=== PATIENT | female | born 1960 | race Caucasian/White ===

== ENCOUNTER → 2016-08-12 | Outpatient (CLI) | payer MEDICARE, OTHER ==
[2015-01-20 20:49] VITALS: BP 229/91
[~2016-08-12] MED LIST: ALBU25PO2 MC; ALPR0.25 PO; AMIT75TA PO; BACLOFEN IT ONE; BUPIVACAINE MPF 0.75% 30 ML VIAL. ONE; BUPR150T6 PO; BUPR300T4 PO; CITA40TA5 PO; CLON0.5T3 PO; CLONIDINE PF 5,000 MCG/10 ML VIAL for PC Charging ONLY. EP ONE; CYCL10TA2 PO; ESTR0.9T PO; EXEN10PE SQ; FENO134C PO; HYDR-2672 PO; HYDR10TA2 PO; HYDR25TA9 PO; INSU100I13 SQ; LAMO200T PO; LIDO700A4 TP; LIDOCAINE/PRILOCAINE TOPICAL CREAM 5GM TUBE. TP ONE; LIPITOR80 MG PO; LOSA100T6 PO; LOVA20TA2 PO; MEDR2.5T5 PO; METF10002 PO; NAPR500T3 PO; OMEP40CA5 PO; POTA10TA10 PO; PREG75CA PO; PROAIR HFA8.5 GM IH; [UNRECOGNIZED DRUG - OTHER]; [UNRECOGNIZED DRUG - OTHER] IT ONE; humalog
--- NOTE | 2016-08-12 22:11 | PN ---
DATE: 08/12/2016 DIAGNOSES: 1. Chronic pain syndrome. 2. Post-lumbar laminectomy syndrome with intrathecal pump therapy. HISTORY OF PRESENT ILLNESS: The patient is a 56-year-old female who returns for followup status post medication management with intrathecal pump, baclofen, clonidine and bupivacaine. The patient reports she is doing fairly well with this. She still has a dull aching pain mostly in her hips bilaterally, has been noticing this most when she is sleeping on her right or left side, essentially equal right and left but reports as 6 on a scale of 10, dull aching pain across the low back as well, more or less very well controlled based pain with her intrathecal pump and oral medications to about 70%-75% improvement, but the hip pain has been more recently over the past 3-4 weeks and again more noticeable when sleeping. The patient reports no new motor or sensory deficits, no new bowel or bladder incontinence or other complaints. PHYSICAL EXAMINATION: VITAL SIGNS: The patient's blood pressure 149/64, pulse 69, respirations are 18, temperature 97.9 degrees Fahrenheit, and weight is 155 pounds. GENERAL: The patient is awake, alert, oriented, appropriate and very pleasant demeanor. HEENT: Head shows normocephalic and atraumatic. Extraocular movements are intact and symmetrical. Oral cavity, mucous membranes are moist and pink. Dentition is intact. NECK: Shows anterior throat supple without palpable lymphadenopathy noted. Swallow reflex is symmetrical. CHEST: Shows normal on inspection. Breath sounds clear to auscultation bilaterally. HEART: Shows S1 and S2 clear. No murmurs auscultated. ABDOMEN: Soft, nontender, and nondistended. No palpable organomegaly is noted. Easily palpable intrathecal pump is noted in the right lower quadrant with surgical scars noted bilaterally. Pump is mobile, but nontender with palpation. EXTREMITIES: The patient's lower extremities showed deep tendon reflexes 1+ in the patellar and tendo calcaneus tendons. Motor exam is strong with 5/5 dorsiflexion, extension, quadriceps and hamstring flexion. The patient has some moderate tenderness with palpation over the lateral aspect of the superior iliac crest as well as the anterior superior iliac spines but only more moderate pain with palpation bilaterally, no abnormalities are noted. The patient shows good rotational motion of the hip joints, both laterally as well as forward flexion and reverse extension without significant pain. With standing, the patient reports no significant pain in the hip joints with weightbearing on right or left leg with standing on one side or the other as well. Options were discussed with the patient. The patient's old chart was reviewed as her current medication regimen updated. Current review of systems updated today as well. We will proceed with intrathecal pump refill and reprogramming as well as PTM reprogramming. Risks were discussed including but not limited to bleeding, infection, possibility of extravasation of medication. No resuscitative measures are necessary as well as poor results regarding pain control. The patient understands and wishes to proceed. Under sterile prep and drape, the patient's pump was draped in usual fashion on the right side. After topical anesthetic was applied approximately 10 minutes prior to the procedure with Emla cream, then sterile prep and drape was performed. The pump was accessed without difficulty using a 22-gauge noncutting [employer] kit needle. Aspiration of 6 mL of the old medication was withdrawn and discarded. The medication of 40 mL containing bupivacaine, clonidine, and baclofen as noted was replaced into the pump. Needle was withdrawn. Sterile bandage was applied. The patient tolerated the procedure well, had no complications. The patient's pump was reprogrammed and will be ready for refill on 10/20/2016 and she will keep an eye on this with her PTM, was reprogrammed today as well. DIAGNOSIS: Chronic pain syndrome with post-lumbar laminectomy syndrome. PROCEDURES: Intrathecal pump refill and reprogramming with PT and reprogramming under sterile prep and drape using local anesthetic, topical. MEDICATIONS WITHDRAWN: A 6 mL of old medication replaced with 40 mL of bupivacaine, clonidine, and baclofen solution for intrathecal use. CONDITION AT DISCHARGE: Stable. The patient tolerated the procedure well, had no complications. ALLISON LYNNE MD DR: MARSHAL/eusebio JOB#: [id number] / [id number]
== END | disposition home or self-care (01) ==
LOC: PNCL 08:24
PROVIDERS: ATTEND Anesthesiology
DX: G89.4 Chronic pain syndrome (principal); M96.1 Postlaminectomy syndrome, not elsewhere classified; E78.00 Pure hypercholesterolemia, unspecified; I10 Essential (primary) hypertension; J44.9 Chronic obstructive pulmonary disease, unspecified; K21.9 Gastro-esophageal reflux disease without esophagitis; E66.9 Obesity, unspecified; E11.9 Type 2 diabetes mellitus without complications; F41.9 Anxiety disorder, unspecified; F32.9 Major depressive disorder, single episode, unspecified; M19.90 Unspecified osteoarthritis, unspecified site; Z87.39 Personal history of other diseases of the musculoskeletal system and connective tissue
CPT/HCPCS: 95991; J0475; J0735; J3490

== ENCOUNTER → 2016-09-07 | Outpatient (CLI) | payer MEDICARE, OTHER ==
[2015-01-20 20:49] VITALS: BP 229/91
[~2016-09-07] MED LIST changes: -BACLOFEN IT ONE; -BUPIVACAINE MPF 0.75% 30 ML VIAL. ONE; -CLONIDINE PF 5,000 MCG/10 ML VIAL for PC Charging ONLY. EP ONE; -LIDOCAINE/PRILOCAINE TOPICAL CREAM 5GM TUBE. TP ONE; -[UNRECOGNIZED DRUG - OTHER] IT ONE
--- NOTE | 2016-09-08 06:53 | PAIN ---
DATE OF SERVICE: 09/07/2016 PROGRESS NOTE FOR PAIN CLINIC DIAGNOSES: 1. Chronic pain syndrome. 2. Post-lumbar laminectomy syndrome with intrathecal pump and intrathecal therapy. HISTORY OF PRESENT ILLNESS: The patient is a 56-year-old female who returns for followup status post intrathecal pump therapy. The patient last seen 08/12/2016. The patient reports she was doing very well except for the last week or so, she fell out of bed and has been having increased pain across her low back and hips, which is generally well controlled with her intrathecal pump medication and she had given it about a week or so to see if the pain would decrease on its own, but has not. She has been doing some stretching exercises, trying to walk and some heat and massage therapy, says it has not decreased the pain, rather constant, is about a 4 on a scale of 10 currently, but can be as high as a 7 on a scale of 10 with increased activity. The patient reports no other injury or accidents, reports that she feels that her mattress may be exacerbating the pain as well and is looking at replacing this soon. The patient reports otherwise no changes. No other side effects or other complaints. PHYSICAL EXAMINATION: VITAL SIGNS: The patient's blood pressure is 149/83, pulse 59, respirations 20, temperature 98.3 degrees Fahrenheit, weight is 156 pounds. GENERAL: The patient is awake, alert, oriented, appropriate, has a very pleasant demeanor. HEENT: Shows normocephalic, atraumatic. Extraocular movements are intact and symmetrical. The patient wears eye glasses. Oral cavity, mucous membranes are moist and pink. Dentition is intact. NECK: Shows anterior throat supple. CHEST: Shows breath sounds clear to auscultation bilaterally, normal on inspection. HEART: Shows S1 and S2 clear. No murmurs are auscultated. ABDOMEN: Soft, nontender, nondistended. Easily palpable intrathecal pump is noted in the right lower quadrant, which is mobile, but nontender. PLAN: Options were discussed with the patient. The patient's old chart was reviewed as was her current medication regimen and updated. Current review of systems updated today as well and we will reprogram the patient's pump for approximate 10% increase with the medications of bupivacaine, baclofen and clonidine. The patient's PTM was reprogrammed as well with still 0.3 mg driving medicine of bupivacaine to be administered on a lockout of 3 hours and a maximum of 5 in a 24-hour period. The patient was cautioned as to the increase in rate and PTM use with the intrathecal pump and will follow up prior to 10/20/2016 for refill if necessary or if the medication is too high or if she is having too much numbness or flaccidity in the lower extremities, we will turn it back down if necessary. The patient was encouraged to look into a different mattress as well as she seems to be having some significant pain in this region at night. ALLISON LYNNE MD DR: MARSHAL/eusebio JOB#: [id number] / [id number]
== END | disposition home or self-care (01) ==
LOC: PNCL 13:36
PROVIDERS: ATTEND Anesthesiology
DX: G89.4 Chronic pain syndrome (principal); M96.1 Postlaminectomy syndrome, not elsewhere classified; E78.00 Pure hypercholesterolemia, unspecified; I10 Essential (primary) hypertension; J44.9 Chronic obstructive pulmonary disease, unspecified; K21.9 Gastro-esophageal reflux disease without esophagitis; E11.9 Type 2 diabetes mellitus without complications; M19.90 Unspecified osteoarthritis, unspecified site; F41.9 Anxiety disorder, unspecified; F32.9 Major depressive disorder, single episode, unspecified; D64.9 Anemia, unspecified
CPT/HCPCS: 95991

== ENCOUNTER → 2016-10-20 | Outpatient (CLI) | payer MEDICARE, OTHER ==
[2015-01-20 20:49] VITALS: BP 229/91
[~2016-10-20] MED LIST changes: +BACLOFEN IT ONE; +BUPIVACAINE MPF 0.75% 30 ML VIAL. ONE; +MEDR2.5T28 PO; -MEDR2.5T5 PO; +METF-620 PO; -METF10002 PO; -POTA10TA10 PO; +POTA10TA12 PO; +[UNRECOGNIZED DRUG - OTHER] IT ONE; +cloNIDine PF 5,000 MCG/10 ML VIAL EP ONE
--- NOTE | 2016-10-21 02:31 | PAIN ---
DATE OF SERVICE: 10/20/2016 PROGRESS NOTE FOR PAIN CLINIC DIAGNOSES: 1. Chronic pain syndrome. 2. Post-lumbar laminectomy syndrome with intrathecal pump therapy. HISTORY OF PRESENT ILLNESS: The patient is a 56-year-old female who returns for followup status post intrathecal pump therapy with baclofen, clonidine and bupivacaine. The patient reports she is doing fairly well. We had seen her on 09/07/2016 with the increase in the pump by 10%. The patient reports she is doing much better since that time, still has some pain in the low back and bilateral lower extremities and some balance issues that she is noticing. She is having some difficulty stumbling. She is still using cane in her right hand to walk, but is noticing that her balance is becoming less and less consistent and she has been having some stumbling and falls lately. The patient reports otherwise the pain is fairly well controlled at 5 on a scale of 10 today, can be as high as 8, but generally not as much. The patient reports this has not awaken her from sleep. She is sleeping well at night. Better with lying down or sitting. The pain in the back and leg is aching, sharp, dull, off and on pain with some cramping also. The patient reports no new motor or sensory deficits, no new bowel or bladder incontinence. No side effects with the medication. PHYSICAL EXAMINATION: VITAL SIGNS: Today, the patient's blood pressure is ____, pulse 72, respirations are 18, temperature is 98.1 degrees Farenheit, weight is 156 pounds. GENERAL: The patient is awake, alert, oriented, appropriate, very pleasant demeanor. HEENT: Head shows normocephalic, atraumatic. Extraocular movements are intact and symmetrical. Oral cavity, mucous membranes moist and pink. Dentition is intact. NECK: Shows anterior throat supple without palpable lymphadenopathy noted. Swallow reflex is symmetrical. CHEST: Shows normal on inspection. Breath sounds are clear to auscultation bilaterally. HEART: Shows S1 and S2 clear. ABDOMEN: Soft, nontender, nondistended. No palpable organomegaly. No rebound or guarding demonstrated. Easily palpable intrathecal pump is noted on the right lower quadrant which is mobile, but nontender to palpation. EXTREMITIES: The patient's lower extremities showed deep tendon reflexes at 1+ in the patellar and tendo calcaneus tendons. Motor exam is strong with 5/5 dorsiflexion, extension, quadriceps and hamstring flexion and symmetrical. Options were discussed with the patient. The patient's old chart was reviewed as her current medication regimen updated. Current review of systems updated today as well. We will refill patient's intrathecal pump. Under sterile prep and drape with reprogramming of the pump as well as her PTM device for volume changes and PTM settings, the patient was consented and risks were discussed including, but not limited to, bleeding, infection, possibility of extravasation of medication and resuscitative measures with absorption of ____ medication as well as pump damage and poor results regarding pain control. The patient understands and wishes to proceed. The patient will return to the clinic prior to 12/24/2016 for next refill or sooner if necessary. The patient was counseled on activity level as well as side effects to be aware of and will follow up as scheduled. The patient is also having some difficulty controlling her blood sugars and will follow up with her primary care physician who is helping her regularize this as soon as next week and we encouraged her to keep that appointment as well. DIAGNOSES: Chronic pain syndrome with post-lumbar laminectomy syndrome. PROCEDURE: Intrathecal pump interrogation, refill and reprogramming. Under sterile prep and drape using no anesthetic, 22 gauge noncutting [employer] kit needle, pump was accessed without difficulty. Under sterile prep and drape and sterile technique, 6 mL of old medication was withdrawn and discarded and 40 mL of the medication containing bupivacaine, clonidine and baclofen was then replaced. The sterile needle was withdrawn and sterile bandage applied. The patient tolerated the procedure well and had no complications. CONDITION AT DISCHARGE: Stable. ALLISON LYNNE MD DR: MARSHAL/eusebio JOB#: [id number] / [id number]
== END | disposition home or self-care (01) ==
LOC: PNCL 09:52
PROVIDERS: ATTEND Anesthesiology
DX: G89.4 Chronic pain syndrome (principal); M96.1 Postlaminectomy syndrome, not elsewhere classified; E78.00 Pure hypercholesterolemia, unspecified; I10 Essential (primary) hypertension; J44.9 Chronic obstructive pulmonary disease, unspecified; E66.9 Obesity, unspecified; K21.9 Gastro-esophageal reflux disease without esophagitis; F41.9 Anxiety disorder, unspecified; F32.9 Major depressive disorder, single episode, unspecified; D64.9 Anemia, unspecified; M19.90 Unspecified osteoarthritis, unspecified site; Z86.69 Personal history of other diseases of the nervous system and sense organs; Z87.39 Personal history of other diseases of the musculoskeletal system and connective tissue
CPT/HCPCS: 62370; J0475; J0735; J3490; 95991

== ENCOUNTER → 2017-01-03 | Outpatient (CLI) | payer MEDICARE, OTHER ==
[2015-01-20 20:49] VITALS: BP 229/91
[~2017-01-03] MED LIST changes: -EXEN10PE SQ; +EXEN10PE3 SQ; -HYDR-2672 PO; +HYDR-2766 PO
--- NOTE | 2017-01-03 23:13 | PAIN ---
DATE OF SERVICE: 01/03/2017 PROGRESS NOTE FOR PAIN CLINIC DIAGNOSES: 1. Chronic pain syndrome. 2. Post-lumbar laminectomy syndrome with intrathecal pump therapy and PTM therapy. HISTORY OF PRESENT ILLNESS: The patient, a 56-year-old female, returns for followup status post medication management with intrathecal pump containing baclofen, clonidine and bupivacaine. The patient reports she is doing quite well with this, pain level is about 3 on a scale of 10 at its worst, worse with activity, pain across the low back into bilateral lower extremities, mostly in the hips and thighs, but the patient reports it is only aching, dull pain, worse with activity, but fairly well controlled by about 75% with the intrathecal pump. The patient reports no side effects with the medications and reports she is doing well. She has been increasing her activity recently and she has been watching her grandchild at home most days during summer break from school and this does increase her pain to some extent, but she is able to control it fairly well with her PTM. The patient reports no side effects with medications, no new motor or sensory deficits. The patient reports it awakens her from sleep occasionally, but not every night and she is able to reposition herself and get back to sleep fairly quickly. The patient reports no new motor or sensory deficits, no new bowel or bladder incontinence or other complaints. PHYSICAL EXAMINATION: VITAL SIGNS: The patient's blood pressure is 150/73, pulse 64, respirations 18, temperature 98.0 degrees Fahrenheit, weight is 159 pounds. GENERAL: The patient is awake, alert, oriented, appropriate, has a very pleasant demeanor. HEENT: Shows normocephalic, atraumatic. Extraocular movements are intact and symmetrical. Oral cavity shows mucous membranes moist and pink. Dentition is intact. NECK: Shows anterior throat supple without palpable lymphadenopathy noted. Swallow reflex is symmetrical. Neck shows full rotational motion of the cervical spine without difficulty or tenderness. CHEST: Shows normal on inspection. Breath sounds are clear to auscultation bilaterally. HEART: Shows S1 and S2 clear. No murmurs auscultated. ABDOMEN: Soft, nontender, nondistended. No palpable organomegaly is noted. No rebound or guarding demonstrated. Easily palpable intrathecal pump is noted in the right lower quadrant, which is mobile and nontender. BACK: Shows spine grossly in the midline, well-healed surgical scar in the lumbar distribution on inspection and paraspinous musculature is symmetrical as well, with palpation shows some mild to moderate tenderness in the lower lumbar distribution in the paraspinous muscles, but only diffusely without radiation. No tenderness over the sacrum or sacroiliac regions or the spinous processes. The patient does show good rotational motion of the lumbar spine, both laterally as well as extension and flexion with some minor pain with extension, but not with forward flexion. Again, no radiation noted. EXTREMITIES: The patient's lower extremities showed deep tendon reflexes at 1+ in the patellar and tendo calcaneus tendons. Motor exam is strong with dorsiflexion, extension, quadriceps and hamstring flexion rated at 5/5 and equal. The patient is walking with a cane in her right hand, has a significant antalgic gait and appears to limp favoring the right lower extremity slightly. Peripheral pulses are 1+ posterior tibial and dorsalis pedis pulses. No peripheral edema is noted bilaterally. PLAN: Options were discussed with the patient. The patient's old chart was reviewed as was her current medication regimen and updated. Current review of systems updated today as well. We will proceed with an intrathecal pump refill and reprogramming as well as PTM reprogramming. Risks were discussed including, but not limited to bleeding, infection, possibility of extravasation of the intrathecal medication and resuscitative measures if necessary as well as poor results regarding pain control. The patient understands and wishes to proceed. The patient will return to the clinic prior to 03/09/2017, which is her next refill date at full use and will keep track of this with her PTM as well. The patient was counseled as to her activity level as well as side effects to be aware of and new medication adjustment with the PTM use and cautioned. The patient was encouraged to increase her activity as tolerated. Will maintain the safety of her pump on her abdomen without significant restrictive clothing, etc. DIAGNOSES: Chronic pain syndrome, with post-lumbar laminectomy syndrome. PROCEDURE: Intrathecal pump refill and reprogramming, using a 22-gauge noncutting [employer] kit needle, under sterile prep and drape, with medications withdrawn, 2 mL of old medication and medication replaced is 40 mL of medication containing bupivacaine, baclofen and clonidine as documented for the intrathecal mixture. Sterile needle was withdrawn. Sterile bandage placed. Pump was then reprogrammed and recalibrated for PTM settings as well as volume and rate. The patient will follow up prior to 03/09/2017. CONDITION AT DISCHARGE: Stable. The patient tolerated the procedure well, had no complications. ALLISON LYNNE MD DR: MARSHAL/eusebio JOB#: [id number] / [id number]
== END | disposition home or self-care (01) ==
LOC: PNCL 10:58
PROVIDERS: ATTEND Anesthesiology
DX: M96.1 Postlaminectomy syndrome, not elsewhere classified (principal); I11.0 Hypertensive heart disease with heart failure; I50.9 Heart failure, unspecified; J44.9 Chronic obstructive pulmonary disease, unspecified; E78.00 Pure hypercholesterolemia, unspecified; E66.9 Obesity, unspecified; Z68.43 Body mass index [BMI] 50.0-59.9, adult; M19.90 Unspecified osteoarthritis, unspecified site; D64.9 Anemia, unspecified; F41.9 Anxiety disorder, unspecified; F32.9 Major depressive disorder, single episode, unspecified; F17.200 Nicotine dependence, unspecified, uncomplicated; Z86.69 Personal history of other diseases of the nervous system and sense organs; Z87.39 Personal history of other diseases of the musculoskeletal system and connective tissue; Z91.048 Other nonmedicinal substance allergy status; Z88.8 Allergy status to other drugs, medicaments and biological substances
CPT/HCPCS: 62370; J0475; J0735; J3490; 95991

== ENCOUNTER 2017-01-16 18:05 | Inpatient (IN) | payer MEDICARE, OTHER ==
[~2017-01-16] VITALS: Ht 172.7 cm; Wt 73.1 kg
[~2017-01-16 18:05] MED LIST changes: -BACLOFEN IT ONE; -BUPIVACAINE MPF 0.75% 30 ML VIAL. ONE; -[UNRECOGNIZED DRUG - OTHER] IT ONE; -cloNIDine PF 5,000 MCG/10 ML VIAL EP ONE
[2017-01-16 18:25] LABS: BASO # 0.1 x10^3/uL (0.0-0.2); BASO % 1 % (0-3); EOS % 2 % (0-3); HEMATOCRIT 38.5 % (36.0-47.0); HEMOGLOBIN 13.4 g/dL (12.0-15.5); LYMPH # 2.6 x10^3/uL (1.0-4.8); LYMPH % 32 % (24-48); MEAN CORPUSCULAR HEMOGLOBIN 30 pg (25-35); MEAN CORPUSCULAR HGB CONC 35 g/dL (31-37); MEAN CORPUSCULAR VOLUME 86 fL (79-100); MONO % 8 % (0-9); NEUT % 57 % (31-73); PLATELET COUNT 323 x10^3/uL (140-400); RED BLOOD COUNT 4.46 x10^6/uL (3.50-5.40); RED CELL DISTRIBUTION WIDTH 12.4 % (11.5-14.5); WHITE BLOOD COUNT 8.2 x10^3/uL (4.0-11.0)
[2017-01-16] MEDS: NITROGLYCERIN SUBLINGUAL 0.4 MG BOTTLE OF 25. SL PRN ×2 (18:26→19:20)
[2017-01-16] MEDS ORDERED: ASPIRIN 325 MG TABLET PO ONE (18:30)
[2017-01-16 18:37] LABS: INR 1.1 (0.8-1.1); PROTHROMBIN TIME PATIENT 13.6 SEC (11.7-14.0)
[2017-01-16 18:39] LABS: CALCIUM 9.5 mg/dL (8.5-10.1); CREATININE 1.1 mg/dL (0.6-1.0); POTASSIUM 3.6 mmol/L (3.5-5.1)
[2017-01-16 18:44] LABS: TOTAL BILIRUBIN 0.3 mg/dL (0.2-1.0); TOTAL PROTEIN 7.9 g/dL (6.4-8.2)
[2017-01-16 20:15] VITALS: BP 119/43
[2017-01-16] MEDS ORDERED: HEPARIN for IV BOLUS 10,000 UNIT/10 ML VIAL. IV PRN (20:15)
[2017-01-16] MEDS ORDERED: HEPARIN for IV BOLUS 10,000 UNIT/10 ML VIAL. IV ONE (20:15)
[2017-01-16] MEDS ORDERED: NITROGLYCERIN SUBLINGUAL 0.4 MG BOTTLE OF 25. SL PRN (20:15)
[2017-01-16] MEDS ORDERED: ONDANSETRON PF 4 MG/2 ML VIAL. IV PRN (20:15)
[2017-01-16] MEDS ORDERED: ACETAMINOPHEN 325 MG TABLET. PO PRN (20:15)
[2017-01-16] MEDS ORDERED: MORPHINE SULFATE 4 MG/ML DISP.SYRIN. IV PRN (20:15)
[2017-01-16] MEDS ORDERED: HEPARIN 25,000UTS/500ML PREMIX 500 ML IV PRN ×2 (20:15→22:00)
[2017-01-16] MEDS: IPRATRPIUM/ALBUTEROL 0.5/2.5MG 3 ML NEBU. NEB SCH (20:26)
--- NOTE | 2017-01-16 20:47 | PHYS DOC ---
Past Medical History Past Medical History: Anxiety, Depression, Diabetes-Type II, Hypertension, Other Additional Past Medical Histor: shingles Past Surgical History: Other Additional Past Surgical Histo: pain pump insertion Alcohol Use: None Drug Use: Marijuana Adult General Chief Complaint Chief Complaint: CHEST PAIN HPI HPI Patient is a 56 year old female who presents with chest pain. The patient reports intermittent symptoms since yesterday, primarily occurring with minimal exertion. She reports pressure-like substernal chest pain with radiation to her back. Reports shortness of breath, nausea, diaphoresis. Denies fevers or chills , cough, lower extremity pain or swelling. She has history of angina, states this is different from her usual chest pain. She has history of COPD, diabetes, hypertension. She is a former smoker. PCP is Dr. Campbell and her cutter operator asbestos shingle is Dr. Marinelli. Review of Systems Review of Systems Constitutional: Denies fever or chills Eyes: Denies change in visual acuity HENT: Denies nasal congestion or sore throat Respiratory: Denies cough, reports shortness of breath Cardiovascular: Reports chest pain, denies edema GI: Reports nausea, denies abdominal pain, vomiting, bloody stools or diarrhea : Denies dysuria or hematuria Musculoskeletal: Denies back pain or joint pain Integument: Denies rash or skin lesions Neurologic: Denies headache, focal weakness or sensory changes Current Medications Current Medications Current Medications Medications (Trade) Dose Ordered Sig/[facility] Start Time Stop Time Status Last Admin Dose Admin Aspirin (Martin Aspirin) 325 mg 1X ONCE 01/16/17 18:30 01/16/17 18:31 DC 01/16/17 18:24 325 MG Nitroglycerin (Nitrostat) 0.4 mg PRN Q5MIN PRN 01/16/17 18:30 01/16/17 19:20 0.4 MG Allergies Allergies Allergies Coded Allergies Type Severity Reaction Last Updated Verified fentanyl Allergy Severe Anaphylaxis 01/16/15 Yes iodine Allergy Intermediate 01/16/15 Yes lorazepam Allergy Intermediate CRAZY FEELINGS 01/16/15 Yes Physical Exam Physical Exam Constitutional: Well developed, well nourished, no acute distress, non-toxic appearance. HENT: Normocephalic, atraumatic, bilateral external ears normal, oropharynx moist, nose normal. Eyes: PERRLA, EOMI, conjunctiva normal, no discharge. Neck: supple, no stridor. Cardiovascular: RRR, no murmurs, no edema. Lungs & Thorax: LCTAB, no wheezing, no respiratory distress. No reproducible tenderness with palpation of her anterior chest wall. Abdomen: soft, nontender, nondistended. Skin: Warm, dry, no erythema, no rash. Back: No tenderness. Extremities: No tenderness, no edema. No calf Tenderness or swelling Neurologic: Alert and oriented X 3, no focal deficits noted. Psychologic: Affect normal, judgement normal, mood normal. Current Patient Data Vital Signs Vital Signs Date Time Temp Pulse Resp B/P (MAP) Pulse Ox O2 Delivery O2 Flow Rate FiO2 01/16/17 19:20 75 138/64 01/16/17 19:11 16 98 Room Air 01/16/17 18:08 99.0 99.0 Lab Values Laboratory Tests Test 01/16/17 18:15 White Blood Count 8.2 x10^3/uL (4.0-11.0) Red Blood Count 4.46 x10^6/uL (3.50-5.40) Hemoglobin 13.4 g/dL (12.0-15.5) Hematocrit 38.5 % (36.0-47.0) Mean Corpuscular Volume 86 fL (79-100) Mean Corpuscular Hemoglobin 30 pg (25-35) Mean Corpuscular Hemoglobin Concent 35 g/dL (31-37) Red Cell Distribution Width 12.4 % (11.5-14.5) Platelet Count 323 x10^3/uL (140-400) Neutrophils (%) (Auto) 57 % (31-73) Lymphocytes (%) (Auto) 32 % (24-48) Monocytes (%) (Auto) 8 % (0-9) Eosinophils (%) (Auto) 2 % (0-3) Basophils (%) (Auto) 1 % (0-3) Neutrophils # (Auto) 4.7 x10^3uL (1.8-7.7) Lymphocytes # (Auto) 2.6 x10^3/uL (1.0-4.8) Monocytes # (Auto) 0.6 x10^3/uL (0.0-1.1) Eosinophils # (Auto) 0.2 x10^3/uL (0.0-0.7) Basophils # (Auto) 0.1 x10^3/uL (0.0-0.2) Prothrombin Time 13.6 SEC (11.7-14.0) Prothrombin Time INR 1.1 (0.8-1.1) PTT 27 SEC (24-38) Sodium Level 136 mmol/L (136-145) Potassium Level 3.6 mmol/L (3.5-5.1) Chloride Level 97 mmol/L (98-107) L Carbon Dioxide Level 26 mmol/L (21-32) Anion Gap 13 (6-14) Blood Urea Nitrogen 21 mg/dL (7-20) H Creatinine 1.1 mg/dL (0.6-1.0) H Estimated GFR (Cockcroft-Gault) 51.0 BUN/Creatinine Ratio 19 (6-20) Glucose Level 364 mg/dL (70-99) H Calcium Level 9.5 mg/dL (8.5-10.1) Total Bilirubin 0.3 mg/dL (0.2-1.0) Aspartate Amino Transferase (AST) 8 U/L (15-37) L Alanine Aminotransferase (ALT) 19 U/L (14-59) Alkaline Phosphatase 90 U/L (46-116) Troponin I Quantitative < 0.017 ng/mL (0.000-0.055) RJ-Wex-I-Type Natriuretic Peptide 120 pg/mL (0-124) Total Protein 7.9 g/dL (6.4-8.2) Albumin 4.0 g/dL (3.4-5.0) Albumin/Globulin Ratio 1.0 (1.0-1.7) Laboratory Tests 01/16/17 18:15 Laboratory Tests 01/16/17 18:15 EKG EKG Interpreted by me: Normal sinus rhythm rate 87, no ST elevation, T waves are inverted without ST depression in leads 2, 3, aVF, V3 through V6, which appears new/more pronounced from previous study dated 01/10/2015[] Radiology/Procedures Radiology/Procedures Chest x-ray: Interpreted by me: No cardiomegaly, no infiltrate, no pneumothorax , no acute process. [] Course & Med Decision Making Course & Med Decision Making Pertinent Labs and Imaging studies reviewed. (See chart for details) The patient presents with chest pain. Administered aspirin on arrival. Pain had improved, declined need for pain medication. Obtained labs, EKG, chest x-ray. EKG concerning for new ischemic changes without STEMI. Troponin was negative. Discussed with Dr. Marinelli who agrees with admission and heparin administration. He came to the emergency Department to evaluate the patient himself. Consulted with Dr. Campbell who agrees to admit the patient to inpatient status. Patient is being admitted in stable condition. Critical care time: 35 minutes [] Dragon Disclaimer Dragon Disclaimer This electronic medical record was generated, in whole or in part, using a voice recognition dictation system. Departure Departure Impression: Primary Impression: Unstable angina Additional Impression: Hyperglycemia Disposition: ADMITTED INPATIENT Admitting Physician: Kenyetta Campbell Condition: STABLE Problem Qualifiers ANTONIO BEGUM MD Jan 16, 2017 20:47
[2017-01-16] MEDS ORDERED: AMLO5TAB2 PO (21:00)
[2017-01-16] MEDS ORDERED: ONDA4TAB10 SL (21:00)
[2017-01-16] MEDS ORDERED: MEDR2.5T PO (21:00)
[2017-01-16] MEDS: INSULIN ASPART 300 UNITS/3 ML INSULN.PEN SQ SCH (21:00)
[2017-01-16] MEDS ORDERED: DEXTROSE 50% 25 GM / 50ML DISP.SYRIN. IV PRN (21:00)
[2017-01-16] MEDS ORDERED: TOPI50TA8 PO (21:01)
[2017-01-16] MEDS ORDERED: CYCLOBENZAPRINE 10 MG TABLET. PO PRN (21:30)
[2017-01-16] MEDS ORDERED: ALPRAZolam 0.5 MG TABLET PO PRN (21:30)
[2017-01-16] MEDS ORDERED: ALBUTEROL SULFATE 2.5 MG/3 ML NEBU. NEB PRN (21:30)
[2017-01-16] MEDS: EXENATIDE 5 MCG/0.02 ML SQ SCH (21:57)
[2017-01-16] MEDS: ONDANSETRON ODT 4 MG TAB.RAPDIS. PO SCH (21:59)
[2017-01-16] MEDS: ATORVASTATIN CALCIUM 40 MG TABLET. PO SCH (21:59)
[2017-01-16] MEDS: TOPIRAMATE 25 MG TABLET. PO SCH (21:59)
[2017-01-16] MEDS: PREGABALIN 75 MG CAPSULE PO SCH (21:59)
[2017-01-16] MEDS ORDERED: INSULIN DETEMIR 300 UNITS/3 ML INSULN.PEN. SQ SCH (22:00)
[2017-01-16] MEDS ORDERED: EXENATIDE 10 MCG/0.04 ML 2.4ML PEN.INJCTR. SQ SCH (22:00)
[2017-01-16 23:05] VITALS: BP 128/40
--- NOTE | 2017-01-17 00:07 | ACF ---
Admission Forms Criteria CARDIOLOGY GRG Clinical Indications for Admission to Inpatient Care ( [place]/check or initial the applicable condition/criteria) Hospital admission is needed for appropriate care of the patient because of ANY ONE of the following: [ ] I. Hemodynamic instability as indicated by ALL of the following (1)(2)(3) (4)(5)(6)(7)(8)(9)(10) [ ]a) Vital sign abnormality not readily corrected by appropriate treatment with 12-24 hours for ANY ONE: [ ]i) Hypotension that persists despite appropriate treatment (eg, volume repletion) [ ]ii) Tachycardiathat persists despite appropriate tx ( e.g., analgesia, fluids, sedation as indicated [ ]iii) Orthostatic vital sign changes that persists despite appropriate treatment (eg, volume repletion) [ ]b) Vital sign abnormailty that is severe indicated by ANY ONE of the following: [ ]i) Inadequate perfusion indicated by ANY ONE of the following: [ ] 1) Lactic acidosis (> 2 mmol/L) [ ] 2) New abnormal capillary refill (> 3 seconds) [ ] 3) Reduced urine output [ ] 4) New altered mental status [ ] 5) Myocardial Ischemia [ ] 6) Other metabolic acidosis (arterial pH <7.35 ) not otherwise explained. [ ]ii) Mean arterial pressure[A] less than 60 mm Hg [ ]iii) Mean arterial pressure[A] less than 70 mm Hg after 30 minutes of appropriate treatment (eg, fluid resuscitation) [ ]iv) Sustained heart rate greater than 120 beats per minute in adult or child 6 years or older[B] [ ]v) IV inotropic or vasopressor medication required to maintain adequate blood pressure or perfusion [ ] II. Severe heart failure as indicated by ANY ONE of the following(17)(18) [ ]a) Respiratory distress [ ]b) Hypotension [ ]c) Debilitating anasarca refractory to therapy (eg, tissue breakdown with infection)[C](19) [ ]d) Cardiac arrhythmias of immediate concern [ ]e) Myocardial ischemia [ ] III. Cardiac arrhythmias or findings of immediate concern indicated by ANY ONE of the following (21)(22): [ ] a) Heart rhythms that are inherently dangerous or unstable indicated by ANY ONE of the following (23)(24)(25): [ ] i) Resuscitated ventricular fibrillation or cardiac arrest [ ] ii) Ventricular escape rhythm [ ] iii) Sustained ventricular tachycardia (30 seconds or more of ventricular rhythm at greater than 100 beats per minute) [ ] iv) Nonsustained ventricular tachycardia and ANY ONE of the following: [ ] 1) Suspected cardiac ischemia as cause or consequence of ventricular tachycardia [ ] 2) Acute myocarditis [ ] b) Unstable cardiac conduction defects indicated by ANY ONE of the following(25)(26)(27) [ ] i) Type II second-degree atrioventricular block [ ]ii) Third-degree atrioventricular block [ ]iii) New-onset left bundle branch block with suspected myocardial ischemia [ ]c) Any heart rhythm and ANY ONE of the following (23)(24)(28)(29) (30) [ ] i) Continuous long-term ECG monitoring needed (e.g., initiation of drug requiring monitoring for more than 24 hours) [ ] ii) Patient has automatic implanted cardioverter defibrillator that is repeatedly firing, malfunctioning, or in need of immediate adjustment of settings beyond the scope of ambulatory or observation care [ ]d) Heart rhythms of concern due to ANY ONE of the following: [ ] i) Hypotension [ ] ii) Respiratory distress [ ] iii) Association with other significant symptoms (e.g., bradycardia with syncope or ongoing dizziness, supraventricular tachycardia with chest pain (28)(29)(31) [ ] IV. Monitoring for cardiac contusion beyond the scope of observation care needed [A](32)(33)(34) [ ] V. Surgical or device complication (e.g., valve replacement complication , ICD disfunction or pacemaker dysfunction) (49)(50)(51)(52)(53)(54) [ ] . Inpatient palliative care needed. [F](51)(52) Also use Inpatient Palliative Care Criteria [ ] VII. Nonbacterial thrombotic (marantic) endocarditis(43)(44)(55)(56)(57) [X ] VIII. Cardiology condition, symptom, or finding for which emergency and observation care has failed or are not considered appropriate. [ ] IX. Acute valvular disease requiring inpatient as indicated by ANY ONE of the following (40)(41) [ ]a) Acute valvular regurgitation (42) [ ]b) Noninfectious valvulitis (43)(44) [ ]c) Obstructive valve thrombosis (45)(46) [ ]d) Paravalvular leak(47)(48) [ ]e) Other significant valvular disorder remaining after emergency or observation level of care (as appropriate) [ ]X. Pericardial disease requiring inpatient treatment as indicated by ANY ONE of the following (35)(36)(37)(38) [ ]a) Suspected tamponade [ ]b) Hemopericardium [ ]c) Other significant pericardial disorder remaining after emergency or observation level of care (as appropriate)(39) [ ] XI. Cardiac ischemia beyond scope of emergency and observation care. [ ] XII. Cyanotic heart disease requiring inpatient care as indicated by 1 or more of the following(58)(59)(60): [ ]a) Acute onset of hypoxemia [ ]b) Exacerbation [ ] XIII. Hypertension requiring inpatient treatment as indicated by ANYONE of the following(11)(12)(13)(14): [ ]a) Severe hypertension (SBP greater than 180 mm Hg or DBP greater than 110 mm Hg, or greater than the 95th percentile for age, gender, and height in pediatric patients) that cannot be controlled (eg, to SBP less than 160 mm Hg and DBP less than 100 mm Hg) by emergency department or observation care treatment(15) [ ]b) Acute end organ damage secondary to hypertension (SBP greater than 140 mm Hg or DBP greater than 90 mm Hg) as indicated by ANYONE of the following: [ ] i) Hypertensive encephalopathy (eg, Altered mental status)(16) [ ] ii) Cerebral infarction [ ] iii) Intracranial hemorrhage [ ] iv) Myocardial ischemia or infarction [ ] v) Heart failure (eg, pulmonary edema) [ ] vi) Aortic dissection [ ] vii) Increased creatinine (new) with reduction of more than 50% in estimated glomerular filtration rate from baseline [ ] viii) Papilledema [ ] ix) Retinal hemorrhage [ ] x) Microangiopathic hemolytic anemia [ ] xi) Seizure [ ] xii) Other significant finding secondary to hypertension [ ] XIV. Complications of transplanted heart indicated by ANY ONE of the following(61): [ ]a) Acute graft rejection requiring inpatient management (eg, intravenous imunosuppression)(62)(63) [ ]b) Acute graft heart failure indicated by ANY ONE of the following(64): [ ] i) Hemodynamic instability [ ] ii) Cardiac arrhythmias of immediate concern [ ] iii) Pulmonary edema that is very severe (eg, mechanical ventilation needed, imminent or likely, need for 100% oxygen to keep oxygen saturation above 90%) [ ] iv) Pulmonary edema that is persistent as indicated by ALL of the following: [ ] 1) New need for oxygen therapy to keep oxygen saturation above 90 % (or increased FiO2 need from baseline) [ ] 2) Has not improved sufficiently with emergency department or observation care IV diuretics or other heart failure treatments[E]. [ ] iv) Altered mental status that is severe or persistent [ ] iv) Increased creatinine (new on laboratory test) with reduction of more than 50% in estimated glomerular filtration rate from baseline [ ] iv) Progressively (ongoing) rising creatinine (known from past laboratory test) with reduction of more than 25% in estimated glomerular filtration rate from baseline [ ] iv) Acute renal failure [ ] iv) Acute peripheral ischemia (eg, examination shows pulseless, cool, mottled, or cyanotic extremity) [ ] iv) Pulmonary artery catheter monitoring needed [ ] iv) Other sign or symptom of heart failure requiring inpatient treatment (ie, too severe or not responsive to outpatient and observation care treatment) [ ]c) Infection requiring inpatient management (eg, Hemodynamic instability, need for intravenous antimicrobial treatment)(66)(67)(68)(69)(70) [ ]d) Cardiac allograft vasculopathy requiring inpatient management (eg evidence of cardiacischemia)(71) [ ]e) Other complication of transplanted heart (eg, stroke, severe pulmonary hypertension, severe valvular dysfunction) requiring inpatient management(72) The original [employer] [facility] content created by [employer] [facility] [employer] has been revised. The portions of the content which have been revised are identified through the use of italic text, and [facility] has neither reviewed nor approved the modified material. All other unmodified content is copyright [facility] [employer]. Please see references footnoted in the original [facility] [employer] edition 2014 Admission Criteria Met?: Yes ELLEN KENT Jan 17, 2017 00:07
[2017-01-17] MEDS: HYDROcodone/APAP 10/325 1 TAB TABLET PO PRN ×3 (01:23→15:08)
[2017-01-17 03:15] VITALS: BP 106/48
[2017-01-17] MEDS: ONDANSETRON ODT 4 MG TAB.RAPDIS. PO SCH ×3 (06:00→21:06)
--- NOTE | 2017-01-17 06:21 | EKG ---
[facility] [address] [place] [address] Test Date: 2017-01-17 Test Time: 06:09:54 Pat Name: MAT FALK Department: Room: 210 Gender: F Body Bumper: CECILIO : 1960 Requested By: ANTONIO BEGUM Order Number: [id number] Reading MD: Amanda Young Measurements Intervals [place] Rate: 54 P: 40 CO: 192 QRS: 43 QRSD: 102 T: 40 QT: 548 QTc: 527 Interpretive Statements SINUS RHYTHM PROLONGED QT Electronically Signed On 01-18-2017 20:31:16 CDT by Amanda Young
--- NOTE | 2017-01-17 07:06 | EKG ---
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
[2017-01-17 07:10] VITALS: BP 123/53
[2017-01-17] MEDS: IPRATRPIUM/ALBUTEROL 0.5/2.5MG 3 ML NEBU. NEB SCH ×4 (07:30→19:06)
[2017-01-17] MEDS: ANTI-COAG MONITOR BY PHARMACY. MC PRN (08:08)
--- NOTE | 2017-01-17 08:10 | RAD ---
Portable chest, 01/16/2017: History: Chest pain Comparison is made to a study from 08/09/2013. The heart size and pulmonary vascularity are normal. No pulmonary infiltrates are seen. There is no evidence of pleural fluid. Mild spurring is present in the spine. IMPRESSION: No acute cardiopulmonary abnormality is detected.
[2017-01-17 08:16] LABS: HEMATOCRIT 37.3 % (36.0-47.0); HEMOGLOBIN 12.7 g/dL (12.0-15.5); RED BLOOD COUNT 4.28 x10^6/uL (3.50-5.40); RED CELL DISTRIBUTION WIDTH 12.3 % (11.5-14.5)
[2017-01-17] MEDS: POTASSIUM CHLORIDE 10 MEQ TABLET.ER. PO SCH ×2 (08:21→17:53)
[2017-01-17] MEDS: TOPIRAMATE 25 MG TABLET. PO SCH ×2 (08:21→21:03)
[2017-01-17] MEDS: EXENATIDE 5 MCG/0.02 ML SQ SCH ×2 (08:21→21:06)
[2017-01-17] MEDS: PREGABALIN 75 MG CAPSULE PO SCH ×3 (08:21→21:03)
[2017-01-17] MEDS: INSULIN ASPART 300 UNITS/3 ML INSULN.PEN SQ SCH ×4 (08:27→17:56)
--- NOTE | 2017-01-17 09:04 | PDOC ---
PROGRESS NOTES Subjective Subjective Patient reports some mild intermittent CP persists. Denies SOA. Objective Objective Vital Signs Date Time Temp Pulse Resp B/P (MAP) Pulse Ox O2 Delivery O2 Flow Rate FiO2 01/17/17 07:32 99 Room Air 01/17/17 07:10 97.8 60 18 123/53 (76) 97.8 Intake and Output 01/17/17 07:00 Intake Total 564 ml Output Total 1050 ml Balance -486 ml Intake Oral 400 ml IV Total 164 ml Output Urine Total 1050 ml Physical Exam Abdomen: Normal bowel sounds, Soft, No tenderness Heart: Regular rate Extremities: No edema General: Alert, Oriented X3, No acute distress Lungs: Clear to auscultation Psych/Mental Status: Mood NL Assessment Assessment Problems Medical Problems: (1) Hyperglycemia Status: Acute (2) Unstable angina Status: Acute Plan Plan of Care 1. Chest pain with hx of CAD - symptoms improved after NTG in ER. Troponin negative x2. On Heparin gtt now, await further evaluation per Dr Marinelli. 2. DM2 - patient sees Endocrine for this, reports her blood sugars have been elevated recently. Continue home meds and use SS as needed. 3. HTN - stable, continue home meds. 4. mood disorder with chronic anxiety and depression - patient reports increased family stress recently which she feels could have contributed to her chest pain. On new med recently from Psychiatry, continue home meds. 5. COPD - stable. Patient quit smoking cigarettes years ago. 6. chronic back pain - fairly well controlled with her usual [place] and intrathecal pump from Pain Clinic. Comment Review of Relevant I have reviewed the following items johan (where applicable) has been applied. Labs Laboratory Tests Test 01/16/17 18:15 01/16/17 21:04 01/17/17 02:00 01/17/17 07:12 White Blood Count 8.2 x10^3/uL (4.0-11.0) Red Blood Count 4.46 x10^6/uL (3.50-5.40) Hemoglobin 13.4 g/dL (12.0-15.5) Hematocrit 38.5 % (36.0-47.0) Mean Corpuscular Volume 86 fL (79-100) Mean Corpuscular Hemoglobin 30 pg (25-35) Mean Corpuscular Hemoglobin Concent 35 g/dL (31-37) Red Cell Distribution Width 12.4 % (11.5-14.5) Platelet Count 323 x10^3/uL (140-400) Neutrophils (%) (Auto) 57 % (31-73) Lymphocytes (%) (Auto) 32 % (24-48) Monocytes (%) (Auto) 8 % (0-9) Eosinophils (%) (Auto) 2 % (0-3) Basophils (%) (Auto) 1 % (0-3) Neutrophils # (Auto) 4.7 x10^3uL (1.8-7.7) Lymphocytes # (Auto) 2.6 x10^3/uL (1.0-4.8) Monocytes # (Auto) 0.6 x10^3/uL (0.0-1.1) Eosinophils # (Auto) 0.2 x10^3/uL (0.0-0.7) Basophils # (Auto) 0.1 x10^3/uL (0.0-0.2) Prothrombin Time 13.6 SEC (11.7-14.0) Prothromb Time International Ratio 1.1 (0.8-1.1) Activated Partial Thromboplast Time 27 SEC (24-38) Sodium Level 136 mmol/L (136-145) Potassium Level 3.6 mmol/L (3.5-5.1) Chloride Level 97 mmol/L (98-107) Carbon Dioxide Level 26 mmol/L (21-32) Anion Gap 13 (6-14) Blood Urea Nitrogen 21 mg/dL (7-20) Creatinine 1.1 mg/dL (0.6-1.0) Estimated GFR (Cockcroft-Gault) 51.0 BUN/Creatinine Ratio 19 (6-20) Glucose Level 364 mg/dL (70-99) Calcium Level 9.5 mg/dL (8.5-10.1) Total Bilirubin 0.3 mg/dL (0.2-1.0) Aspartate Amino Transf (AST/SGOT) 8 U/L (15-37) Alanine Aminotransferase (ALT/SGPT) 19 U/L (14-59) Alkaline Phosphatase 90 U/L (46-116) Troponin I Quantitative < 0.017 ng/mL (0.000-0.055) < 0.017 ng/mL (0.000-0.055) GF-Rfh-A-Type Natriuretic Peptide 120 pg/mL (0-124) Total Protein 7.9 g/dL (6.4-8.2) Albumin 4.0 g/dL (3.4-5.0) Albumin/Globulin Ratio 1.0 (1.0-1.7) Glucose (Fingerstick) 284 mg/dL (70-99) 291 mg/dL (70-99) Test 01/17/17 08:09 White Blood Count 6.0 x10^3/uL (4.0-11.0) Red Blood Count 4.28 x10^6/uL (3.50-5.40) Hemoglobin 12.7 g/dL (12.0-15.5) Hematocrit 37.3 % (36.0-47.0) Mean Corpuscular Volume 87 fL (79-100) Mean Corpuscular Hemoglobin 30 pg (25-35) Mean Corpuscular Hemoglobin Concent 34 g/dL (31-37) Red Cell Distribution Width 12.3 % (11.5-14.5) Platelet Count 232 x10^3/uL (140-400) Heparin Anti-Xa Act, Unfractionated 0.32 IU/mL (0.30-0.70) Troponin I Quantitative < 0.017 ng/mL (0.000-0.055) Laboratory Tests Test 01/16/17 18:15 01/16/17 21:04 01/17/17 02:00 01/17/17 07:12 White Blood Count 8.2 x10^3/uL (4.0-11.0) Red Blood Count 4.46 x10^6/uL (3.50-5.40) Hemoglobin 13.4 g/dL (12.0-15.5) Hematocrit 38.5 % (36.0-47.0) Mean Corpuscular Volume 86 fL (79-100) Mean Corpuscular Hemoglobin 30 pg (25-35) Mean Corpuscular Hemoglobin Concent 35 g/dL (31-37) Red Cell Distribution Width 12.4 % (11.5-14.5) Platelet Count 323 x10^3/uL (140-400) Neutrophils (%) (Auto) 57 % (31-73) Lymphocytes (%) (Auto) 32 % (24-48) Monocytes (%) (Auto) 8 % (0-9) Eosinophils (%) (Auto) 2 % (0-3) Basophils (%) (Auto) 1 % (0-3) Neutrophils # (Auto) 4.7 x10^3uL (1.8-7.7) Lymphocytes # (Auto) 2.6 x10^3/uL (1.0-4.8) Monocytes # (Auto) 0.6 x10^3/uL (0.0-1.1) Eosinophils # (Auto) 0.2 x10^3/uL (0.0-0.7) Basophils # (Auto) 0.1 x10^3/uL (0.0-0.2) Prothrombin Time 13.6 SEC (11.7-14.0) Prothromb Time International Ratio 1.1 (0.8-1.1) Activated Partial Thromboplast Time 27 SEC (24-38) Sodium Level 136 mmol/L (136-145) Potassium Level 3.6 mmol/L (3.5-5.1) Chloride Level 97 mmol/L (98-107) Carbon Dioxide Level 26 mmol/L (21-32) Anion Gap 13 (6-14) Blood Urea Nitrogen 21 mg/dL (7-20) Creatinine 1.1 mg/dL (0.6-1.0) Estimated GFR (Cockcroft-Gault) 51.0 BUN/Creatinine Ratio 19 (6-20) Glucose Level 364 mg/dL (70-99) Calcium Level 9.5 mg/dL (8.5-10.1) Total Bilirubin 0.3 mg/dL (0.2-1.0) Aspartate Amino Transf (AST/SGOT) 8 U/L (15-37) Alanine Aminotransferase (ALT/SGPT) 19 U/L (14-59) Alkaline Phosphatase 90 U/L (46-116) Troponin I Quantitative < 0.017 ng/mL (0.000-0.055) < 0.017 ng/mL (0.000-0.055) OK-Nda-H-Type Natriuretic Peptide 120 pg/mL (0-124) Total Protein 7.9 g/dL (6.4-8.2) Albumin 4.0 g/dL (3.4-5.0) Albumin/Globulin Ratio 1.0 (1.0-1.7) Glucose (Fingerstick) 284 mg/dL (70-99) 291 mg/dL (70-99) Test 01/17/17 08:09 White Blood Count 6.0 x10^3/uL (4.0-11.0) Red Blood Count 4.28 x10^6/uL (3.50-5.40) Hemoglobin 12.7 g/dL (12.0-15.5) Hematocrit 37.3 % (36.0-47.0) Mean Corpuscular Volume 87 fL (79-100) Mean Corpuscular Hemoglobin 30 pg (25-35) Mean Corpuscular Hemoglobin Concent 34 g/dL (31-37) Red Cell Distribution Width 12.3 % (11.5-14.5) Platelet Count 232 x10^3/uL (140-400) Heparin Anti-Xa Act, Unfractionated 0.32 IU/mL (0.30-0.70) Troponin I Quantitative < 0.017 ng/mL (0.000-0.055) Medications Current Medications Aspirin ([employer] Aspirin) 325 mg 1X ONCE PO Last administered on 01/16/17 18:24 ; Start 01/16/17 at 18:30; Stop 01/16/17 at 18:31; Status DC Nitroglycerin (Nitrostat) 0.4 mg PRN Q5MIN PRN SL CHEST PAIN Last administered on 01/16/17 19:20; Start 01/16/17 at 18:30 Heparin Sodium (Porcine) (Heparin Sodium) 4,000 unit 1X ONCE IV Last administered on 01/16/17 21:56; Start 01/16/17 at 20:15; Stop 01/16/17 at 20:16 ; Status DC Heparin Sodium/ Dextrose 500 ml @ 0 mls/hr CONT PRN IV SEE I/O RECORD Last administered on 01/16/17 21:57; Start 01/16/17 at 20:15 Heparin Sodium (Porcine) (Heparin Sodium) 1,800 unit PRN Q6HRS PRN IV FOR UFH LEVEL LESS THAN 0.2; Start 01/16/17 at 20:15 Ondansetron HCl (Zofran) 4 mg PRN Q8HRS PRN IV NAUSEA/VOMITING; Start 01/16/17 at 20:15; Stop 01/17/17 at 20:14 Morphine Sulfate 2 mg PRN Q2HR PRN IV PAIN; Start 01/16/17 at 20:15; Stop 01/17 at 20:14 Acetaminophen (Tylenol) 650 mg PRN Q4HRS PRN PO FEVER; Start 01/16/17 at 20:15 ; Stop 01/17/17 at 20:14 Nitroglycerin (Nitrostat) 0.4 mg PRN Q5MIN PRN SL CHEST PAIN; Start 01/16/17 at 20:15; Stop 01/17/17 at 20:14 Albuterol/ Ipratropium (Duoneb) 3 ml RTQID NEB Last administered on 01/17/17 07:30; Start 01/16/17 at 20:30; Stop 01/18/17 at 20:29 Insulin Aspart (NovoLOG) 0-7 UNITS TIDWMEALS SQ Last administered on 01/17/17 08:27; Start 01/16/17 at 21:00 Dextrose (Dextrose 50%-Water Syringe) 12.5 gm PRN Q15MIN PRN IV SEE COMMENTS; Start 01/16/17 at 21:00 Alprazolam (Xanax) 0.5 mg PRN DAILY PRN PO ANXIETY / AGITATION; Start 01/16/17 at 21:30 Cyclobenzaprine HCl (Flexeril) 10 mg PRN TID PRN PO MUSCLE PAIN; Start at 21:30 Exenatide (Byetta) 5 mcg BID SQ ; Start 01/16/17 at 22:00; Status Cancel Acetaminophen/ Hydrocodone Bitart (Lortab 10/325) 1 tab PRN Q6HRS PRN PO PAIN Last administered on 01/17/17 01:23; Start 01/16/17 at 21:30 Ondansetron HCl (Zofran Odt) 4 mg Q8HRS PO Last administered on 01/16/17 21:59 ; Start 01/16/17 at 22:00 Potassium Chloride (Klor-Con) 10 meq BIDWMEALS PO Last administered on 08:21; Start 01/17/17 at 08:00 Pregabalin (Lyrica) 75 mg TID PO Last administered on 01/17/17 08:21; Start at 22:00 Albuterol Sulfate (Ventolin Neb Soln) 2.5 mg PRN Q4HRS PRN NEB SHORTNESS OF BREATH; Start 01/16/17 at 21:30 Atorvastatin Calcium (Lipitor) 80 mg QHS PO Last administered on 01/16/17 21: 59; Start 01/16/17 at 22:00 Insulin Detemir (Levemir) 36 units QHS SQ Last administered on 01/16/17 21:59 ; Start 01/16/17 at 22:00 Topiramate (Topamax) 50 mg BID PO Last administered on 01/17/17 08:21; Start 01/16/17 at 22:00 Exenatide (Byetta) 5 mcg BID SQ Last administered on 01/17/17 08:21; Start at 22:00 Heparin Sodium/ Dextrose 500 ml @ 0 mls/hr CONT PRN IV SEE I/O RECORD; Start at 22:00 Info (Anti-Coagulation Monitoring By Pharmacy) 1 each PRN DAILY PRN MC SEE COMMENTS Last administered on 01/17/17 08:08; Start 01/17/17 at 08:15 Active Scripts Active Reported Topiramate 50 Mg Tablet 1 Tab PO BID Zofran Odt (Ondansetron) 4 Mg Tab.rapdis 1 Tab SL Q8HRS Amlodipine Besylate 5 Mg Tablet 5 Mg PO DAILY Provera (Medroxyprogesterone Acetate) 2.5 Mg Tablet 1 Tab PO DAILY Proair Hfa Inhaler (Albuterol Sulfate) 8.5 Gm Hfa.aer.ad 2 Puff IH PRN Q4-6HRS Hydrocodone-Apap 10-325 (Hydrocodone Bit/Acetaminophen) 1 Each Tablet 1 Tab PO PRN Q6HRS PRN Byetta (Exenatide) 10 Mcg/0.04 Ml Pen.injctr 5 Mcg SQ BID Xanax (Alprazolam) 0.25 Mg Tablet 2 Tab PO DAILY PRN Cyclobenzaprine Hcl 10 Mg Tablet 10 Mg PO TID PRN Hydroxyzine Hcl 10 Mg Tablet 25 Mg PO DAILY Lantus Solostar (Insulin Glargine,Hum.rec.anlog) 100 Unit/1 Ml Insuln.pen 36 Unit SQ HS Fenofibrate (Fenofibrate,Micronized) 134 Mg Capsule 134 Mg PO DAILY Bupropion Xl (Bupropion Hcl) 300 Mg Tab.er.24h 300 Mg PO DAILY Lipitor (Atorvastatin Calcium) 80 Mg Tablet 80 Mg PO HS Citalopram Hbr (Citalopram Hydrobromide) 40 Mg Tablet 40 Mg PO DAILY Bupropion Xl (Bupropion Hcl) 150 Mg Tab.er.24h 150 Mg PO DAILY Lyrica (Pregabalin) 75 Mg Capsule 75 Mg PO TID Hydrochlorothiazide Tablet (Hydrochlorothiazide) 25 Mg Tablet 25 Mg PO DAILY Potassium Chloride 10 Meq Tablet.er 10 Meq PO BID Premarin (Estrogens, Conjugated) 0.9 Mg Tablet 0.9 Mg PO DAILY Lamotrigine 200 Mg Tablet 200 Mg PO DAILY Omeprazole 40 Mg Capsule.dr 40 Mg PO DAILY Losartan Potassium 100 Mg Tablet 100 Mg PO DAILY Vitals/I & O Vital Sign - Last 24 Hours 01/16/17 01/16/17 01/16/17 01/16/17 18:08 18:26 19:11 19:20 Temp 99.0 99.0 Pulse 104 83 74 75 Resp 13 16 B/P (MAP) 184/82 (116) 184/82 138/64 (88) 138/64 Pulse Ox 99 98 O2 Delivery Room Air Room Air 01/16/17 01/16/17 01/16/17 01/16/17 20:15 20:15 20:15 20:27 Temp 97.7 97.7 97.7 97.7 Pulse 64 64 Resp 20 20 B/P (MAP) 119/43 (68) 119/43 (68) Pulse Ox 97 97 99 O2 Delivery Room Air Room Air Room Air Room Air 01/16/17 01/17/17 01/17/17 01/17/17 23:05 01:23 02:23 03:15 Temp 98.0 97.7 98.0 97.7 Pulse 73 61 Resp 18 18 B/P (MAP) 128/40 (69) 106/48 (67) Pulse Ox 97 97 96 96 O2 Delivery Room Air Room Air Room Air Room Air 01/17/17 01/17/17 07:10 07:32 Temp 97.8 97.8 Pulse 60 Resp 18 B/P (MAP) 123/53 (76) Pulse Ox 97 99 O2 Delivery Room Air Room Air Intake and Output 01/16/17 01/16/17 01/17/17 15:00 23:00 07:00 Intake Total 564 ml Output Total 1050 ml Balance -486 ml BHAVANA TRAN MD Jan 17, 2017 09:04
[2017-01-17] MEDS: hydrOXYzine PAMOATE 25 MG CAPSULE PO SCH (09:22)
[2017-01-17] MEDS: FENOFIBRATE,MICRONIZED 134 MG CAPSULE PO SCH (09:22)
[2017-01-17] MEDS: LOSARTAN POTASSIUM 50 MG TABLET. PO SCH (09:23)
[2017-01-17] MEDS: lamoTRIgine 100 MG TABLET. PO SCH (09:23)
[2017-01-17] MEDS: PANTOPRAZOLE 40 MG TABLET.DR. PO SCH (09:24)
[2017-01-17] MEDS: CITALOPRAM 20 MG TABLET. PO SCH (09:24)
[2017-01-17] MEDS: hydroCHLOROthiazide 25 MG TABLET PO SCH (09:24)
[2017-01-17] MEDS ORDERED: buPROPion XL 150 MG TAB.ER.24H. PO SCH ×2 (09:30→10:00)
--- NOTE | 2017-01-17 09:49 | HP ---
ADMIT DATE: 01/16/2017 CHIEF COMPLAINT: Chest pain. HISTORY OF PRESENT ILLNESS: The patient is a 56-year-old female with a history of coronary artery disease who presented to the Emergency Room with the above complaint. She reports the onset of substernal pain several days previously. She had the onset of significant substernal pain at rest. The pain radiated to her back. There was some shortness of breath associated with it. The pain resolved after a few moments, but she continued to experience intermittent pain for several days. She grew concerned on Monday when the pain persisted and she came to the Emergency Room. Initial evaluation there included a troponin which was within normal limits. Her EKG was without acute ischemic change, but may have shown an increase in inverted T-wave in lateral leads. She was started on a heparin drip and admitted for further treatment. PAST MEDICAL HISTORY: Coronary artery disease, diabetes mellitus type 2, insulin-dependent; hypertension, hyperlipidemia, mood disorder with chronic anxiety and depression, COPD, chronic back pain. PAST SURGICAL HISTORY: Back surgeries, cardiac ablation for treatment of SVT, . ALLERGIES: THE PATIENT IS ALLERGIC TO FENTANYL, IODINE AND LORAZEPAM. HOME MEDICATIONS: Albuterol p.r.n., Xanax 0.25 mg p.r.n., amlodipine 5 mg daily, atorvastatin 80 mg daily, Wellbutrin-XL 450 mg daily, citalopram 40 mg daily, Flexeril 10 mg p.r.n., estrogen 0.9 mg daily, Byetta 5 mcg subq b.i.d., fenofibrate 134 mg daily, hydrochlorothiazide 25 mg daily, hydrocodone 10/325 p.r.n., hydroxyzine p.r.n., Lantus insulin 36 units at bedtime, lamotrigine 200 mg daily, losartan 100 mg daily, Provera 1 tablet daily, omeprazole 40 mg daily, potassium 10 mEq b.i.d., Lyrica 75 mg b.i.d., and topiramate 50 mg b.i.d. The patient also has an intrathecal pump with baclofen, clonidine and bupivacaine. FAMILY HISTORY: Noncontributory. SOCIAL HISTORY: The patient is single. She has a long smoking history, but quit smoking cigarettes years ago. 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 She presently uses marijuana occasionally, but no other drugs. She does not drink alcohol. REVIEW OF SYSTEMS: The patient denies fever or chills. She denies cough or increased shortness of breath. She denies abdominal pain, nausea or vomiting. She denies lower extremity edema. Her blood sugars have been elevated recently. She sees Dr. Chaudhari, an medical screener, for treatment of her diabetes and does not always follow a diabetic diet. Her chronic back pain has been stable with her intrathecal pump and her usual hydrocodone. She has had increased family stress recently with some problems with her nephew. She continues to take care of her grandson during the day and is involved with helping other family members also. The patient feels that these increased stressors could have contributed to the chest pain that she experienced prior to this admission. She sees [facility] and is compliant with her medication. They recently started her on topiramate for help with her mood. PHYSICAL EXAMINATION: GENERAL: The patient is alert and oriented x 3, resting comfortably in bed in no acute distress. HEENT: PERRL, EOMI, sclerae clear. Oropharynx: Mucous membranes moist. NECK: Supple, without lymphadenopathy. CHEST: Breath sounds mildly decreased throughout, but otherwise clear to auscultation. CARDIOVASCULAR: Regular rhythm without murmur. There is no chest wall tenderness to palpation. ABDOMEN: Soft, nontender, normoactive bowel sounds are present. EXTREMITIES: Without edema. ASSESSMENT AND PLAN: 1. Chest pain with history of coronary artery disease. The patient's symptoms improved significantly after 2 doses of sublingual nitroglycerin in the Emergency Room. Her troponin is now negative x 2. She is on heparin drip, awaiting further evaluation per Dr. Marinelli. 2. Diabetes mellitus type 2. The patient reports her blood sugars are elevated at this time. We will increase the Levemir and continue sliding scale and her home medications. 3. Hypertension. This has been stable, continue home medications. 4. Mood disorder with chronic anxiety and depression. Continue home medications. 5. Chronic obstructive pulmonary disease. This is stable. Continue albuterol as needed. 6. Chronic back pain. This is stable. Continue hydrocodone. BHAVANA TRAN MD DR: BRAULIO/eusebio JOB#: [id number] / [id number] HILTON
--- NOTE | 2017-01-17 10:40 | PDOC2 ---
CONSULT Date of Consult Date of Consult DATE: 01/17/17 TIME: 10:33 Reason for Consult Reason for Consult: Chest pain on exertion, SOB Identification/Chief Complaint Chief Complaint Chest pain on Exertion with SOB Problems: History of Present Illness Reason for Visit: Pt began having chest pain yesterday that was brought on by exertion and radiated to her back. The pain was accompanied by shortness of breath, nausea, and diaphoresis. Current Problem List Problem List Problems Medical Problems: (1) Hyperglycemia Status: Acute (2) Unstable angina Status: Acute Current Medications Current Medications Current Medications Aspirin (Martin Aspirin) 325 mg 1X ONCE PO Last administered on 01/16/17 18:24 ; Start 01/16/17 at 18:30; Stop 01/16/17 at 18:31; Status DC Nitroglycerin (Nitrostat) 0.4 mg PRN Q5MIN PRN SL CHEST PAIN Last administered on 01/16/17 19:20; Start 01/16/17 at 18:30 Heparin Sodium (Porcine) (Heparin Sodium) 4,000 unit 1X ONCE IV Last administered on 01/16/17 21:56; Start 01/16/17 at 20:15; Stop 01/16/17 at 20:16 ; Status DC Heparin Sodium/ Dextrose 500 ml @ 0 mls/hr CONT PRN IV SEE I/O RECORD Last administered on 01/16/17 21:57; Start 01/16/17 at 20:15; Stop 01/17/17 at 09:48 ; Status DC Heparin Sodium (Porcine) (Heparin Sodium) 1,800 unit PRN Q6HRS PRN IV FOR UFH LEVEL LESS THAN 0.2; Start 01/16/17 at 20:15 Ondansetron HCl (Zofran) 4 mg PRN Q8HRS PRN IV NAUSEA/VOMITING; Start 01/16/17 at 20:15; Stop 01/17/17 at 20:14 Morphine Sulfate 2 mg PRN Q2HR PRN IV PAIN; Start 01/16/17 at 20:15; Stop 01/17 at 20:14 Acetaminophen (Tylenol) 650 mg PRN Q4HRS PRN PO FEVER; Start 01/16/17 at 20:15 ; Stop 01/17/17 at 20:14 Nitroglycerin (Nitrostat) 0.4 mg PRN Q5MIN PRN SL CHEST PAIN; Start 01/16/17 at 20:15; Stop 01/17/17 at 20:14 Albuterol/ Ipratropium (Duoneb) 3 ml RTQID NEB Last administered on 01/17/17 07:30; Start 01/16/17 at 20:30; Stop 01/18/17 at 20:29 Insulin Aspart (NovoLOG) 0-7 UNITS TIDWMEALS SQ Last administered on 01/17/17 08:27; Start 01/16/17 at 21:00 Dextrose (Dextrose 50%-Water Syringe) 12.5 gm PRN Q15MIN PRN IV SEE COMMENTS; Start 01/16/17 at 21:00 Alprazolam (Xanax) 0.5 mg PRN DAILY PRN PO ANXIETY / AGITATION; Start 01/16/17 at 21:30 Cyclobenzaprine HCl (Flexeril) 10 mg PRN TID PRN PO MUSCLE PAIN; Start at 21:30 Exenatide (Byetta) 5 mcg BID SQ ; Start 01/16/17 at 22:00; Status Cancel Acetaminophen/ Hydrocodone Bitart (Lortab 10/325) 1 tab PRN Q6HRS PRN PO PAIN Last administered on 01/17/17 09:24; Start 01/16/17 at 21:30 Ondansetron HCl (Zofran Odt) 4 mg Q8HRS PO Last administered on 01/16/17 21:59 ; Start 01/16/17 at 22:00 Potassium Chloride (Klor-Con) 10 meq BIDWMEALS PO Last administered on 08:21; Start 01/17/17 at 08:00 Pregabalin (Lyrica) 75 mg TID PO Last administered on 01/17/17 08:21; Start at 22:00 Albuterol Sulfate (Ventolin Neb Soln) 2.5 mg PRN Q4HRS PRN NEB SHORTNESS OF BREATH; Start 01/16/17 at 21:30 Atorvastatin Calcium (Lipitor) 80 mg QHS PO Last administered on 01/16/17 21: 59; Start 01/16/17 at 22:00 Insulin Detemir (Levemir) 36 units QHS SQ Last administered on 01/16/17 21:59 ; Start 01/16/17 at 22:00; Stop 01/17/17 at 09:09; Status DC Topiramate (Topamax) 50 mg BID PO Last administered on 01/17/17 08:21; Start 01/16/17 at 22:00 Exenatide (Byetta) 5 mcg BID SQ Last administered on 01/17/17 08:21; Start at 22:00 Heparin Sodium/ Dextrose 500 ml @ 0 mls/hr CONT PRN IV SEE I/O RECORD; Start at 22:00 Info (Anti-Coagulation Monitoring By Pharmacy) 1 each PRN DAILY PRN MC SEE COMMENTS Last administered on 01/17/17 08:08; Start 01/17/17 at 08:15 Amlodipine Besylate (Norvasc) 5 mg DAILY PO ; Start 01/17/17 at 09:30 Bupropion HCl (Wellbutrin Xl) 150 mg DAILY PO Last administered on 01/17/17 09 :22; Start 01/17/17 at 09:30 Fenofibrate (Lofibra) 134 mg DAILY PO Last administered on 01/17/17 09:22; Start 01/17/17 at 09:30 Hydrochlorothiazide (Hydrodiuril) 25 mg DAILY PO Last administered on 09:24; Start 01/17/17 at 09:30 Hydroxyzine Pamoate (Vistaril) 25 mg DAILY PO Last administered on 01/17/17 09 :22; Start 01/17/17 at 09:15 Medroxyprogesterone Acetate (Provera) 2.5 mg DAILY PO ; Start 01/17/17 at 09:30 Bupropion HCl (Wellbutrin Xl) 300 mg DAILY PO ; Start 01/17/17 at 10:00 Citalopram Hydrobromide (CeleXA) 40 mg DAILY PO Last administered on 01/17/17 09:24; Start 01/17/17 at 10:00 Estrogens Conjugated (Premarin) 0.9 mg DAILY PO ; Start 01/18/17 at 09:30 Lamotrigine (LaMICtal) 200 mg DAILY PO Last administered on 01/17/17 09:23; Start 01/17/17 at 09:30 Losartan Potassium (Cozaar) 100 mg DAILY PO Last administered on 01/17/17 09: 23; Start 01/17/17 at 09:30 Pantoprazole Sodium (Protonix) 40 mg DAILYAC PO Last administered on 01/17/17 09:24; Start 01/17/17 at 09:30 Insulin Detemir (Levemir) 45 units QHS SQ ; Start 01/17/17 at 21:00 Active Scripts Active Reported Topiramate 50 Mg Tablet 1 Tab PO BID Zofran Odt (Ondansetron) 4 Mg Tab.rapdis 1 Tab SL Q8HRS Amlodipine Besylate 5 Mg Tablet 5 Mg PO DAILY Provera (Medroxyprogesterone Acetate) 2.5 Mg Tablet 1 Tab PO DAILY Proair Hfa Inhaler (Albuterol Sulfate) 8.5 Gm Hfa.aer.ad 2 Puff IH PRN Q4-6HRS Hydrocodone-Apap 10-325 (Hydrocodone Bit/Acetaminophen) 1 Each Tablet 1 Tab PO PRN Q6HRS PRN Byetta (Exenatide) 10 Mcg/0.04 Ml Pen.injctr 5 Mcg SQ BID Xanax (Alprazolam) 0.25 Mg Tablet 2 Tab PO DAILY PRN Cyclobenzaprine Hcl 10 Mg Tablet 10 Mg PO TID PRN Hydroxyzine Hcl 10 Mg Tablet 25 Mg PO DAILY Lantus Solostar (Insulin Glargine,Hum.rec.anlog) 100 Unit/1 Ml Insuln.pen 36 Unit SQ HS Fenofibrate (Fenofibrate,Micronized) 134 Mg Capsule 134 Mg PO DAILY Bupropion Xl (Bupropion Hcl) 300 Mg Tab.er.24h 300 Mg PO DAILY Lipitor (Atorvastatin Calcium) 80 Mg Tablet 80 Mg PO HS Citalopram Hbr (Citalopram Hydrobromide) 40 Mg Tablet 40 Mg PO DAILY Bupropion Xl (Bupropion Hcl) 150 Mg Tab.er.24h 150 Mg PO DAILY Lyrica (Pregabalin) 75 Mg Capsule 75 Mg PO TID Hydrochlorothiazide Tablet (Hydrochlorothiazide) 25 Mg Tablet 25 Mg PO DAILY Potassium Chloride 10 Meq Tablet.er 10 Meq PO BID Premarin (Estrogens, Conjugated) 0.9 Mg Tablet 0.9 Mg PO DAILY Lamotrigine 200 Mg Tablet 200 Mg PO DAILY Omeprazole 40 Mg Capsule.dr 40 Mg PO DAILY Losartan Potassium 100 Mg Tablet 100 Mg PO DAILY Allergies Allergies: Coded Allergies: fentanyl (Verified Allergy, Severe, Anaphylaxis, 01/16/15) iodine (Verified Allergy, Intermediate, 01/16/15) lorazepam (Verified Allergy, Intermediate, CRAZY FEELINGS, 01/16/15) ROS Review of System Pt states that she is still having a little chest pain this morning but her breathing is much easier. Physical Exam Physical Exam Gen: pt resting in bed. Pt pleasant, cooperative and conversational. No acute distress or pain Neck: no JVD Card: no new heart sounds Resp: clear to auscultation Neuro: pt awake, alert and oriented Extremities: warm to touch. No edema. Vitals VITALS Vital Signs Date Time Temp Pulse Resp B/P (MAP) Pulse Ox O2 Delivery O2 Flow Rate FiO2 01/17/17 09:24 99 Room Air 01/17/17 09:23 75 123/53 01/17/17 07:10 97.8 18 97.8 Labs Labs Laboratory Tests Test 01/16/17 18:15 01/16/17 21:04 01/17/17 02:00 01/17/17 07:12 White Blood Count 8.2 x10^3/uL (4.0-11.0) Red Blood Count 4.46 x10^6/uL (3.50-5.40) Hemoglobin 13.4 g/dL (12.0-15.5) Hematocrit 38.5 % (36.0-47.0) Mean Corpuscular Volume 86 fL (79-100) Mean Corpuscular Hemoglobin 30 pg (25-35) Mean Corpuscular Hemoglobin Concent 35 g/dL (31-37) Red Cell Distribution Width 12.4 % (11.5-14.5) Platelet Count 323 x10^3/uL (140-400) Neutrophils (%) (Auto) 57 % (31-73) Lymphocytes (%) (Auto) 32 % (24-48) Monocytes (%) (Auto) 8 % (0-9) Eosinophils (%) (Auto) 2 % (0-3) Basophils (%) (Auto) 1 % (0-3) Neutrophils # (Auto) 4.7 x10^3uL (1.8-7.7) Lymphocytes # (Auto) 2.6 x10^3/uL (1.0-4.8) Monocytes # (Auto) 0.6 x10^3/uL (0.0-1.1) Eosinophils # (Auto) 0.2 x10^3/uL (0.0-0.7) Basophils # (Auto) 0.1 x10^3/uL (0.0-0.2) Prothrombin Time 13.6 SEC (11.7-14.0) Prothromb Time International Ratio 1.1 (0.8-1.1) Activated Partial Thromboplast Time 27 SEC (24-38) Sodium Level 136 mmol/L (136-145) Potassium Level 3.6 mmol/L (3.5-5.1) Chloride Level 97 mmol/L (98-107) Carbon Dioxide Level 26 mmol/L (21-32) Anion Gap 13 (6-14) Blood Urea Nitrogen 21 mg/dL (7-20) Creatinine 1.1 mg/dL (0.6-1.0) Estimated GFR (Cockcroft-Gault) 51.0 BUN/Creatinine Ratio 19 (6-20) Glucose Level 364 mg/dL (70-99) Calcium Level 9.5 mg/dL (8.5-10.1) Total Bilirubin 0.3 mg/dL (0.2-1.0) Aspartate Amino Transf (AST/SGOT) 8 U/L (15-37) Alanine Aminotransferase (ALT/SGPT) 19 U/L (14-59) Alkaline Phosphatase 90 U/L (46-116) Troponin I Quantitative < 0.017 ng/mL (0.000-0.055) < 0.017 ng/mL (0.000-0.055) IW-Xjm-J-Type Natriuretic Peptide 120 pg/mL (0-124) Total Protein 7.9 g/dL (6.4-8.2) Albumin 4.0 g/dL (3.4-5.0) Albumin/Globulin Ratio 1.0 (1.0-1.7) Glucose (Fingerstick) 284 mg/dL (70-99) 291 mg/dL (70-99) Test 01/17/17 08:09 White Blood Count 6.0 x10^3/uL (4.0-11.0) Red Blood Count 4.28 x10^6/uL (3.50-5.40) Hemoglobin 12.7 g/dL (12.0-15.5) Hematocrit 37.3 % (36.0-47.0) Mean Corpuscular Volume 87 fL (79-100) Mean Corpuscular Hemoglobin 30 pg (25-35) Mean Corpuscular Hemoglobin Concent 34 g/dL (31-37) Red Cell Distribution Width 12.3 % (11.5-14.5) Platelet Count 232 x10^3/uL (140-400) Heparin Anti-Xa Act, Unfractionated 0.32 IU/mL (0.30-0.70) Troponin I Quantitative < 0.017 ng/mL (0.000-0.055) Laboratory Tests Test 01/16/17 18:15 01/16/17 21:04 01/17/17 02:00 01/17/17 07:12 White Blood Count 8.2 x10^3/uL (4.0-11.0) Red Blood Count 4.46 x10^6/uL (3.50-5.40) Hemoglobin 13.4 g/dL (12.0-15.5) Hematocrit 38.5 % (36.0-47.0) Mean Corpuscular Volume 86 fL (79-100) Mean Corpuscular Hemoglobin 30 pg (25-35) Mean Corpuscular Hemoglobin Concent 35 g/dL (31-37) Red Cell Distribution Width 12.4 % (11.5-14.5) Platelet Count 323 x10^3/uL (140-400) Neutrophils (%) (Auto) 57 % (31-73) Lymphocytes (%) (Auto) 32 % (24-48) Monocytes (%) (Auto) 8 % (0-9) Eosinophils (%) (Auto) 2 % (0-3) Basophils (%) (Auto) 1 % (0-3) Neutrophils # (Auto) 4.7 x10^3uL (1.8-7.7) Lymphocytes # (Auto) 2.6 x10^3/uL (1.0-4.8) Monocytes # (Auto) 0.6 x10^3/uL (0.0-1.1) Eosinophils # (Auto) 0.2 x10^3/uL (0.0-0.7) Basophils # (Auto) 0.1 x10^3/uL (0.0-0.2) Prothrombin Time 13.6 SEC (11.7-14.0) Prothromb Time International Ratio 1.1 (0.8-1.1) Activated Partial Thromboplast Time 27 SEC (24-38) Sodium Level 136 mmol/L (136-145) Potassium Level 3.6 mmol/L (3.5-5.1) Chloride Level 97 mmol/L (98-107) Carbon Dioxide Level 26 mmol/L (21-32) Anion Gap 13 (6-14) Blood Urea Nitrogen 21 mg/dL (7-20) Creatinine 1.1 mg/dL (0.6-1.0) Estimated GFR (Cockcroft-Gault) 51.0 BUN/Creatinine Ratio 19 (6-20) Glucose Level 364 mg/dL (70-99) Calcium Level 9.5 mg/dL (8.5-10.1) Total Bilirubin 0.3 mg/dL (0.2-1.0) Aspartate Amino Transf (AST/SGOT) 8 U/L (15-37) Alanine Aminotransferase (ALT/SGPT) 19 U/L (14-59) Alkaline Phosphatase 90 U/L (46-116) Troponin I Quantitative < 0.017 ng/mL (0.000-0.055) < 0.017 ng/mL (0.000-0.055) BN-Wis-R-Type Natriuretic Peptide 120 pg/mL (0-124) Total Protein 7.9 g/dL (6.4-8.2) Albumin 4.0 g/dL (3.4-5.0) Albumin/Globulin Ratio 1.0 (1.0-1.7) Glucose (Fingerstick) 284 mg/dL (70-99) 291 mg/dL (70-99) Test 01/17/17 08:09 White Blood Count 6.0 x10^3/uL (4.0-11.0) Red Blood Count 4.28 x10^6/uL (3.50-5.40) Hemoglobin 12.7 g/dL (12.0-15.5) Hematocrit 37.3 % (36.0-47.0) Mean Corpuscular Volume 87 fL (79-100) Mean Corpuscular Hemoglobin 30 pg (25-35) Mean Corpuscular Hemoglobin Concent 34 g/dL (31-37) Red Cell Distribution Width 12.3 % (11.5-14.5) Platelet Count 232 x10^3/uL (140-400) Heparin Anti-Xa Act, Unfractionated 0.32 IU/mL (0.30-0.70) Troponin I Quantitative < 0.017 ng/mL (0.000-0.055) Assessment/Plan Assessment/Plan Pt having chest pain similar to her roosevelt angina. No rise in troponin. EKG shows accentuation of the ST depression. I discussed the situation and options with the pt and she wants to proceed with a heart cath. Will set up the procedure for AM. Thank you for asking me to participate in the care of this pt. ESTELLA LAWTON MD Jan 17, 2017 10:40
[2017-01-17 11:00] VITALS: BP 110/42
--- NOTE | 2017-01-17 13:00 | EKG ---
[facility] [address] [place] [address] Test Date: 2017-01-16 Test Time: 18:11:40 Pat Name: MAT FALK Department: Room: 210 1 Gender: F Motion Picture Operator: : 1960 Requested By: ANTONIO BEGUM Order Number: [id number] Reading MD: Amanda Young Measurements Intervals [place] Rate: 87 P: 11 MS: 158 QRS: 43 QRSD: 98 T: -8 QT: 352 QTc: 424 Interpretive Statements SINUS RHYTHM LEFT ATRIAL ABNORMALITY QRS(T) CONTOUR ABNORMALITY CONSIDER INFERIOR MYOCARDIAL DAMAGE ST & T ABNORMALITY, CONSIDER ANTEROLATERAL ISCHEMIA ABNORMAL ECG Electronically Signed On 01-18-2017 20:25:22 CDT by Amanda Young
--- NOTE | 2017-01-17 14:46 | RAD ---
Carotid Doppler 01/17/2017 at 1259 hours Indication: Chest pain Comparison: None available Technique: Sonographic imaging of the neck vessels performed utilizing grayscale, color Doppler and spectral waveform analysis. Findings: Right carotid: No significant calcified or noncalcified atherosclerotic plaque. Peak systolic velocity: Middle common carotid artery 121 cm/s Proximal internal carotid artery: 71 cm/s Mid internal carotid artery: 83 cm/s Distal internal carotid artery: 107 cm/s External carotid artery: 209 cm/s End-diastolic velocity: Middle common carotid artery 13 cm/s Proximal internal carotid artery: 20 cm/s Mid internal carotid artery: 21 cm/s Distal internal carotid artery: 23 cm/s Mid ICA/ECA ratio: 0.88 Antegrade flow is identified within the vertebral artery. No subclavian stenosis. Left carotid: No significant calcified or noncalcified atherosclerotic plaque. Peak systolic velocity: Middle common carotid artery 119 cm/s Proximal internal carotid artery: 107 cm/s Mid internal carotid artery: 109 cm/s Distal internal carotid artery: 104 cm/s External carotid artery: 221 cm/s End- diastolic velocity: Middle common carotid artery 18 cm/s Proximal internal carotid artery: 19 cm/s Mid internal carotid artery: 29 cm/s Distal internal carotid artery: 29 cm/s Mid ICA/ECA ratio: 0.92 Antegrade flow is identified in the vertebral artery. No subclavian stenosis. Impression: 1. Normal appearance of the carotid bifurcations without evidence for carotid stenosis. 2. Antegrade flow is identified in the vertebral arteries.
[2017-01-17 15:00] VITALS: BP 102/36
[2017-01-17] MEDS: amLODIPine BESYLATE 5 MG TABLET PO SCH (15:01)
--- NOTE | 2017-01-17 17:20 | PDOC ---
MODERATE SEDATION ASSESSMENT RISKS/ALTERNATIVES Risks/Alternatives Risks and alternatives of this type of sedation and procedure discussed with: RISK/ALTERNATIVES: Patient H & P ON CHART H & P H & P on chart and reviewed for co-morbid conditions and appropriate labs. H&P ON CHART: Yes STATUS PREG STATUS ASSESSED: Yes MEDS/ALLERGIES REVIEWED Meds/Allergies Reviewed Medications and Allergies including time and route of recently administered narcotics and sedatives. MEDS/ALLERGIES REVIEWED: Yes ASA RATING ASA RATING: II AIRWAY ASSESSMENT Airway Assessment Airway patency, oral function limitations, presence of caps, crowns, dentures, partials, and ability to extend neck assessed. AIRWAY ASSESSMENT: Yes MALLAMPATI SCORE MALLAMPATI SCORE: II PRE-SEDATION ASSESSMENT PRE-SEDATION ASSESSMENT: Yes ESTELLA LAWTON MD Jan 17, 2017 17:20
[2017-01-17 19:35] VITALS: BP 115/40
[2017-01-17] MEDS ORDERED: HEPARIN 25,000UTS/500ML PREMIX 500 ML IV PRN (20:15)
[2017-01-17] MEDS ORDERED: INSULIN DETEMIR 300 UNITS/3 ML INSULN.PEN. SQ SCH (21:00)
[2017-01-17] MEDS: ATORVASTATIN CALCIUM 40 MG TABLET. PO SCH (21:03)
[2017-01-17 23:30] VITALS: BP 113/53
[2017-01-18] VITALS (13 sets, daily range): BP systolic 97–129; BP diastolic 36–70
[2017-01-18] MEDS: ONDANSETRON ODT 4 MG TAB.RAPDIS. PO SCH ×2 (06:00→15:09)
[2017-01-18] MEDS: IPRATRPIUM/ALBUTEROL 0.5/2.5MG 3 ML NEBU. NEB SCH (07:29)
[2017-01-18] MEDS: INSULIN ASPART 300 UNITS/3 ML INSULN.PEN SQ SCH ×6 (07:30→17:52)
[2017-01-18] MEDS: ANTI-COAG MONITOR BY PHARMACY. MC PRN (07:58)
[2017-01-18] MEDS: hydrOXYzine PAMOATE 25 MG CAPSULE PO SCH (09:00)
[2017-01-18] MEDS: LOSARTAN POTASSIUM 50 MG TABLET. PO SCH (09:00)
[2017-01-18] MEDS ORDERED: buPROPion XL 150 MG TAB.ER.24H. PO SCH (09:00)
[2017-01-18] MEDS: hydroCHLOROthiazide 25 MG TABLET PO SCH (09:00)
[2017-01-18] MEDS: amLODIPine BESYLATE 5 MG TABLET PO SCH (09:00)
[2017-01-18] MEDS ORDERED: IPRATRPIUM/ALBUTEROL 0.5/2.5MG 3 ML NEBU. NEB PRN (09:15)
--- NOTE | 2017-01-18 09:18 | PDOC ---
PROGRESS NOTES Subjective Subjective Patient reports one brief episode of chest pain at rest yesterday, relieved with NTG x1. Otherwise feels fine. Objective Objective Vital Signs Date Time Temp Pulse Resp B/P (MAP) Pulse Ox O2 Delivery O2 Flow Rate FiO2 01/18/17 07:52 97.9 70 18 117/36 (63) 98 Room Air 97.9 Intake and Output 01/18/17 07:00 Intake Total 1730 ml Output Total 1300 ml Balance 430 ml Intake Oral 1260 ml IV Total 470 ml Output Urine Total 1300 ml Physical Exam Abdomen: Normal bowel sounds, Soft, No tenderness Heart: Regular rate Extremities: No edema General: Alert, Oriented X3, No acute distress Lungs: Other (BS decreased throughout but otherwise CTA) Assessment Assessment Problems Medical Problems: (1) Hyperglycemia Status: Acute (2) Unstable angina Status: Acute Plan Plan of Care 1. Chest pain with hx CAD - stable, to have cardiac cath today per Dr Marinelli. Continue NTG as needed. 2. DM2 - control improved with increased insulins, continue. 3. HTN - controlled, continue home meds. 4. COPD - stable, change Albuterol nebs to prn as patient does not need very often. 5. mood disorder - stable with home meds, continue. 6. chronic back pain - controlled, continue Lester as needed. Comment Review of Relevant I have reviewed the following items johan (where applicable) has been applied. Labs Laboratory Tests Test 01/16/17 18:15 01/16/17 21:04 01/17/17 02:00 01/17/17 07:12 White Blood Count 8.2 x10^3/uL (4.0-11.0) Red Blood Count 4.46 x10^6/uL (3.50-5.40) Hemoglobin 13.4 g/dL (12.0-15.5) Hematocrit 38.5 % (36.0-47.0) Mean Corpuscular Volume 86 fL (79-100) Mean Corpuscular Hemoglobin 30 pg (25-35) Mean Corpuscular Hemoglobin Concent 35 g/dL (31-37) Red Cell Distribution Width 12.4 % (11.5-14.5) Platelet Count 323 x10^3/uL (140-400) Neutrophils (%) (Auto) 57 % (31-73) Lymphocytes (%) (Auto) 32 % (24-48) Monocytes (%) (Auto) 8 % (0-9) Eosinophils (%) (Auto) 2 % (0-3) Basophils (%) (Auto) 1 % (0-3) Neutrophils # (Auto) 4.7 x10^3uL (1.8-7.7) Lymphocytes # (Auto) 2.6 x10^3/uL (1.0-4.8) Monocytes # (Auto) 0.6 x10^3/uL (0.0-1.1) Eosinophils # (Auto) 0.2 x10^3/uL (0.0-0.7) Basophils # (Auto) 0.1 x10^3/uL (0.0-0.2) Prothrombin Time 13.6 SEC (11.7-14.0) Prothromb Time International Ratio 1.1 (0.8-1.1) Activated Partial Thromboplast Time 27 SEC (24-38) Sodium Level 136 mmol/L (136-145) Potassium Level 3.6 mmol/L (3.5-5.1) Chloride Level 97 mmol/L (98-107) Carbon Dioxide Level 26 mmol/L (21-32) Anion Gap 13 (6-14) Blood Urea Nitrogen 21 mg/dL (7-20) Creatinine 1.1 mg/dL (0.6-1.0) Estimated GFR (Cockcroft-Gault) 51.0 BUN/Creatinine Ratio 19 (6-20) Glucose Level 364 mg/dL (70-99) Calcium Level 9.5 mg/dL (8.5-10.1) Total Bilirubin 0.3 mg/dL (0.2-1.0) Aspartate Amino Transf (AST/SGOT) 8 U/L (15-37) Alanine Aminotransferase (ALT/SGPT) 19 U/L (14-59) Alkaline Phosphatase 90 U/L (46-116) Troponin I Quantitative < 0.017 ng/mL (0.000-0.055) < 0.017 ng/mL (0.000-0.055) BI-Ewj-J-Type Natriuretic Peptide 120 pg/mL (0-124) Total Protein 7.9 g/dL (6.4-8.2) Albumin 4.0 g/dL (3.4-5.0) Albumin/Globulin Ratio 1.0 (1.0-1.7) Glucose (Fingerstick) 284 mg/dL (70-99) 291 mg/dL (70-99) Test 01/17/17 08:09 01/17/17 11:35 01/17/17 16:42 01/17/17 20:48 White Blood Count 6.0 x10^3/uL (4.0-11.0) Red Blood Count 4.28 x10^6/uL (3.50-5.40) Hemoglobin 12.7 g/dL (12.0-15.5) Hematocrit 37.3 % (36.0-47.0) Mean Corpuscular Volume 87 fL (79-100) Mean Corpuscular Hemoglobin 30 pg (25-35) Mean Corpuscular Hemoglobin Concent 34 g/dL (31-37) Red Cell Distribution Width 12.3 % (11.5-14.5) Platelet Count 232 x10^3/uL (140-400) Heparin Anti-Xa Act, Unfractionated 0.32 IU/mL (0.30-0.70) Troponin I Quantitative < 0.017 ng/mL (0.000-0.055) Glucose (Fingerstick) 370 mg/dL (70-99) 214 mg/dL (70-99) 112 mg/dL (70-99) Test 01/18/17 05:00 01/18/17 07:14 Heparin Anti-Xa Act, Unfractionated 0.26 IU/mL (0.30-0.70) Glucose (Fingerstick) 231 mg/dL (70-99) Laboratory Tests Test 01/17/17 11:35 01/17/17 16:42 01/17/17 20:48 01/18/17 05:00 Glucose (Fingerstick) 370 mg/dL (70-99) 214 mg/dL (70-99) 112 mg/dL (70-99) Heparin Anti-Xa Act, Unfractionated 0.26 IU/mL (0.30-0.70) Test 01/18/17 07:14 Glucose (Fingerstick) 231 mg/dL (70-99) Medications Current Medications Aspirin (Martin Aspirin) 325 mg 1X ONCE PO Last administered on 01/16/17t 18:24 ; Start 01/16/17 at 18:30; Stop 01/16/17 at 18:31; Status DC Nitroglycerin (Nitrostat) 0.4 mg PRN Q5MIN PRN SL CHEST PAIN Last administered on 01/16/17 19:20; Start 01/16/17 at 18:30 Heparin Sodium (Porcine) (Heparin Sodium) 4,000 unit 1X ONCE IV Last administered on 01/16/17 21:56; Start 01/16/17 at 20:15; Stop 01/16/17 at 20:16 ; Status DC Heparin Sodium/ Dextrose 500 ml @ 0 mls/hr CONT PRN IV SEE I/O RECORD Last administered on 01/16/17 21:57; Start 01/16/17 at 20:15; Stop 01/17/17 at 09:48 ; Status DC Heparin Sodium (Porcine) (Heparin Sodium) 1,800 unit PRN Q6HRS PRN IV FOR UFH LEVEL LESS THAN 0.2; Start 01/16/17 at 20:15; Stop 01/17/17 at 10:38; Status DC Ondansetron HCl (Zofran) 4 mg PRN Q8HRS PRN IV NAUSEA/VOMITING; Start 01/16/17 at 20:15; Stop 01/17/17 at 20:14; Status DC Morphine Sulfate 2 mg PRN Q2HR PRN IV PAIN; Start 01/16/17 at 20:15; Stop 01/17 at 20:14; Status DC Acetaminophen (Tylenol) 650 mg PRN Q4HRS PRN PO FEVER; Start 01/16/17 at 20:15 ; Stop 01/17/17 at 20:14; Status DC Nitroglycerin (Nitrostat) 0.4 mg PRN Q5MIN PRN SL CHEST PAIN; Start 01/16/17 at 20:15; Stop 01/17/17 at 20:14; Status DC Albuterol/ Ipratropium (Duoneb) 3 ml RTQID NEB Last administered on 01/18/17 07:29; Start 01/16/17 at 20:30; Stop 01/18/17 at 20:29 Insulin Aspart (NovoLOG) 0-7 UNITS TIDWMEALS SQ Last administered on 01/18/17 08:54; Start 01/16/17 at 21:00 Dextrose (Dextrose 50%-Water Syringe) 12.5 gm PRN Q15MIN PRN IV SEE COMMENTS; Start 01/16/17 at 21:00 Alprazolam (Xanax) 0.5 mg PRN DAILY PRN PO ANXIETY / AGITATION; Start 01/16/17 at 21:30 Cyclobenzaprine HCl (Flexeril) 10 mg PRN TID PRN PO MUSCLE PAIN Last administered on 01/17/17 12:41; Start 01/16/17 at 21:30 Exenatide (Byetta) 5 mcg BID SQ ; Start 01/16/17 at 22:00; Status Cancel Acetaminophen/ Hydrocodone Bitart (Lortab 10/325) 1 tab PRN Q6HRS PRN PO PAIN Last administered on 01/17/17 15:08; Start 01/16/17 at 21:30 Ondansetron HCl (Zofran Odt) 4 mg Q8HRS PO Last administered on 01/17/17 15:01 ; Start 01/16/17 at 22:00 Potassium Chloride (Klor-Con) 10 meq BIDWMEALS PO Last administered on 17:53; Start 01/17/17 at 08:00 Pregabalin (Lyrica) 75 mg TID PO Last administered on 01/17/17 21:03; Start at 22:00 Albuterol Sulfate (Ventolin Neb Soln) 2.5 mg PRN Q4HRS PRN NEB SHORTNESS OF BREATH; Start 01/16/17 at 21:30 Atorvastatin Calcium (Lipitor) 80 mg QHS PO Last administered on 01/17/17 21: 03; Start 01/16/17 at 22:00 Insulin Detemir (Levemir) 36 units QHS SQ Last administered on 01/16/17 21:59 ; Start 01/16/17 at 22:00; Stop 01/17/17 at 09:09; Status DC Topiramate (Topamax) 50 mg BID PO Last administered on 01/17/17 21:03; Start 01/16/17 at 22:00 Exenatide (Byetta) 5 mcg BID SQ Last administered on 01/17/17 21:06; Start at 22:00 Heparin Sodium/ Dextrose 500 ml @ 0 mls/hr CONT PRN IV SEE I/O RECORD; Start at 22:00; Status Cancel Info (Anti-Coagulation Monitoring By Pharmacy) 1 each PRN DAILY PRN MC SEE COMMENTS Last administered on 01/18/17 07:58; Start 01/17/17 at 08:15 Amlodipine Besylate (Norvasc) 5 mg DAILY PO Last administered on 01/17/17 15: 01; Start 01/17/17 at 09:30 Bupropion HCl (Wellbutrin Xl) 150 mg DAILY PO Last administered on 01/17/17 09 :22; Start 01/17/17 at 09:30; Stop 01/17/17 at 12:54; Status DC Fenofibrate (Lofibra) 134 mg DAILY PO Last administered on 01/17/17 09:22; Start 01/17/17 at 09:30 Hydrochlorothiazide (Hydrodiuril) 25 mg DAILY PO Last administered on 09:24; Start 01/17/17 at 09:30 Hydroxyzine Pamoate (Vistaril) 25 mg DAILY PO Last administered on 01/17/17 09 :22; Start 01/17/17 at 09:15 Medroxyprogesterone Acetate (Provera) 2.5 mg DAILY PO Last administered on 01/17 15:01; Start 01/17/17 at 09:30 Bupropion HCl (Wellbutrin Xl) 300 mg DAILY PO Last administered on 01/17/17 11 :28; Start 01/17/17 at 10:00; Stop 01/17/17 at 12:54; Status DC Citalopram Hydrobromide (CeleXA) 40 mg DAILY PO Last administered on 01/17/17 09:24; Start 01/17/17 at 10:00 Estrogens Conjugated (Premarin) 0.9 mg DAILY PO ; Start 01/18/17 at 09:30 Lamotrigine (LaMICtal) 200 mg DAILY PO Last administered on 01/17/17 09:23; Start 01/17/17 at 09:30 Losartan Potassium (Cozaar) 100 mg DAILY PO Last administered on 01/17/17 09: 23; Start 01/17/17 at 09:30 Pantoprazole Sodium (Protonix) 40 mg DAILYAC PO Last administered on 01/17/17 09:24; Start 01/17/17 at 09:30 Insulin Detemir (Levemir) 45 units QHS SQ Last administered on 01/17/17 21:05 ; Start 01/17/17 at 21:00 Bupropion HCl (Wellbutrin Xl) 450 mg DAILY PO ; Start 01/18/17 at 09:00 Insulin Aspart (NovoLOG) 10 units TIDAC SQ Last administered on 01/17/17 17:55 ; Start 01/17/17 at 16:30 Heparin Sodium/ Dextrose 500 ml @ 0 mls/hr CONT PRN IV SEE I/O RECORD Last administered on 01/17/17 21:05; Start 01/17/17 at 20:15 Active Scripts Active Reported Topiramate 50 Mg Tablet 1 Tab PO BID Zofran Odt (Ondansetron) 4 Mg Tab.rapdis 1 Tab SL Q8HRS Amlodipine Besylate 5 Mg Tablet 5 Mg PO DAILY Provera (Medroxyprogesterone Acetate) 2.5 Mg Tablet 1 Tab PO DAILY Proair Hfa Inhaler (Albuterol Sulfate) 8.5 Gm Hfa.aer.ad 2 Puff IH PRN Q4-6HRS Hydrocodone-Apap 10-325 (Hydrocodone Bit/Acetaminophen) 1 Each Tablet 1 Tab PO PRN Q6HRS PRN Byetta (Exenatide) 10 Mcg/0.04 Ml Pen.injctr 5 Mcg SQ BID Xanax (Alprazolam) 0.25 Mg Tablet 2 Tab PO DAILY PRN Cyclobenzaprine Hcl 10 Mg Tablet 10 Mg PO TID PRN Hydroxyzine Hcl 10 Mg Tablet 25 Mg PO DAILY Lantus Solostar (Insulin Glargine,Hum.rec.anlog) 100 Unit/1 Ml Insuln.pen 36 Unit SQ HS Fenofibrate (Fenofibrate,Micronized) 134 Mg Capsule 134 Mg PO DAILY Bupropion Xl (Bupropion Hcl) 300 Mg Tab.er.24h 300 Mg PO DAILY Lipitor (Atorvastatin Calcium) 80 Mg Tablet 80 Mg PO HS Citalopram Hbr (Citalopram Hydrobromide) 40 Mg Tablet 40 Mg PO DAILY Bupropion Xl (Bupropion Hcl) 150 Mg Tab.er.24h 150 Mg PO DAILY Lyrica (Pregabalin) 75 Mg Capsule 75 Mg PO TID Hydrochlorothiazide Tablet (Hydrochlorothiazide) 25 Mg Tablet 25 Mg PO DAILY Potassium Chloride 10 Meq Tablet.er 10 Meq PO BID Premarin (Estrogens, Conjugated) 0.9 Mg Tablet 0.9 Mg PO DAILY Lamotrigine 200 Mg Tablet 200 Mg PO DAILY Omeprazole 40 Mg Capsule.dr 40 Mg PO DAILY Losartan Potassium 100 Mg Tablet 100 Mg PO DAILY Vitals/I & O Vital Sign - Last 24 Hours 01/17/17 01/17/17 01/17/17 01/17/17 09:23 09:24 11:00 11:47 Temp 98.0 98.0 Pulse 75 67 Resp 20 B/P (MAP) 123/53 110/42 (64) Pulse Ox 99 97 O2 Delivery Room Air Room Air Room Air 01/17/17 01/17/17 01/17/17 01/17/17 15:00 15:01 15:08 15:31 Temp 98.2 98.2 Pulse 74 71 Resp 18 18 B/P (MAP) 102/36 (58) 110/42 Pulse Ox 96 97 O2 Delivery Room Air Room Air Room Air 01/17/17 01/17/17 01/17/17 01/17/17 16:08 19:07 19:35 20:00 Temp 97.7 97.7 Pulse 76 Resp 18 16 B/P (MAP) 115/40 (65) Pulse Ox 97 98 96 O2 Delivery Room Air Room Air Room Air Room Air 01/17/17 01/18/17 01/18/17 01/18/17 23:30 03:05 07:30 07:52 Temp 97.9 97.6 97.9 97.9 97.6 97.9 Pulse 69 65 70 Resp 18 17 18 B/P (MAP) 113/53 (73) 117/48 (71) 117/36 (63) Pulse Ox 98 97 98 O2 Delivery Room Air Room Air Room Air Room Air Intake and Output 01/17/17 01/17/17 01/18/17 15:00 23:00 07:00 Intake Total 360 ml 700 ml 670 ml Output Total 300 ml 400 ml 600 ml Balance 60 ml 300 ml 70 ml BHAVANA TRAN MD Jan 18, 2017 09:18
[2017-01-18] MEDS ORDERED: ESTROGENS, CONJUGATED 0.3 MG TABLET PO SCH (09:30)
[2017-01-18] MEDS ORDERED: IOHEXOL 300 MG/ML 100ML VIAL. ONE (10:24)
[2017-01-18] MEDS ORDERED: LIDOCAINE 2% 20 ML VIAL. ONE (10:24)
[2017-01-18] MEDS ORDERED: FAMOTIDINE 20 MG/2 ML VIAL ONE (10:34)
[2017-01-18] MEDS ORDERED: diphenhydrAMINE 50 MG/ML VIAL ONE (10:34)
[2017-01-18] MEDS ORDERED: MIDAZOLAM HCL/PF 2 MG/2 ML VIAL. ONE (10:34)
[2017-01-18] MEDS ORDERED: HYDROCORTISONE SOD SUCC/PF 100 MG/2 ML VIAL. ONE (10:34)
[2017-01-18] MEDS ORDERED: fentaNYL PF VIAL 100 MCG/2 ML VIAL ONE (10:35)
[2017-01-18] MEDS ORDERED: IOHEXOL 300 MG/ML 100ML VIAL. IART ONE (11:00)
[2017-01-18] MEDS ORDERED: CONTRAST GIVEN MC PRN (11:00)
[2017-01-18] MEDS ORDERED: MIDAZOLAM HCL/PF 2 MG/2 ML VIAL. IV ONE (11:00)
[2017-01-18] MEDS ORDERED: LIDOCAINE 2% 20 ML VIAL. IJ ONE (11:00)
[2017-01-18] MEDS ORDERED: 0.9 % SODIUM CHLORIDE 10 ML DISP.SYRIN. IV PRN (11:15)
[2017-01-18] MEDS ORDERED: FAMOTIDINE 20 MG/2 ML VIAL IVP ONE (11:15)
[2017-01-18] MEDS ORDERED: HYDROCORTISONE SOD SUCC/PF 100 MG/2 ML VIAL. IV ONE (11:15)
[2017-01-18] MEDS ORDERED: diphenhydrAMINE 50 MG/ML VIAL IVP ONE (11:15)
[2017-01-18] MEDS: lamoTRIgine 100 MG TABLET. PO SCH (12:37)
[2017-01-18] MEDS: PANTOPRAZOLE 40 MG TABLET.DR. PO SCH (12:37)
[2017-01-18] MEDS: PREGABALIN 75 MG CAPSULE PO SCH ×2 (12:38→14:00)
[2017-01-18] MEDS: POTASSIUM CHLORIDE 10 MEQ TABLET.ER. PO SCH ×2 (12:38→17:47)
[2017-01-18] MEDS: FENOFIBRATE,MICRONIZED 134 MG CAPSULE PO SCH (12:38)
[2017-01-18] MEDS: CITALOPRAM 20 MG TABLET. PO SCH (12:38)
[2017-01-18] MEDS: EXENATIDE 5 MCG/0.02 ML SQ SCH (12:39)
[2017-01-18] MEDS: TOPIRAMATE 25 MG TABLET. PO SCH (12:39)
--- NOTE | 2017-01-18 14:56 | EKG ---
[facility] [address] [place] [address] Test Date: 2017-01-17 Test Time: 14:21:20 Pat Name: MAT FALK Department: Room: 210 1 Gender: F Business Services Intern: VALENCIA : 1960 Requested By: BHAVANA TRAN Order Number: [id number] Reading MD: Amanda Young Measurements Intervals [place] Rate: 69 P: 37 NE: 178 QRS: 36 QRSD: 96 T: 43 QT: 418 QTc: 449 Interpretive Statements SINUS RHYTHM NO SPECIFIC ECG ABNORMALITIES Electronically Signed On 01-18-2017 20:39:03 CDT by Amanda Young
[2017-01-18] MEDS ORDERED: NITR0.4T SL (15:09)
[2017-01-18] MEDS ORDERED: ASPI-630 PO (15:51)
[2017-01-18] MEDS: NITROGLYCERIN SUBLINGUAL 0.4 MG BOTTLE OF 25. SL PRN (16:58)
--- NOTE | 2017-01-18 21:01 | CARD ---
APPROVED REPORT Procedure(s) performed: Sedation Time: 28 min HISTORY The patient is a 56 year-old female with a history of : chronic lung disease, tobacco history() , hyp ertension. INDICATION The indication(s) include : unstable angina , chest pain, dyspnea. CASE TECHNIQUE The patient was brought electively into the cardiac catheterization lab. A timeout was performed conf irming the patient's name, date of , procedure, and site of procedure. All necessary parties wer e wearing the appropriate personal protective equipment and radiation monitoring devices. After expla ining the risks and benefits of the procedure, informed consent was obtained.(See nursing notes for m edications administered). The right groin was sterilely prepped and draped. The right femoral groin w as infiltrated with 2% Lidocaine subcutaneous anesthesia. During this case, Fluoroscopy and low osmol ar contrast were used for imaging. A sheath was inserted into the right femoral artery without diffic ulty. Coronary angiography was performed using coronary diagnostic catheters. The left coronary syste m was accessed and visualized with a Diagnostic catheter. The right coronary system was accessed and visualized with a Diagnostic catheter. The left ventricle was accessed and visualized with a Diagnost ic catheter. Left ventricular/Aortic Valve gradient assessed on pullback. Left ventriculogram was per formed in MAKI projection. Pre-demployment femoral angiogram was performed . Closure device was deploy ed with a Angioseal without any complications. The patient tolerated the procedure well and there wer e no complications associated with the procedure. Coronary Angiography The patient's coronary anatomy is left dominant. The left main coronary artery is a large size vessel free of disease. The left main bifurcates to the left anterior descending and circumflex. The left anterior descending artery is a large size vessel free of disease. The first diagonal branch is a small size vessel free of disease. The second diagonal branch is a small size vessel free of di sease. The third diagonal branch is a small size vessel free of disease. The circumflex artery is a large size vessel free of disease. The first obtuse marginal branch is a m edium size vessel free of disease. The second obtuse marginal branch is a small size vessel free of d isease. The third obtuse marginal branch is a small size vessel free of disease. The left posterior d escending artery is a medium size vessel free of disease. The right coronary artery is a small size vessel free of disease. Left Ventriculography The left ventricle is normal in size with normal contractility. The left ventricular ejection fractio n is estimated to be 65%. The left ventricular end diastolic pressure is 12 mmHg. There was no gradie nt across the aortic valve upon pullback. Conclusion This pt has no significant CAD. I doubt that her pain is angina. It may be coming from her back problems or GERD. Recommendations Medical Therapy
--- NOTE | 2017-01-19 10:04 | DS ---
DATE OF DISCHARGE: 01/18/2017 CHIEF COMPLAINT: Chest pain. HISTORY OF PRESENT ILLNESS: The patient is a 56-year-old female with a history of previous CT who presented to the Emergency Room with the above complaint. She reported the onset of substernal chest pain several days previously. She had the onset of pain while at rest. The pain radiated to her back and there was some shortness of breath associated with it. The pain resolved after a few moments, but she continued to experience intermittent pain for several days. She grew concerned on the day of admission and came to the Emergency Room. Initial evaluation there included troponin which was within normal limits. Her EKG was without acute ischemic change, but may have shown an increase in inverted T-waves in the lateral leads. She was started on a heparin drip and admitted for further treatment. HOSPITAL COURSE: The patient was admitted and placed on telemetry where she remained in sinus rhythm. A second troponin was also within normal limits. She was seen in consultation by Dr. Marinelli who is her usual dormitory maid. She was maintained on a heparin drip until undergoing cardiac catheterization on 01/18/2017. She continued to have mild intermittent chest pains during her hospital stay, but not as severe as what she had experienced prior to admission. The cardiac catheterization was basically within normal limits and showed no significant coronary artery disease. The patient's previous CT had been while she was abusing methamphetamine. Dr. Marinelli felt that her present chest pain is of noncardiac origin. The patient has multiple chronic medical conditions including insulin-dependent diabetes, hypertension, COPD, chronic mood disorder and chronic back pain. These conditions were all stable with her usual medications. The patient felt better and was discharged home after recovery from her cardiac catheterization. FINAL DIAGNOSES: 1. Musculoskeletal chest pain. 2. Diabetes mellitus type 2, insulin-dependent. 3. Hypertension. 4. Chronic obstructive pulmonary disease. 5. Mood disorder. 6. Hyperlipidemia. 7. Chronic back pain. DISCHARGE MEDICATIONS: Nitroglycerin 0.4 mg sublingual p.r.n., albuterol p.r.n., alprazolam 0.25 mg p.r.n., amlodipine 5 mg daily, aspirin 81 mg daily, atorvastatin 80 mg at bedtime, bupropion XL 150 mg with 300 mg daily, citalopram 40 mg daily, Flexeril p.r.n., Premarin 0.9 mg daily, Byetta 5 mcg subq b.i.d., fenofibrate 134 mg daily, hydrochlorothiazide 25 mg daily, hydrocodone 10/325 p.r.n., hydroxyzine p.r.n., Lantus insulin 36 units at bedtime, lamotrigine 200 mg daily, losartan 100 mg daily, Provera 2.5 mg daily, omeprazole 40 mg daily, potassium 10 mEq b.i.d., Lyrica 75 mg b.i.d., topiramate 50 mg b.i.d. Follow up with Dr. Marinelli as advised. Follow up with Dr. Campbell as needed. Follow up with her usual psychiatrist. BHAVANA CAMPBELL MD DR: BRAULIO/nts JOB#: [id number] / [id number]
== END 2017-01-18 20:40 | disposition home or self-care (01) | DRG 287 ==
LOC: ER 18:05 → 2 NORTH 19:30
PROVIDERS: ADMIT Family Medicine; ATTEND Family Medicine
PROC: 4A023N7 Measurement of Cardiac Sampling and Pressure, Left Heart, Percutaneous Approach (ICD-10-PCS; principal; 2017-01-18)
PROC: B2111ZZ Fluoroscopy of Multiple Coronary Arteries using Low Osmolar Contrast (ICD-10-PCS; 2017-01-18)
PROC: B2151ZZ Fluoroscopy of Left Heart using Low Osmolar Contrast (ICD-10-PCS; 2017-01-18)
DX: I25.110 Atherosclerotic heart disease of native coronary artery with unstable angina pectoris (principal); E11.65 Type 2 diabetes mellitus with hyperglycemia; I10 Essential (primary) hypertension; E78.5 Hyperlipidemia, unspecified; F12.90 Cannabis use, unspecified, uncomplicated; F32.9 Major depressive disorder, single episode, unspecified; F41.9 Anxiety disorder, unspecified; G89.29 Other chronic pain; J44.9 Chronic obstructive pulmonary disease, unspecified; Z79.4 Long term (current) use of insulin; Z87.891 Personal history of nicotine dependence; Z88.8 Allergy status to other drugs, medicaments and biological substances
CPT/HCPCS: 36415; 71010; 80053; 82962; 83880; 84484; 85025; 85027; 85520; 85610; 85730; 93005; 93458; 93880; 94640; C1769; C1771; C1892; G0269; J1200; J1644; J1720; J1815; J2250; J7620; Q0162; Q0177; Q9967; S0028; 99291-25; J2001

== ENCOUNTER → 2017-02-16 | Outpatient (CLI) | payer OTHER ==
[2017-01-18 19:40] VITALS: BP 129/58
[~2017-02-16] MED LIST changes: +AMLO5TAB2 PO; +ASPI-630 PO; +MEDR2.5T PO; +NITR0.4T SL; +NITR0.4T22 SL; +ONDA4TAB10 SL; +RANO500T2 PO; +TOPI50TA8 PO
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
== END | disposition home or self-care (01) ==
LOC: PNCL 09:35
PROVIDERS: ATTEND Anesthesiology
DX: G89.4 Chronic pain syndrome (principal); G54.5 Neuralgic amyotrophy
CPT/HCPCS: 99212

== ENCOUNTER → 2017-03-01 | Outpatient (CLI) | payer OTHER ==
[2017-01-18 19:40] VITALS: BP 129/58
[~2017-03-01] MED LIST changes: -NAPR500T3 PO; +NAPR500T4 PO; +OXYMETAZOLINE 0.05% NASAL SPRAY 30ML BOTTLE. NS ONE; +SUMA100T3 PO
--- NOTE | 2017-03-04 17:42 | SLEEP ---
DATE OF STUDY: 03/01/2017 SLEEP STUDY ATTENDING PHYSICIAN: Dr. Campbell. The patient is 56 years old who weighs 158 pounds with a BMI of 24. The patient had sleep study 5 years ago at another facility and was positive for TEETEE. She was not wearing CPAP. The patient lost 60 pounds and was here to be reevaluated. This was a split night study. During the night study, the patient spent 458 minutes in bed and slept for 400 minutes with a sleep efficiency of 87%. Sleep latency was 10 minutes with an absent REM sleep. Overall, sleep architecture showed increased stage I and stage II sleep, reduced slow wave and absent REM sleep. During the initial diagnostic portion of the study, the patient slept for 137 minutes. During that time, there were 14 obstructive apneas, 15 mixed apneas and no central apneas. There were 40 hypopneas. The patient's apnea-hypopnea index was 30 per hour, supine index 37 per hour. No REM sleep was seen. EKG monitoring revealed normal sinus rhythm, average heart rate was 60 beats per minute. No sustained arrhythmias were observed. Review of nocturnal oximetry study revealed a mean oxygen saturation of 98% with the lowest of 82%. Only 1.6% of time oxygen saturation remained less than 90%. PLMS were seen at the index of 4 per hour and 1 per hour caused EEG arousals. The patient met the criteria for CPAP initiation. It was started at 5 cm water and titrated up to 20 cm of water. At the final pressure, the patient did achieve therapeutic pressure. The patient slept for 20 minutes. The patient had supine sleep, but no REM sleep observed. AHI was reduced to 2 per hour and oxygen saturation remained above 97%. The patient used small sized nasal pillows. IMPRESSION: 1. Severe sleep apnea-hypopnea syndrome with an apnea-hypopnea index of 30 per hour. 2. No clinically significant nocturnal hypoxia. 3. No clinically significant periodic limb movements during sleep. RECOMMENDATIONS: 1. CPAP at 20 cm of water completely eliminated the patient's sleep apnea and should be used on a nightly basis. 2. Follow up in 4-6 weeks to assess compliance with CPAP and to document clinical improvement. 3. Avoid ST[employer] CONSULT[employer] depressants. 4. Caution regarding driving until symptoms of sleep apnea have resolved with the use of CPAP. 5. The patient to use small sized nasal pillows. FESTUS DWYER MD DR: PEPE/eusebio JOB#: [id number] / [id number] BHAVANA Jha MD
== END | disposition home or self-care (01) ==
LOC: SLPLAB 18:29
PROVIDERS: ATTEND Family Medicine
DX: G47.33 Obstructive sleep apnea (adult) (pediatric) (principal)
CPT/HCPCS: 95810

== ENCOUNTER → 2017-03-13 | Outpatient (CLI) | payer OTHER ==
[2017-01-18 19:40] VITALS: BP 129/58
[~2017-03-13] MED LIST changes: +BACLOFEN IT ONE; +BUPIVACAINE MPF 0.75% 30 ML VIAL. ONE; -OXYMETAZOLINE 0.05% NASAL SPRAY 30ML BOTTLE. NS ONE; +[UNRECOGNIZED DRUG - OTHER] IT ONE; +cloNIDine PF 5,000 MCG/10 ML VIAL EP ONE
--- NOTE | 2017-03-13 13:12 | PAIN ---
DATE OF SERVICE: 03/13/2017 DIAGNOSES: 1. Chronic pain syndrome. 2. Post-lumbar laminectomy syndrome with intrathecal pump therapy. HISTORY OF PRESENT ILLNESS: The patient is a 56-year-old female who returns for followup status post intrathecal pump therapy and for refill of her intrathecal pump today. The patient reports she is doing better. We had increased her dose slightly on her last visit, 01/03/2017, and she is reporting better pain control now, still some aching, dull pain is constant across the low back and the bilateral hips as previously, but much improved. The patient reports it is a 9 on a scale of 10 at its worse, 7 on average, is a 4 on a scale of 10 today. The patient reports she is still having some difficulty sleeping because of the pain, it awakens her from sleep about every 4 hours. She can reposition or take some pain medication to get back to sleep. The patient reports no new motor or sensory deficits, no new changes, worse with walking and standing, changing positions, again aching, dull and becoming somewhat constant, but again well controlled by about 75% to 80% with the intrathecal pump. The patient reports no new motor or sensory deficits, no new bowel or bladder incontinence or other complaints. PHYSICAL EXAMINATION: VITAL SIGNS: The patient's blood pressure is 188/58, pulse 65, respirations 18, temperature 97.9 degrees Fahrenheit. Height is 5 feet 8 inches, weight 156 pounds. GENERAL: The patient is awake, alert, oriented, appropriate, very pleasant demeanor. HEENT: Head shows normocephalic, atraumatic. Extraocular movements are intact, symmetrical. Oral cavity, mucous membranes are moist and pink. Dentition is intact. NECK: Shows anterior throat supple without palpable lymphadenopathy noted. Swallow reflex is symmetrical. CHEST: Shows normal on inspection. Breath sounds are clear to auscultation bilaterally. HEART: Shows S1 and S2 clear. No murmurs auscultated. ABDOMEN: Soft, nontender, nondistended. No palpable organomegaly. No rebound or guarding demonstrated. Easily palpable intrathecal pump is noted in the right lower quadrant, which is mobile, but nontender. Well-healed surgical scar over this area. BACK: The patient's back shows spine grossly in midline. Some mild tenderness to palpation in the lumbar paraspinous musculature diffusely bilaterally without tenderness over the spinous processes, sacrum or sacroiliac regions. The patient shows good rotation and motion of the lumbar spine both laterally as well as extension and flexion. EXTREMITIES: Lower extremities show deep tendon reflexes 1+ in the patellar and tendo calcaneus tendons are equal. Motor exam is strong with dorsiflexion, extension, quadriceps and hamstring flexion rated at 5/5. Peripheral pulses are 1+ posterior tibia. No peripheral edema is noted. Options were discussed with the patient. The patient's old chart was reviewed as well as her current medication regimen and updated. Current review of systems updated today as well. We will proceed with refill of the patient's intrathecal pump with fluoroscopic guidance under sterile prep and drape. A 4 mL of old medication was removed and 40 mL of new medication replaced, bupivacaine, clonidine and baclofen as documented on the patient's intrathecal pump printout. The patient will be returning for pump refill on 05/10/2017 or prior. The patient was encouraged to increase activity as tolerated, was given instruction as well as side effects to be aware with the medications and will follow up as scheduled. DIAGNOSIS: Chronic pain syndrome with post-lumbar laminectomy syndrome. PROCEDURE: Intrathecal pump refill and reprogramming and PTM reprogramming under fluoroscopic guidance. Under sterile prep and drape, using a 22-gauge non-cutting Plix kit needle accessed without difficulty and under direct visualization with fluoroscopy, 4 mL of old medication was withdrawn and discarded and 40 mL of the new medication containing bupivacaine, clonidine and baclofen was then replaced as documented on the patient's flowsheet. Needle was withdrawn. Sterile bandage applied. The patient's condition at discharge is stable. The patient tolerated the procedure well, had no complications. ALLISON LYNNE MD DR: MARSHAL/eusebio JOB#: [id number] / [id number]
== END | disposition home or self-care (01) ==
LOC: PNCL 02-20 18:35
PROVIDERS: ATTEND Anesthesiology
DX: G89.4 Chronic pain syndrome (principal); M96.1 Postlaminectomy syndrome, not elsewhere classified; I11.0 Hypertensive heart disease with heart failure; I50.9 Heart failure, unspecified; E78.00 Pure hypercholesterolemia, unspecified; J44.9 Chronic obstructive pulmonary disease, unspecified; M19.91 Primary osteoarthritis, unspecified site; E11.9 Type 2 diabetes mellitus without complications; F41.9 Anxiety disorder, unspecified; F32.9 Major depressive disorder, single episode, unspecified; F17.200 Nicotine dependence, unspecified, uncomplicated; D64.9 Anemia, unspecified; Z86.69 Personal history of other diseases of the nervous system and sense organs; Z87.39 Personal history of other diseases of the musculoskeletal system and connective tissue; Z88.8 Allergy status to other drugs, medicaments and biological substances; Z88.4 Allergy status to anesthetic agent; Z91.041 Radiographic dye allergy status
CPT/HCPCS: 62370; J0475; J0735; J3490; 95991

== ENCOUNTER → 2017-05-16 | Outpatient (CLI) | payer OTHER ==
[2017-01-18 19:40] VITALS: BP 129/58
[~2017-05-16] MED LIST changes: -LAMO200T PO; +LAMO200T2 PO
--- NOTE | 2017-05-16 11:25 | PAIN ---
DATE OF SERVICE: 05/16/2017 DIAGNOSES: 1. Chronic pain syndrome. 2. Post-lumbar laminectomy syndrome with intrathecal pump therapy. HISTORY OF PRESENT ILLNESS: The patient is a 56-year-old female who returns for followup status post medication management with intrathecal pump of clonidine, baclofen and bupivacaine. The patient reports she has been doing fairly well, still having some increased pain in her left hip greater than the right and across her low back, she had previously. The patient reports her pain is 7 on a scale of 10 at its worst, 5 on average, 4 at its least, is a 5 today. The patient reports aching, dull, cramping, becoming more constant, more noticeable, worse with walking, standing, changing positions, better with sitting or lying down, does not awaken her from sleep at night. The patient reports no motor or sensory deficits, no new bowel or bladder incontinence, but some increased pain on the left side, again more noticeable with walking and standing. The patient reports no new motor or sensory deficits, no new bowel or bladder incontinence or other complaints and good tolerance with intrathecal pump and no difficulties or pain in the abdomen with it. PHYSICAL EXAMINATION: VITAL SIGNS: Today, the patient's blood pressure 168/88, pulse 77, respirations 18, temperature 97.9 degrees Fahrenheit. Height is 5 feet 8 inches, weighs 146 pounds. GENERAL: The patient is awake, alert, oriented, appropriate, very pleasant demeanor. HEENT: Head shows normocephalic, atraumatic. Extraocular movements intact, symmetrical. Oral cavity, mucous membranes are moist and pink. Dentition intact. NECK: Shows anterior throat supple without palpable lymphadenopathy noted. Swallow reflex symmetrical. CHEST: Shows normal on inspection. Breath sounds are clear to auscultation bilaterally. HEART: Shows S1, S2 clear. ABDOMEN: Soft, nontender, nondistended. No palpable organomegaly is noted. No rebound or guarding demonstrated. Easily palpable intrathecal pump is noted in the right lower quadrant with well-healed surgical scar over the pump without tenderness with palpation. BACK: The patient's back shows spine grossly midline. Lumbar paraspinous musculature is symmetrical. Well-healed surgical scars noted in the lumbar distribution, moderate tenderness with palpation in the low lumbar distribution only diffusely without trigger points, without radiation. The patient has good rotational motion both laterally as well as extension and flexion without difficulty. EXTREMITIES: Lower extremities show deep tendon reflexes 1+ in the patellar and tendo calcaneus tendons. NEUROLOGIC: Motor exam is strong with 5/5 dorsiflexion, extension, quadriceps and hamstring flexion. Peripheral pulses are 1+ posterior tibial. No peripheral edema is noted bilaterally. Options were discussed with the patient. The patient's old chart was reviewed as her current medication regimen updated. Current review of systems updated today as well, and we will proceed with refill and reprogramming of intrathecal pump as well as PTM parameters. Risks were discussed including but not limited to bleeding, infection, possibility of extravasation of medication and possible overdose with resuscitative measures necessary as well as poor results regarding pain control. The patient understands and wished to proceed. The patient will return to clinic in approximately 8 weeks, scheduled for refill at maximum use by 07/13. We will monitor this with her PTM and schedule for her to come in prior to this as necessary. The patient was counseled to increase activity level as tolerated. We will maintain stretching and strengthening exercises with her left hip and low back as well. DIAGNOSES: Chronic pain syndrome with post-lumbar laminectomy syndrome. PROCEDURE: Intrathecal pump refill and reprogramming with PTM reprogramming under sterile prep and drape using a 22-gauge noncutting [employer] kit needle. Pump was entered without difficulty, aspirated 4 mL of old medication which was discarded. 40 mL of new medication containing bupivacaine, clonidine and baclofen was then replaced into the pump without difficulty. Needle was withdrawn. Sterile bandage was applied. Pump was then reprogrammed. PTM was reprogrammed as well for rate, reservoir volume and alarm date and alarm reservoir. The patient tolerated procedure well, had no complications. The patient will return to clinic again prior to 07/13. ALLISON LYNNE MD DR: MARSHAL/eusebio JOB#: [id number] / [id number]
== END | disposition home or self-care (01) ==
LOC: PNCL 07:58
PROVIDERS: ATTEND Anesthesiology
DX: G89.4 Chronic pain syndrome (principal); M96.1 Postlaminectomy syndrome, not elsewhere classified; I11.0 Hypertensive heart disease with heart failure; I50.9 Heart failure, unspecified; K21.9 Gastro-esophageal reflux disease without esophagitis; J44.9 Chronic obstructive pulmonary disease, unspecified; E78.00 Pure hypercholesterolemia, unspecified; F41.9 Anxiety disorder, unspecified; F32.9 Major depressive disorder, single episode, unspecified; F17.200 Nicotine dependence, unspecified, uncomplicated; E66.9 Obesity, unspecified; Z88.4 Allergy status to anesthetic agent; Z86.69 Personal history of other diseases of the nervous system and sense organs; Z87.39 Personal history of other diseases of the musculoskeletal system and connective tissue; Z91.041 Radiographic dye allergy status; Z86.39 Personal history of other endocrine, nutritional and metabolic disease
CPT/HCPCS: 62370; 95991

== ENCOUNTER → 2017-07-17 | Outpatient (CLI) | payer OTHER ==
[~2017-07-17] MED LIST changes: -ALBU25PO2 MC; -ALPR0.25 PO; -AMIT75TA PO; -AMLO5TAB2 PO; -ASPI-630 PO; +BACLOFEN IT; -BACLOFEN IT ONE; +BUPIVACAINE MPF 0.75% 30 ML VIAL.; -BUPIVACAINE MPF 0.75% 30 ML VIAL. ONE; -BUPR150T6 PO; -BUPR300T4 PO; -CITA40TA5 PO; -CLON0.5T3 PO; -CYCL10TA2 PO; -ESTR0.9T PO; -EXEN10PE3 SQ; -FENO134C PO; -HYDR-2766 PO; -HYDR10TA2 PO; -HYDR25TA9 PO; -INSU100I13 SQ; -LAMO200T2 PO; -LIDO700A4 TP; -LIPITOR80 MG PO; -LOSA100T6 PO; -LOVA20TA2 PO; -MEDR2.5T PO; -MEDR2.5T28 PO; -METF-620 PO; -NAPR500T4 PO; -NITR0.4T SL; -NITR0.4T22 SL; -OMEP40CA5 PO; -ONDA4TAB10 SL; -POTA10TA12 PO; -PREG75CA PO; -PROAIR HFA8.5 GM IH; -RANO500T2 PO; -SUMA100T3 PO; -TOPI50TA8 PO; -[UNRECOGNIZED DRUG - OTHER]; +[UNRECOGNIZED DRUG - OTHER] IT; -[UNRECOGNIZED DRUG - OTHER] IT ONE; +cloNIDine PF 5,000 MCG/10 ML VIAL EP; -cloNIDine PF 5,000 MCG/10 ML VIAL EP ONE; -humalog
== END | disposition home or self-care (01) ==
LOC: PNCL 09:13
DX: G89.4 Chronic pain syndrome (principal); M96.1 Postlaminectomy syndrome, not elsewhere classified; E78.00 Pure hypercholesterolemia, unspecified; I10 Essential (primary) hypertension; E66.9 Obesity, unspecified; J44.9 Chronic obstructive pulmonary disease, unspecified; K21.9 Gastro-esophageal reflux disease without esophagitis; E11.9 Type 2 diabetes mellitus without complications; F41.9 Anxiety disorder, unspecified; F32.9 Major depressive disorder, single episode, unspecified; F17.200 Nicotine dependence, unspecified, uncomplicated; D64.9 Anemia, unspecified; M19.90 Unspecified osteoarthritis, unspecified site; Z86.69 Personal history of other diseases of the nervous system and sense organs; Z86.39 Personal history of other endocrine, nutritional and metabolic disease; Z88.8 Allergy status to other drugs, medicaments and biological substances; Z91.041 Radiographic dye allergy status
CPT/HCPCS: 62370; 95991; J0475; J0735; J3490

== ENCOUNTER → 2017-09-19 | Outpatient (CLI) | payer OTHER | LOC: PNCL 12:41 | DX: G89.4 Chronic pain syndrome (principal); M96.1 Postlaminectomy syndrome, not elsewhere classified | CPT/HCPCS: 95991 ==

== ENCOUNTER → 2017-11-20 | Outpatient (CLI) | payer OTHER | END | disposition home or self-care (01) | LOC: PNCL 08:12 | DX: G89.4 Chronic pain syndrome (principal); M96.1 Postlaminectomy syndrome, not elsewhere classified; Z88.5 Allergy status to narcotic agent; Z88.8 Allergy status to other drugs, medicaments and biological substances; I11.0 Hypertensive heart disease with heart failure; I50.9 Heart failure, unspecified; E78.00 Pure hypercholesterolemia, unspecified; J43.9 Emphysema, unspecified; E66.9 Obesity, unspecified; K21.9 Gastro-esophageal reflux disease without esophagitis; M17.0 Bilateral primary osteoarthritis of knee; M16.0 Bilateral primary osteoarthritis of hip; E11.9 Type 2 diabetes mellitus without complications; F31.9 Bipolar disorder, unspecified; F41.0 Panic disorder [episodic paroxysmal anxiety]; F17.200 Nicotine dependence, unspecified, uncomplicated; D64.9 Anemia, unspecified; Z82.49 Family history of ischemic heart disease and other diseases of the circulatory system; Z83.3 Family history of diabetes mellitus; Z83.49 Family history of other endocrine, nutritional and metabolic diseases; Z82.3 Family history of stroke; Z79.84 Long term (current) use of oral hypoglycemic drugs | CPT/HCPCS: 95991; J0475; J0735; J3490 ==

== ENCOUNTER → 2018-01-19 | Outpatient (CLI) | payer OTHER ==
[2017-01-18 19:40] VITALS: BP 129/58
[~2018-01-19] MED LIST changes: +ALBU25PO2 MC; +ALPR0.25 PO; +AMIT75TA PO; +AMLO5TAB2 PO; +ASPI-630 PO; -BACLOFEN IT; +BACLOFEN IT ONE; -BUPIVACAINE MPF 0.75% 30 ML VIAL.; +BUPIVACAINE MPF 0.75% 30 ML VIAL. ONE; +BUPR150T6 PO; +BUPR300T4 PO; +CITA40TA5 PO; +CLON0.5T11 PO; +CYCL10TA2 PO; +DULA1.5P SQ; +ESTR0.9T PO; +EXEN10PE3 SQ; +FENO134C PO; +HYDR-2766 PO; +HYDR10TA2 PO; +HYDR25TA9 PO; +INSU100I13 SQ; +LAMO200T2 PO; +LIDO700A4 TP; +LIPITOR80 MG PO; +LOSA100T6 PO; +LOVA20TA2 PO; +MEDR2.5T PO; +MEDR2.5T28 PO; +METF10003 PO; +NAPR-514 PO; +NITR0.4T SL; +NITR0.4T22 SL; +OMEP40CA5 PO; +ONDA4TAB10 SL; +POTA10TA12 PO; +PREG75CA PO; +PROAIR HFA8.5 GM IH; +RANO500T2 PO; +SUMA100T3 PO; +TOPI50TA8 PO; +[UNRECOGNIZED DRUG - OTHER]; -[UNRECOGNIZED DRUG - OTHER] IT; +[UNRECOGNIZED DRUG - OTHER] IT ONE; -cloNIDine PF 5,000 MCG/10 ML VIAL EP; +cloNIDine PF 5,000 MCG/10 ML VIAL EP ONE; +humalog
--- NOTE | 2018-01-19 20:28 | PAIN ---
DATE OF SERVICE: 01/19/2018 PROGRESS NOTE FOR PAIN CLINIC DIAGNOSES: 1. Chronic pain syndrome. 2. Post-lumbar laminectomy syndrome with intrathecal pump therapy. HISTORY OF PRESENT ILLNESS: The patient is a 57-year-old female who returns for followup status post intrathecal pump therapy, has been doing fairly well with this. The patient reports she is feeling a bit under the weather today, but otherwise is doing fairly well with overall about a 75% improvement or so with the intrathecal pump without side effects from medication. The patient has bupivacaine plus baclofen and clonidine in the pump running currently. The patient reports no side effects with this, has been using her PTM, has been using it more recently. She is having increased pain in her legs, more on the right than the left, but present bilaterally. The patient reports the pain is a 10 on a scale of 10 at its worst, 8 on average and 6 at its least and is an 8 today. The patient reports no new motor or sensory deficits, no new changes. Again, no side effects with the medication. The patient reports it does awaken her from sleep at night. The pain in her legs and some in the low back as well as a cramping pain is aching, tight, becoming more constant with activity and radiating but when she rests, the pain is better most times. The patient reports no new changes. PHYSICAL EXAMINATION: VITAL SIGNS: The patient's blood pressure 166/87, pulse 81, respirations are 20, temperature 98.0 degrees Fahrenheit, weight 154 pounds. GENERAL: The patient is awake, alert, oriented, appropriate, very pleasant demeanor. HEENT: Head shows normocephalic, atraumatic. Extraocular movements are intact and symmetrical. Oral cavity: Mucous membranes are moist and pink. Dentition is intact. NECK: Shows anterior throat supple without palpable lymphadenopathy noted. Swallow reflex is symmetrical. CHEST: Shows normal on inspection. Breath sounds are clear to auscultation bilaterally. HEART: Shows S1, S2 clear. No murmurs auscultated. ABDOMEN: Obese, but soft, nontender, nondistended. Easily palpable intrathecal pump is noted in the right lower quadrant, which is mobile, but nontender. BACK: Shows spine grossly in the midline. Well healed surgical scars noted in the lumbar distribution with some mild tenderness to palpation just diffusely and without radiation in the lumbar paraspinous musculature inferiorly. Options were discussed with the patient. The patient's old chart was reviewed as her current medication regimen updated. Current review of systems updated today as well. We will refill the patient's intrathecal pump with reprogramming as well as PTM reprogramming. Risks were discussed including but not limited to bleeding, infection, possibility of extravasation of the medication and resuscitative measures if necessary as well as poor results regarding pain control. The patient understands and wished to proceed. The patient will return to the clinic prior to 03/18, which will be her next refill date or sooner if necessary. The patient was counseled as to activity level as well as medication regimen, PTM use and side effects to be aware of. DIAGNOSES: 1. Chronic pain syndrome. 2. Post-lumbar laminectomy syndrome. PROCEDURE: Intrathecal pump refill and reprogramming under sterile prep and drape using local anesthetic. A 22-gauge noncutting [employer] kit needle was used to access the pump under sterile prep and drape without difficulty. Pump was accessed. 6 mL of old medication was withdrawn and discarded. 40 mL of new medication containing bupivacaine, clonidine and baclofen was then replaced in the pump. Needle was removed. Sterile bandage was applied. The patient tolerated the procedure well, had no complications. ALLISON LYNNE MD DR: MARSHAL/nts JOB#: [id number] / [id number]
== END | disposition home or self-care (01) ==
LOC: PNCL 12:08
PROVIDERS: ATTEND Anesthesiology
DX: G89.4 Chronic pain syndrome (principal); M96.1 Postlaminectomy syndrome, not elsewhere classified; Z88.5 Allergy status to narcotic agent; Z88.6 Allergy status to analgesic agent; E78.00 Pure hypercholesterolemia, unspecified; J43.9 Emphysema, unspecified; I11.0 Hypertensive heart disease with heart failure; I50.9 Heart failure, unspecified; G47.30 Sleep apnea, unspecified; E66.9 Obesity, unspecified; K21.9 Gastro-esophageal reflux disease without esophagitis; Z98.890 Other specified postprocedural states; M17.0 Bilateral primary osteoarthritis of knee; M16.0 Bilateral primary osteoarthritis of hip; E11.9 Type 2 diabetes mellitus without complications; F31.9 Bipolar disorder, unspecified; F41.0 Panic disorder [episodic paroxysmal anxiety]; F17.200 Nicotine dependence, unspecified, uncomplicated; F12.90 Cannabis use, unspecified, uncomplicated; Z82.49 Family history of ischemic heart disease and other diseases of the circulatory system; Z83.3 Family history of diabetes mellitus; Z83.49 Family history of other endocrine, nutritional and metabolic diseases; Z82.3 Family history of stroke; Z79.84 Long term (current) use of oral hypoglycemic drugs
CPT/HCPCS: 95991

== ENCOUNTER → 2018-02-22 | Outpatient (CLI) | payer OTHER ==
[2017-01-18 19:40] VITALS: BP 129/58
[~2018-02-22] MED LIST changes: -AMLO5TAB2 PO; +AMLO5TAB7 PO; -BACLOFEN IT ONE; -BUPIVACAINE MPF 0.75% 30 ML VIAL. ONE; -LOSA100T6 PO; +LOSA100T7 PO; -METF10003 PO; +METF10007 PO; -[UNRECOGNIZED DRUG - OTHER] IT ONE; -cloNIDine PF 5,000 MCG/10 ML VIAL EP ONE
--- NOTE | 2018-02-22 13:07 | KCIC ---
MRI Lumbar Spine without contrast History: Right lumbar radiculopathy, low back pain, bilateral hip pain, previous back surgeries Technique: Multiplanar, multi sequential noncontrast MR imaging was performed of the lumbar spine. Contrast: None Comparison: None Findings: There is some motion degradation. There has been posterolateral fusion L3, L4, L5, S1 at which there are bilateral pedicle screws attached to vertical rods. There are also interbody grafts at L3-4 and L4-5. Exam does not accurately evaluate integrity of hardware. Lumbar vertebral body stature is maintained. There is negligible anterior spondylolisthesis L5-S1 and minimal posterior subluxation L2 relative to L3. There is mild disc desiccation L2-3 and L1-L2. Conus terminates at L1. There is minimal edema of the anterior superior corner of L2 probably reactive/degenerative in etiology. There is mild lumbar levoscoliosis. There is some heterogeneous signal of the posterior aspect of the left sacroiliac joint and left iliac bone, possibly related to postsurgical change if corresponding history. There is a small T2 hyperintense lesion of the visualized left kidney about 1.1 cm, statistically likely a cyst. L1-L2: There is negligible posterior bulge. Neural foramina and spinal canal are adequate. L2-L3: There is mild buckling of the ligamentum flavum and right greater than left facet hypertrophic change. There is mild indentation upon the ventral thecal sac by posteriorly subluxed L2 vertebral body margin. Spinal canal is overall adequate. There is mild narrowing of the right neural foramen, left neural foramen adequate. L3-L4: Spinal canal and neural foramina are adequate. L4-L5: Spinal canal and neural foramina are adequate. L5-S1: There has been posterior decompression. Neural foramina and spinal canal are adequate. Impression: 1. There is no significant lumbar spinal stenosis. There is mild narrowing of the right L2-3 neural foramen. There is negligible anterior spondylolisthesis L5-S1 and minimal posterior subluxation L2 relative to L3. There has been posterolateral fusion L3-S1. Electronically signed by: Zaid Rothman MD (02/22/2018 1:03 PM) [facility]
== END | disposition home or self-care (01) ==
LOC: KCIC MRI 12:04
PROVIDERS: ATTEND Family Medicine
DX: M54.16 Radiculopathy, lumbar region (principal); M43.17 Spondylolisthesis, lumbosacral region; M48.061 Spinal stenosis, lumbar region without neurogenic claudication
CPT/HCPCS: 72148

== ENCOUNTER → 2018-03-19 | Outpatient (CLI) | payer OTHER ==
[2017-01-18 19:40] VITALS: BP 129/58
[~2018-03-19] MED LIST changes: +LOSA25TA5 PO
--- NOTE | 2018-03-20 00:39 | PAIN ---
DATE OF SERVICE: 03/19/2018 DIAGNOSES: 1. Chronic pain syndrome. 2. Post-lumbar laminectomy syndrome with intrathecal pump therapy. HISTORY OF PRESENT ILLNESS: The patient is a 57-year-old female, returns for followup status post intrathecal pump therapy for refill and reprogramming today. The patient reports still doing fairly well with about 75% improvement overall in her pain. She has some increased pain in the low back on the right side over the past several weeks and an MRI scan was ordered from her primary care physician. We went over the results with that today showing only some increased indentation of the ventral thecal sac at L2-L3. Otherwise, L3 through L5-S1 fusion intact without disruption. The patient reports still some pain in the low back as she has had for many years, more on the right side, recently worse with walking, standing, change in positions. The patient reports it is burning, aching, dull, radiating, becoming more severe in the right side in the low back, but again fairly well controlled. She is off her feet, resting, lying down, does not awaken her from sleep often, but can sometimes every 4 hours as it did last night. The patient reports the pain is a 9 on a scale of 10 at its worst, 6 on average, and 5 at its least. Reports no new motor or sensory deficits. No bowel or bladder incontinence. No side effects with her medication and the intrathecal pump. PHYSICAL EXAMINATION: VITAL SIGNS: The patient's blood pressure is 161/81, pulse 87, respirations 18, temperature 98.2 degrees Fahrenheit, height is 5 feet 8 inches, weight 154 pounds. GENERAL: The patient is awake, alert, oriented, appropriate, very pleasant demeanor. HEENT: Shows normocephalic, atraumatic. Extraocular movements are intact and symmetrical. Oral cavity: Mucous membranes moist and pink. Dentition is intact. NECK: Shows anterior throat supple without palpable lymphadenopathy noted. Swallow reflex is symmetrical. CHEST: Shows normal on inspection. Breath sounds clear to auscultation bilaterally. HEART: Shows S1, S2 clear. No murmurs auscultated. ABDOMEN: Soft, nontender, nondistended. Well-healed surgical scar in the right side with easily palpable intrathecal pump on the right lower quadrant, which is mobile and nontender. BACK: The patient's back shows spine grossly in the midline. Well healed surgical scarring noticed in the midline of the lumbar distribution. Paraspinous musculature is symmetrical with moderate tenderness to palpation of right, somewhat greater than left in the low lumbar distribution, but symmetrical without trigger points without atrophy, hypertrophy or radiation. EXTREMITIES: Lower extremities show deep tendon reflexes at 1+ in the patellar and tendo calcaneus tendons are equal. Motor exam is strong with dorsiflexion, extension, quadriceps and hamstring flexion about 4 on a scale of 5, but equal and symmetrical. Peripheral pulses are 1+ posterior tibia. No peripheral edema is noted bilaterally. Options were discussed with the patient. The patient's old chart was reviewed as her current medication regimen updated. Current review of systems is updated today as well. We will proceed with the intrathecal pump refill and reprogramming. Risks were discussed including but not limited to bleeding, infection, possibility of extravasation of medication and resuscitative measures if necessary as well as poor results regarding pain control. PTM will be reprogrammed as well. The patient understands and agrees and will follow up prior to 05/16/2018, which is her next refill date. She will also keep track with the PTM as it was calibrated today as well if the date changes with use. DIAGNOSIS: Chronic pain syndrome with post-lumbar laminectomy syndrome. PROCEDURE: Intrathecal pump refill and reprogramming and PTM reprogramming under sterile prep and drape using local anesthetic. Using 22-gauge noncutting [employer] kit needle, pump was accessed without difficulty. 7 mL of the old medication was withdrawn and discarded. 40 mL of the new medication containing bupivacaine, baclofen and clonidine as noted were replaced. Needle was withdrawn. Sterile bandage was applied. Pump was then reprogrammed for volume settings as well as PTM settings. Again, the patient will return prior to 05/16/2018 for pump refill or sooner if necessary. ALLISON LYNNE MD DR: MARSHAL/eusebio JOB#: [id number] / [id number]
== END | disposition home or self-care (01) ==
LOC: PNCL 08:43
PROVIDERS: ATTEND Anesthesiology
DX: M96.1 Postlaminectomy syndrome, not elsewhere classified (principal); G89.4 Chronic pain syndrome; Z88.6 Allergy status to analgesic agent; Z88.8 Allergy status to other drugs, medicaments and biological substances
CPT/HCPCS: 95991

== ENCOUNTER → 2018-05-21 | Outpatient (CLI) | payer OTHER ==
[2017-01-18 19:40] VITALS: BP 129/58
[~2018-05-21] MED LIST changes: +ALBU2.5V8 IH; +BACLOFEN IT ONE; +BUPIVACAINE MPF 0.75% 30 ML VIAL. ONE; +HYDR-2145 PO; -HYDR-2766 PO; +HYDR-2769 PO; -HYDR25TA9 PO; +LIDOCAINE/PRILOCAINE TOPICAL CREAM 5GM TUBE. TP ONE; +LOSA100T14 PO; -LOSA100T7 PO; -LOSA25TA5 PO; +LOSA25TA54 PO; -PROAIR HFA8.5 GM IH; +[UNRECOGNIZED DRUG - OTHER] IT ONE; +cloNIDine PF 5,000 MCG/10 ML VIAL EP ONE
--- NOTE | 2018-05-21 11:09 | PAIN ---
DATE OF SERVICE: 05/21/2018 PROGRESS NOTE FOR PAIN CLINIC DIAGNOSES: 1. Chronic pain syndrome. 2. Post-lumbar laminectomy syndrome with intrathecal pump therapy. HISTORY OF PRESENT ILLNESS: The patient is a 57-year-old female who returns for followup status post intrathecal pump therapy for refill and reprogramming of intrathecal pump today. The patient reports she is doing fairly well, has some increased pain lately with some weather changes as we have some colder weather and otherwise doing fairly well. Still some pain across the low back and the bilateral lower extremities, especially her left knee, which is becoming much more painful with walking and standing. The patient does have some history of osteoarthritis in the left knee. The patient reports the pain in the back and legs is aching, dull, tight, cramping, constant, becoming more unbearable at times, worse with walking, standing, changing positions, better with sitting or lying down but awakens her from sleep about every 4 hours or has recently as has her left knee. The patient reports the pain is a 10 on a scale of 10 at its worst, 7 on average, is 5 at its least and is a 7 today. The patient reports no new motor or sensory deficits and no new bowel or bladder incontinence or other complaints. PHYSICAL EXAMINATION: VITAL SIGNS: The patient's blood pressure 149/76, pulse 78, respirations 18 and temperature 98.1 degrees Fahrenheit. Height 5 feet 8 inches and weighs 152 pounds. GENERAL: The patient is awake, alert, oriented, appropriate and very pleasant demeanor. HEENT: Head shows normocephalic and atraumatic. Extraocular movements are intact and symmetrical. Oral cavity: Mucous membranes are moist and pink. Dentition is intact. NECK: Shows anterior throat supple without palpable lymphadenopathy noted. Swallow reflex is symmetrical. CHEST: Shows normal on inspection. Breath sounds clear to auscultation bilaterally. HEART: Shows S1 and S2 clear. No murmurs auscultated. ABDOMEN: Soft, nontender and nondistended. No palpable organomegaly is noted. No rebound or guarding demonstrated. The patient's abdomen once again shows intrathecal pump, which is easily palpable in the right lower quadrant and well-healed surgical scars above the pump and is nontender. BACK: Shows spine grossly in the midline. Normal appearing thoracic kyphosis and some flattening of the lumbar lordotic curvature with well-healed surgical scar there. Lumbar paraspinous musculature shows symmetrical but with palpation shows some moderate tenderness throughout the upper, middle, lower distribution of the paraspinous muscles but only diffusely. The patient shows no radiation of pain and good rotational motion as well as extension and flexion without significant impairment or pain. EXTREMITIES: The patient's lower extremities show deep tendon reflexes 1+ in the patellar and tendo-calcaneus tendons. Motor exam is strong with 5/5 dorsiflexion, extension, quadriceps and hamstring flexion and equal. The patient's left knee does show some tenderness with medial palpation on the medial compartment and medial collateral ligament, only very mildly, worse with weightbearing but good range of motion passively, hinge without ratcheting or crepitus. Peripheral pulses are 1+ posterior tibia. No peripheral edema is noted bilaterally. Options were discussed with the patient. The patient's old chart was reviewed as well as her current medication regimen updated. Current review of systems updated today as well. We will proceed with intrathecal pump refill and reprogramming today as well as PTM reprogramming. Risks were discussed including but not limited to bleeding, infection, possibility of extravasation of medication and resuscitative measures if necessary as well as poor results regarding pain control. The patient understands and wished to proceed. The patient will return to the clinic prior to 07/18/2018 for pump refill scheduled at that time or sooner as necessary. We did discuss potentially treating her left knee and she will think about this. If the pain gets worse, we may do intra-articular injection of the left knee in the meantime. DIAGNOSES: 1. Post-lumbar laminectomy syndrome with intrathecal pump therapy. 2. Chronic pain syndrome. PROCEDURE: Intrathecal pump refill and reprogramming under sterile prep and drape using local anesthetic. Using a 22-gauge noncutting [employer] needle, the pump was entered without difficulty. After topical anesthesia, a 5 mL of old medication was withdrawn without difficulty and 40 mL of new medication containing bupivacaine, clonidine and baclofen was then injected into the pump without difficulty or resistance. The needle was removed. Sterile bandage was applied. The patient tolerated procedure well and had no complications. Pump was then reprogrammed for volume as well as PTM settings. The patient will return to the clinic for pump refill prior to 07/18/2018. ALLISON LYNNE MD DR: Alysha JOB#: [id number] / [id number]
== END | disposition home or self-care (01) ==
LOC: PNCL 08:39
PROVIDERS: ATTEND Anesthesiology
DX: G89.4 Chronic pain syndrome (principal); M96.1 Postlaminectomy syndrome, not elsewhere classified; Z88.6 Allergy status to analgesic agent; Z88.8 Allergy status to other drugs, medicaments and biological substances
CPT/HCPCS: 62370; 95991; J0475; J0735; J3490

== ENCOUNTER → 2018-06-15 | Outpatient (CLI) | payer OTHER ==
[2017-01-18 19:40] VITALS: BP 129/58
[~2018-06-15] MED LIST changes: +AMLO5TAB10 PO; -AMLO5TAB7 PO; -BACLOFEN IT ONE; -BUPIVACAINE MPF 0.75% 30 ML VIAL. ONE; -LIDOCAINE/PRILOCAINE TOPICAL CREAM 5GM TUBE. TP ONE; -[UNRECOGNIZED DRUG - OTHER] IT ONE; -cloNIDine PF 5,000 MCG/10 ML VIAL EP ONE
--- NOTE | 2018-06-15 17:52 | PAIN ---
DATE OF SERVICE: 06/15/2018 DIAGNOSES: 1. Chronic pain syndrome. 2. Post-lumbar laminectomy syndrome with intrathecal pump. HISTORY OF PRESENT ILLNESS: The patient is a 57-year-old female who returns for followup, last seen on 05/21/2018. The patient had a pump refill and reprogramming. The patient reports her pain has been significant over the past 1-2 weeks in the low back, bilateral hips and lower extremities as well as the midback. The patient reports it is radiating, cramping, stabbing, severe, sharp, aching, shooting and rates a 10 on a scale of 10 at its worst, 9 on average, 7 at its least and is a 9 today. The patient reports no new activities or injuries, no falls or anything that would explain the pain. It has been getting worse on its own, some weather changes perhaps but much more noticeable and painful. The patient reports generally, her PTM will take care of the pain by a spike like this, but it has not been as effective. The patient reports no new motor or sensory deficits, no side effects with the medications. She is on a stable intrathecal dose regimen currently of baclofen, clonidine and bupivacaine at 17 mg per 24 hours with the pump currently. The patient reports no side effect is noted, but still significant pain, increasing, again not controlled with her PTM or the daily weight. PHYSICAL EXAMINATION: VITAL SIGNS: The patient's blood pressure 146/82, pulse 84, respirations 18, temperature 98.1 degrees Fahrenheit, height is 5 feet 8 inches and weight is 153 pounds. GENERAL: The patient is awake, alert, oriented, appropriate, very pleasant demeanor. HEENT: Head shows normocephalic, atraumatic. Extraocular movements intact and symmetrical. Oral cavity: Mucous membranes moist and pink. Dentition is intact. NECK: Shows anterior throat supple without palpable lymphadenopathy noted. Swallow reflex is symmetrical. CHEST: Shows normal with inspection. Breath sounds clear to auscultation bilaterally. HEART: Shows S1, S2 clear. No murmurs auscultated. ABDOMEN: Shows soft, nontender, nondistended. Easily palpable intrathecal pump in the right lower quadrant, which is nontender with well-healed surgical scar noted over it. BACK: Shows spine grossly in the midline. Slight exaggeration of thoracic kyphosis and minor flattening of lumbar lordotic curvature. Lumbar paraspinous musculature shows symmetrical on inspection, on palpation some moderate tenderness throughout the upper, middle and lower distribution of paraspinous muscles but without radiation, without trigger points, without atrophy or hypertrophy. The patient has good rotational motion of lumbar spine, both laterally as well as extension and flexion without significant increase in pain. EXTREMITIES: Lower extremities show deep tendon reflexes 1+ in the patellar and tendo-calcaneus tendons. Motor exam is strong with approximately 4 on a scale of 5, but equal dorsiflexion, extension, quadriceps and hamstring flexion. Peripheral pulses are 1+ posterior tibial. No peripheral edema is noted. Options were discussed with the patient. The patient's old chart was reviewed as her current medication regimen and updated. Current review of systems is updated today as well. We will readjust the patient's pump. Pump was interrogated and we will increase by approximately 10% on a daily rate leaving the PTM controls as they are. The patient was given instruction as well as side effects to be aware of with the medication rate change and will return to the clinic prior to 07/16/2018 for potential refill at that time. She will keep an eye on the refill date with her PTM as if that she uses well. The patient will follow up as scheduled. ALLISON LYNNE MD DR: MARSHAL/nts JOB#: [id number] / [id number]
== END | disposition home or self-care (01) ==
LOC: PNCL 09:52
PROVIDERS: ATTEND Anesthesiology
DX: M96.1 Postlaminectomy syndrome, not elsewhere classified (principal); G89.4 Chronic pain syndrome; Z97.8 Presence of other specified devices
CPT/HCPCS: G0463

== ENCOUNTER → 2018-07-23 | Outpatient (CLI) | payer OTHER ==
[2017-01-18 19:40] VITALS: BP 129/58
[~2018-07-23] MED LIST changes: +BACLOFEN IT ONE; +BUPIVACAINE MPF 0.75% 30 ML VIAL. ONE; +[UNRECOGNIZED DRUG - OTHER] IT ONE; +cloNIDine PF 5,000 MCG/10 ML VIAL EP ONE
--- NOTE | 2018-07-23 13:37 | PAIN ---
DATE OF SERVICE: 07/23/2018 PROGRESS NOTE FOR PAIN CLINIC DIAGNOSES: 1. Chronic pain syndrome. 2. Post-lumbar laminectomy syndrome with intrathecal pump therapy. HISTORY OF PRESENT ILLNESS: The patient is a 58-year-old female who returns for followup status post intrathecal pump therapy with refill of new today. The patient reports she has been doing well, very stable on her regimen with about 75-80% improvement with the medications without significant side effects. The patient reports her pain is a 10 on a scale of 10 at its worst, 7 on average, 6 at its least and is a 6 today in the low back, bilateral hips and into the lower extremities, but again well controlled with the intrathecal pump medication for the most part. The patient reports it is aching, dull, cramping, sometimes constant, sometimes severe in the low back into the legs, posterior gluteus, posterolateral thigh and lateral anterior thighs into the left knee, again worse with walking, standing and changing positions, but she has been increasing her distance walking, doing activities at home and she is taking care of her grandson today who is 4 years old and is very active and she is able to keep up with him she says with the activity. The patient reports she is sleeping well at night about 8 hours, does not awaken her from sleep. The patient reports no new motor or sensory deficits, no new bowel or bladder incontinence or other complaints. PHYSICAL EXAMINATION: VITAL SIGNS: The patient's blood pressure is 149/66, pulse 107, respirations are 18, temperature 97.8 degrees Fahrenheit. Height is 5 feet 8 inches, weighs 149 pounds. GENERAL: The patient is awake, alert, oriented, appropriate, very pleasant demeanor. HEENT: Head shows normocephalic, atraumatic. Extraocular movements are intact and symmetrical. Oral cavity: Mucous membranes are moist and pink. Dentition is intact. NECK: Shows anterior throat supple without palpable lymphadenopathy noted. Swallow reflex is symmetrical. Neck shows full rotational motion of cervical spine, both laterally greater than 45 degrees as well as full extension and full forward flexion without significant difficulty. CHEST: Shows normal on inspection. Breath sounds are clear to auscultation bilaterally. HEART: Shows S1, S2 clear. No murmurs auscultated. ABDOMEN: Soft, nontender, nondistended. Easily palpable intrathecal pump is noted in the right lower quadrant with well-healed surgical scar which is mobile, but nontender. BACK: The patient's back shows spine grossly in the midline with scarring noted in the lumbar distribution and some flattening of the lumbar lordotic curvature. Paraspinous muscle shows symmetrical on inspection, on palpation has some moderate tenderness bilaterally, but only diffusely without radiation. EXTREMITIES: The patient's lower extremities show deep tendon reflexes 1+ in the patellar and tendo-calcaneus tendons are equal. Motor exam is approximately 4 on a scale of 5, but symmetrical bilaterally. Peripheral pulses are 1+ posterior tibia. No peripheral edema is noted. Options were discussed with the patient. The patient's old chart was reviewed as her current medication regimen updated, current review of systems updated today as well. We will proceed with refill intrathecal pump today and reprogramming. Risks were discussed including but not limited to bleeding, infection, possibility of extravasation of medication and possible associated measures necessary as well as poor results regarding pain control. The patient understands and wished to proceed. The patient will return to the clinic prior to or at 09/14, which is her next refill date. The patient was given instructions as well as side effects to be aware of with the medication as well as activity level and return prior to 09/14 for refill at that date or sooner if necessary. DIAGNOSIS: Chronic pain syndrome with post-lumbar laminectomy syndrome. PROCEDURE: Intrathecal pump refill and reprogramming under sterile prep and drape using local anesthetic topical. Using a 22-gauge noncutting [employer] kit needle to enter the pump, which was done without difficulty, 4 mL of old medication was aspirated and discarded and 40 mL of the new medication containing bupivacaine, clonidine and baclofen was replaced. Needle was removed. Sterile bandage was applied. Pump was then reprogrammed for volume and rate settings again with patient returning prior to 09/14, which would be her next refill date. The patient tolerated the procedure well, had no complications. ALLISON LYNNE MD DR: MARSHAL/eusebio JOB#: [id number] / [id number]
== END | disposition home or self-care (01) ==
LOC: PNCL 09:01
PROVIDERS: ATTEND Anesthesiology
DX: G89.4 Chronic pain syndrome (principal); M96.1 Postlaminectomy syndrome, not elsewhere classified; Z88.6 Allergy status to analgesic agent; Z88.8 Allergy status to other drugs, medicaments and biological substances
CPT/HCPCS: 62370; J0475; J0735; J3490; 95991

== ENCOUNTER → 2018-09-24 | Outpatient (CLI) | payer OTHER ==
[2017-01-18 19:40] VITALS: BP 129/58
--- NOTE | 2018-09-24 21:44 | PAIN ---
DATE OF SERVICE: 09/24/2018 PROGRESS NOTE FOR PAIN CLINIC DIAGNOSES: Lumbar post-laminectomy syndrome and chronic pain syndrome with intrathecal pump therapy. HISTORY OF PRESENT ILLNESS: The patient is a 58-year-old female who returns for followup status post intrathecal pump therapy for refill and reprogramming of the pump and PTM. The patient reports doing well with the same level with about 75-80% improvement as she has had previously. The patient has lost some weight over the last few weeks and reports that she is feeling fairly good, but still has some pain in the knees. The patient reports otherwise doing fairly well, low back pain is fairly well controlled once again with about 75-80% level without significant side effects with the medication. The patient reports no new motor or sensory deficits, no new bowel or bladder incontinence or other complaints. The patient rates her pain as a 9 on a scale of 10 at its worst, 6 on average, 5 at its least and is a 5 today. The patient reports it is burning, aching and dull in the low back itself. It is becoming more constant with walking and standing and better with sitting or lying down. It generally does not awaken her from sleep most nights, but does occasionally in the low back. PHYSICAL EXAMINATION: VITAL SIGNS: Today, the patient's blood pressure is 161/100, pulse 99, respirations 18, temperature is 98.2 degrees Fahrenheit. Height is 5 feet 8 inches and weight is 152 pounds. GENERAL: The patient is awake, alert, oriented, appropriate, very pleasant demeanor. HEENT: Head shows normocephalic, atraumatic. Extraocular movements are intact and symmetrical. Oral cavity: Mucous membranes are moist and pink. Dentition is intact. NECK: Shows anterior throat supple without palpable lymphadenopathy noted. Swallow reflex symmetrical. CHEST: Shows normal on inspection. Breath sounds clear to auscultation bilaterally. HEART: Shows S1, S2 clear. No murmurs auscultated. ABDOMEN: Soft, nontender, nondistended. No palpable organomegaly is noted. No rebound or guarding demonstrated. BACK: Shows spine grossly in the midline. Well-healed surgical scarring is noted in the midline with fairly firm musculature throughout the upper, middle and lower distributions of paraspinous muscles, which is moderately tender, more in the right than the left, but without specific trigger points. The patient has good rotational motion of lumbar spine as well as extension and flexion without significant difficulty. EXTREMITIES: Lower extremities show deep tendon reflexes 1+ in the patellar and tendo calcaneus tendons. Motor exam is strong with approximately 4 on a scale of 5, but equal and symmetrical dorsiflexion, extension, quadriceps and hamstring flexion bilaterally. Peripheral pulses are 1+ posterior tibial. No peripheral edema is noted. Options were discussed with the patient. The patient's old chart was reviewed as her current medication regimen updated. Current review of systems updated today as well. We will refill the patient's intrathecal pump with reprogramming as well as reprogramming the PTM device. Risks were discussed including, but not limited to, bleeding, infection, possibility of extravasation of medication and resuscitative measures if necessary as well as poor results regarding pain control. The patient understands and wished to proceed. The patient will return to the clinic in approximately prior to 11/16/2018, which will be her next refill date. She will keep an eye on this with her PTM device as well, which is also reprogrammed today and will follow up at that time for refill or sooner as necessary. DIAGNOSIS: Chronic pain syndrome with post-lumbar and lumbosacral laminectomy syndrome. PROCEDURE: Intrathecal pump refill and reprogramming. DESCRIPTION OF PROCEDURE: Under sterile prep and drape using topical anesthetic and using a 22-gauge noncutting [employer] needle, pump was entered under sterile prep and drape without difficulty. 2 mL of the old medication was withdrawn and discarded and 40 mL of the new medication containing bupivacaine, clonidine and baclofen was then replaced. Needle was withdrawn. Sterile bandage was applied. Pump was then programmed for volume settings as well as PTM programmed. The patient tolerated the procedure well, had no complications. ALLISON LYNNE MD DR: MARSHAL/eusebio JOB#: [id number] / [id number]
== END | disposition home or self-care (01) ==
LOC: PNCL 13:35
PROVIDERS: ATTEND Anesthesiology
DX: M96.1 Postlaminectomy syndrome, not elsewhere classified (principal); G89.4 Chronic pain syndrome
CPT/HCPCS: G0463; J0475; J0735; J3490

== ENCOUNTER → 2018-11-20 | Outpatient (CLI) | payer OTHER, MEDICAID ==
[2017-01-18 19:40] VITALS: BP 129/58
[~2018-11-20] MED LIST changes: +LIDOCAINE/PRILOCAINE TOPICAL CREAM 5GM TUBE. TP ONE
--- NOTE | 2018-11-20 10:06 | PAIN ---
DATE OF SERVICE: 11/20/2018 DIAGNOSES: 1. Chronic pain syndrome. 2. Post-lumbar laminectomy syndrome with intrathecal pump therapy. HISTORY OF PRESENT ILLNESS: The patient is a 58-year-old female who returns for followup status post intrathecal pump therapy with PTM. The patient reports she is doing very well with this, pretty stable with about 70%-80% improvement in her symptoms without significant side effects. The patient reports still pain across the low back, into the bilateral lower extremities to some extent. Worse with walking, standing, change in positions and better with sitting or resting. The patient reports it awakens her from sleep occasionally, but not every night. The patient reports the pain is aching and dull, stabbing at times, sometimes unbearable with walking, standing for a prolonged period, but for the most part controlled well with her intrathecal pump containing baclofen, clonidine and bupivacaine. The patient reports no new motor or sensory deficits, no new changes. The patient rates her pain an 8 on a scale of 10 at its worst over the past week, 7 on average, 5 at its least and is a 5 today. The patient reports no new deficits or other complaints and no side effects with the medication. The patient reports she gets around most fairly well day to day. She has increased her activity in the last few weeks, which has increased the pain as well, but otherwise doing fairly steady. PHYSICAL EXAMINATION: VITAL SIGNS: Today, the patient's blood pressure 156/75, pulse 91, respirations 18, temperature 98.2 degrees Fahrenheit, height is 5 feet 8 inches, weight is 151 pounds. GENERAL: The patient is awake, alert, oriented, appropriate, very pleasant demeanor. HEENT: Head is normocephalic, atraumatic. Extraocular muscles are intact and symmetrical. Oral cavity: Mucous membranes moist and pink. Dentition is intact. NECK: Shows anterior throat supple without palpable lymphadenopathy noted. Swallow reflex symmetrical. CHEST: Shows normal with inspection. Breath sounds clear to auscultation bilaterally. HEART: Shows S1, S2 clear. No murmurs auscultated. ABDOMEN: Soft, nontender, nondistended. No palpable organomegaly is noted. No rebound or guarding demonstrated. Easily palpable intrathecal pump is noted in the right lower quadrant with well-healed surgical scarring noted, but without tenderness. BACK: Shows spine grossly in the midline. Slight increase in thoracic kyphosis and minor flattening of lumbar lordotic curvature with well-healed surgical scarring of the lumbar distribution. Lumbar paraspinous muscle shows symmetrical on inspection. With palpation shows some moderate tenderness diffusely in the low lumbar distribution, but only diffusely bilaterally without radiation. The patient has good rotational motion both laterally as well as extension and flexion without significant pain reported. EXTREMITIES: Lower extremities show deep tendon reflexes 1+ in the patellar and tendo-calcaneus tendons. Motor exam is strong with 5/5 dorsiflexion, extension and equal bilaterally. Peripheral pulses are 1+. No peripheral edema is noted bilaterally. Options were discussed with the patient. The patient's old chart was reviewed as her current medication regimen updated. Current review of systems updated today as well. We will refill the patient's intrathecal pump with reprogramming, also PTM reprogramming today as well. The patient was given instruction as well as side effects to be aware of with the pump and medications and will follow up prior to 01/12/2019 to be her next refill date at maximum PTM usage. The patient will monitor this as well with the PTM on her own for any date change that may occur with refill scheduling. DIAGNOSES: 1. Chronic pain syndrome. 2. Post-lumbar laminectomy syndrome. PROCEDURE: Intrathecal pump refill and reprogramming under sterile prep and drape using local anesthetic topical. Using a 22-gauge noncutting [employer] needle under sterile prep and drape, the pump was entered without difficulty. 5 mL of the old medication was withdrawn and discarded and 40 mL of the new medication containing bupivacaine, clonidine and baclofen was replaced without difficulty and without resistance. The needle was withdrawn. Sterile bandage was applied. Pump was then reprogrammed to volume settings as well as PTM settings and alarm volume settings and PTM reprogrammed as well, handheld. The patient tolerated the procedure well, had no complications. ALLISON LYNNE MD DR: MARSHAL/eusebio JOB#: [id number] / [id number]
== END ==
LOC: PNCL 09:00
PROVIDERS: ATTEND Anesthesiology
DX: G89.4 Chronic pain syndrome (principal); M96.1 Postlaminectomy syndrome, not elsewhere classified
CPT/HCPCS: 95991; J0475; J0735; J3490

== ENCOUNTER → 2019-01-01 | Outpatient (CLI) | payer OTHER, MEDICAID ==
[2017-01-18 19:40] VITALS: BP 129/58
[~2019-01-01] MED LIST changes: -BACLOFEN IT ONE; -BUPIVACAINE MPF 0.75% 30 ML VIAL. ONE; -LIDOCAINE/PRILOCAINE TOPICAL CREAM 5GM TUBE. TP ONE; -[UNRECOGNIZED DRUG - OTHER] IT ONE; -cloNIDine PF 5,000 MCG/10 ML VIAL EP ONE
--- NOTE | 2019-01-01 13:06 | PAIN ---
DATE OF SERVICE: 01/01/2019 PROGRESS NOTE FOR PAIN CLINIC DIAGNOSES: 1. Chronic pain syndrome. 2. Post-lumbar laminectomy syndrome with intrathecal pump therapy. HISTORY OF PRESENT ILLNESS: The patient is a 58-year-old female who returns for followup status post intrathecal pump refill on 11/20. The patient did well with this, reports the pain has been increasing; however, in the low back, primarily with increased activity recently, although has been getting worse over the past 2-3 weeks gradually. The patient reports no loss of motor function. No bowel or bladder incontinence or any side effects with the medication, but still having some increased pain in the low back, stabbing, described as aching, dull, tight and severe at times, mostly with walking and standing. The patient is taking care of her grandson, has been increasing her activity because of this and feels this may have some consequence as well. The patient reports the pain is a 9 on a scale of 10 at its worst in the past week, 7 on average, 5 at its least and is a 7 today. The patient reports no new motor or sensory deficits, no side effects with the medication. PHYSICAL EXAMINATION: VITAL SIGNS: The patient's blood pressure 149/79, pulse 73, respirations 18, temperature 98.2 degrees Fahrenheit, height is 5 feet 8 inches, weight 157 pounds. GENERAL: The patient is awake, alert, oriented, appropriate, very pleasant demeanor. HEENT: Head normocephalic, atraumatic. Extraocular movements are intact and symmetrical. Oral cavity: Mucous membranes are moist and pink. Dentition is intact. NECK: Shows anterior throat supple without palpable adenopathy noted. Swallow reflex symmetrical. CHEST: Shows normal on inspection. Breath sounds clear to auscultation bilaterally. HEART: Shows S1, S2 clear. No murmurs auscultated. ABDOMEN: Soft, nontender, nondistended. No palpable organomegaly is noted. No rebound or guarding demonstrated. BACK: Shows spine grossly in the midline. Normal-appearing thoracic kyphosis and minor flattening of lumbar lordotic curvature. Lumbar paraspinous muscle shows symmetrical on inspection, with palpation shows some moderate tenderness diffusely in the middle and lower distribution of paraspinous muscles, but firm and somewhat tender with rotation of motion as well, both laterally greater than 10 degrees right and left as well as extension and forward flexion all with very minor tenderness increased with these rotations. EXTREMITIES: Lower extremities show deep tendon reflexes at 2+ in the patellar, 1+ tendo-calcaneus tendons. Motor exam is strong with 5/5 dorsiflexion, extension, quadriceps and hamstring flexion and symmetrical. PLAN: Options were discussed with the patient. The patient's old chart was reviewed as well as her current medication regimen updated. Current review of systems updated today as well and we will adjust the patient's pump from a total daily dose of 19 mg driving dose of bupivacaine to 21 mg per day, representing a 7% change, PTM will remain at 0.3 mg q. 3 hours with 5 maximum activations a day as previous. The patient will follow up in approximately 2 weeks as her refill date if 01/13 and we will plan on refill at that time. ALLISON LYNNE MD DR: MARSHAL/eusebio JOB#: [id number] / [id number]
== END | disposition home or self-care (01) ==
LOC: PNCL 09:01
PROVIDERS: ATTEND Anesthesiology
DX: G89.4 Chronic pain syndrome (principal); M96.1 Postlaminectomy syndrome, not elsewhere classified; M54.5 Low back pain
CPT/HCPCS: G0463

== ENCOUNTER → 2019-01-16 | Outpatient (CLI) | payer OTHER, MEDICAID ==
[2017-01-18 19:40] VITALS: BP 129/58
[~2019-01-16] MED LIST changes: +BACLOFEN IT ONE; +BUPIVACAINE MPF 0.75% 30 ML VIAL. ONE; +CRESTOR40 MG PO; +LOSA-73 PO; +[UNRECOGNIZED DRUG - OTHER] IT ONE; +cloNIDine PF 5,000 MCG/10 ML VIAL EP ONE
--- NOTE | 2019-01-16 15:09 | PAIN ---
DATE OF SERVICE: 01/16/2019 DIAGNOSES: 1. Chronic pain syndrome. 2. Post-lumbar laminectomy syndrome with intrathecal pump therapy. HISTORY OF PRESENT ILLNESS: The patient is a 58-year-old female who returns for followup status post intrathecal pump therapy. She was seen end of December when we increased her pump to 21 mg a day from 19 mg a day driving drug of bupivacaine. The patient reports doing much better with this, reports her pain level has been lower. She also has a lot of stress. She notes at home while taking care of her grandson who is now in school and this has helped a bit too to give her some time to herself during the day. The patient reports the pain is a 9 on a scale of 10 at its worst, 8 on average, 6 at its least and is a 6 today. The patient reports it is aching, sharp, cramping, radiating to the low back into the right lower extremity as it was previously, better with sitting or lying down, when she lies down, it is not too bad, does not awaken her from sleep at night. The patient reports no new motor or sensory deficits, no new bowel or bladder incontinence, no side effects with medication. PHYSICAL EXAMINATION: VITAL SIGNS: The patient's blood pressure 140/81, pulse 74, respirations 16, temperature 98.4 degrees Fahrenheit, height is 5 feet 8 inches, weight is 158 pounds. GENERAL: The patient is awake, alert, oriented, appropriate, very pleasant demeanor. HEENT: Head is normocephalic and atraumatic. The patient is wearing eyeglasses. Extraocular movements are intact and symmetrical. Oral cavity: Mucous membranes moist and pink. Dentition is intact. NECK: Shows anterior throat supple without palpable lymphadenopathy noted. Swallow reflex symmetrical. CHEST: Shows normal on inspection. Breath sounds clear to auscultation bilaterally. HEART: Shows S1, S2 clear. No murmurs auscultated. ABDOMEN: Soft, nontender, nondistended. No palpable organomegaly is noted. No rebound or guarding demonstrated. The patient's abdomen shows easily palpable intrathecal pump in the right lower quadrant, which is nontender with palpation. BACK: Shows spine grossly in the midline. Normal-appearing thoracic kyphosis and lumbar lordotic curvature slightly flattened. EXTREMITIES: The patient's lower extremities show deep tendon reflexes 2+ in the patellar, 1+ tendo-calcaneus tendons. Motor exam is strong with 5/5 dorsiflexion and extension. Peripheral pulses are 1+ posterior tibia. No peripheral edema is noted. Options were discussed with the patient. The patient's old chart was reviewed as her current medication regimen updated. Current review of systems updated today as well. We will proceed with intrathecal pump refill and reprogramming as well as PTM reprogramming. Risks were again discussed including, but not limited to bleeding, infection, possibility of extravasation of medication and resuscitative measures if necessary as well as poor results regarding pain control. The patient understands and wished to proceed. The patient will return to clinic in approximately 7 weeks and is scheduled for refill on 03/05/2019 at full maximum use of her PTM. The patient will monitor this as well at home with PTM use. We will have her return at or near the refill date of 03/05. DIAGNOSES: Chronic pain syndrome with post-lumbar laminectomy syndrome. PROCEDURE: Intrathecal pump refill and reprogramming as well as PTM reprogramming. Under sterile prep and drape using local anesthetic topical, using a 22-gauge noncutting [employer] needle, pump was entered without difficulty guidance under sterile prep and technique, 5 mL of the old medication was withdrawn and discarded. A 40 mL of new medication was replaced containing bupivacaine, clonidine, and baclofen. Needle was withdrawn. Sterile bandage applied. The patient tolerated procedure well, had no complications. Pump was reprogrammed then for volume as well as PTM settings. ALLISON LYNNE MD DR: MARSHAL/eusebio JOB#: [id number] / [id number]
== END ==
LOC: PNCL 09:01
PROVIDERS: ATTEND Anesthesiology
DX: G89.4 Chronic pain syndrome (principal); M96.1 Postlaminectomy syndrome, not elsewhere classified
CPT/HCPCS: 95991; J0475; J0735; J3490

== ENCOUNTER → 2019-03-14 | Outpatient (CLI) | payer OTHER, MEDICAID ==
[2017-01-18 19:40] VITALS: BP 129/58
[~2019-03-14] MED LIST changes: +CLON-77 PO; -CLON0.5T11 PO; -NITR0.4T SL; +NITR0.4T24 SL; +OMEP40CA45 PO; -OMEP40CA5 PO
--- NOTE | 2019-03-14 10:54 | PAIN ---
DATE OF SERVICE: 03/14/2019 PROGRESS NOTE FOR PAIN CLINIC PREOPERATIVE DIAGNOSES: 1. Chronic pain syndrome. 2. Post-lumbar laminectomy syndrome with intrathecal pump therapy. HISTORY OF PRESENT ILLNESS: The patient is a 58-year-old female who returns for followup status post intrathecal pump therapy with PTM. The patient is here today for pump refill and reprogramming. The patient reports she is doing fairly well with this, with about a 75% improvement over the past few months with the pain still in the low back and left lower extremity, but very well controlled. The PTM is doing well without any specific side effects or other complaints. The patient reports the pain is 8 on a scale of 10 at its worst over the past week, 7 on average, 4 at its least and is a 4 today. The patient reports it is aching, sharp, dull, cramping, radiating into left leg, sometimes constant with activity, better with sitting or lying down, generally does not awaken her from sleep, but occasionally at night but not every night. The patient reports that Lidoderm patch has been helping with her back and hip pain as well. The patient reports no new motor or sensory deficits, no new bowel or bladder incontinence. PHYSICAL EXAMINATION: VITAL SIGNS: The patient's blood pressure 144/85, pulse 74, respirations 16, temperature is 98.5 degrees Fahrenheit, height is 5 feet 8 inches, weight is 162 pounds. GENERAL: The patient is awake, alert, oriented, appropriate, very pleasant demeanor. HEENT: Shows normocephalic, atraumatic. Extraocular movements are intact and symmetrical. Oral cavity; mucous membranes moist and pink. Dentition is intact. NECK: Shows anterior throat supple without palpable lymphadenopathy noted. Swallow reflex symmetrical. CHEST: Shows normal on inspection. Breath sounds clear to auscultation bilaterally. HEART: Shows S1, S2 clear. No murmurs auscultated. ABDOMEN: Soft, nontender, nondistended. No palpable organomegaly is noted. Well-healed surgical scars noted in the right upper quadrant with easily palpable intrathecal pump, which is nontender. EXTREMITIES: The patient's lower extremities show deep tendon reflexes 2+ in the patellar, 1+ tendo-calcaneus tendons. Motor exam is strong with 5/5 dorsiflexion and extension and equal bilaterally. Options were discussed with the patient. The patient's old chart was reviewed as her current medication regimen updated. Current review of systems updated today as well with intrathecal pump refill and reprogramming. Risks were again discussed including, but not limited to bleeding, infection, possibility of extravasation of medication and resuscitative measures if necessary as well as poor results regarding pain control. The patient understands and wished to proceed. The patient will return to the clinic in approximately 2 months, scheduled for prior to 05/01 for next refill date or sooner if necessary. The patient had PTM reprogramming today as well. We will follow up as scheduled. DIAGNOSES: Chronic pain syndrome with post-lumbar laminectomy syndrome with intrathecal pump therapy. PROCEDURE: Intrathecal pump refill and reprogramming with PTM reprogramming under sterile prep and drape using local anesthetic, topical. Using 22-gauge noncutting [employer] needle, pump was entered without difficulty. A 3 mL of the old medication was withdrawn and discarded and 40 mL of new medication containing bupivacaine, clonidine and hydromorphone was then replaced in the pump. Sterile needle was removed and sterile bandage applied. Pump was then reprogrammed for volume settings as well as PTM settings, and new alarm volume settings and PTM was reprogrammed as well. CONDITION AT DISCHARGE: Stable. The patient tolerated the procedure well, had no complications. ALLISON LYNNE MD DR: MARSHAL/eusebio JOB#: [id number] / [id number]
== END ==
LOC: PNCL 09:26
PROVIDERS: ATTEND Anesthesiology
DX: G89.4 Chronic pain syndrome (principal); M96.1 Postlaminectomy syndrome, not elsewhere classified
CPT/HCPCS: 95991; J0475; J0735; J3490

== ENCOUNTER → 2019-05-08 | Outpatient (CLI) | payer OTHER, MEDICAID ==
[2017-01-18 19:40] VITALS: BP 129/58
[~2019-05-08] MED LIST changes: +ERGO2000 PO; -LAMO200T2 PO; +LAMO200T6 PO; +LIDO1ADH4 TP; +LORA10TA55 PO; +NAPR-683 PO; -POTA10TA12 PO; +POTASSIUM CHLO10 ME1 PO
--- NOTE | 2019-05-08 11:12 | PAIN ---
DATE OF SERVICE: 05/08/2019 PROGRESS NOTE FOR PAIN CLINIC DIAGNOSES: 1. Chronic pain syndrome. 2. Post-lumbar laminectomy syndrome with intrathecal pump therapy. HISTORY OF PRESENT ILLNESS: The patient is a 58-year-old female who returns for followup status post intrathecal pump therapy with baclofen, clonidine and bupivacaine. The patient reports that she is doing fairly stable with her pain level improved by about 75-80% without significant side effects. The patient reports no new motor or sensory deficits, no new changes, still some pain in the low back and legs, posterior gluteus, posterior thighs and calves, worse with walking, standing, changing positions, better with sitting or lying down, generally does not awake her from sleep at night. The patient reports the pain is 9 on a scale of 10 at its worst over the past week, 7 on average, 5 at its least and is a 7 today. The patient reports no side effects with the medication and is here for pump refill reprogramming today. The patient's PTM is working well. The patient reports she can tell good difference in change with the PTM boluses. PHYSICAL EXAMINATION: VITAL SIGNS: The patient's blood pressure 141/88, pulse 96, respirations 18, temperature 98.0 degrees Fahrenheit, height is 5 feet 6 inches, weight is 153 pounds. GENERAL: The patient is awake, alert, oriented, appropriate, very pleasant demeanor. HEENT: Shows normocephalic, atraumatic. Extraocular movements are intact and symmetrical. Oral cavity: Mucous membranes moist and pink. Dentition is intact. NECK: Shows anterior throat supple without palpable lymphadenopathy noted. Swallow reflex symmetrical. CHEST: Shows normal on inspection. Breath sounds clear to auscultation bilaterally. HEART: Shows S1, S2 clear. ABDOMEN: Obese but soft, nontender, nondistended. Previously well-healed surgical scar is noted and easily palpable, intrathecal pump is noted in the right lower quadrant, which is mobile and nontender. EXTREMITIES: The patient's lower extremities show deep tendon reflexes at 2+ in the patellar and tendo calcaneus tendons. Motor exam is strong with 5/5 dorsiflexion and extension. BACK: The patient's back shows grossly in the midline. Lumbar paraspinous muscle shows symmetrical on inspection, with palpation shows some moderate tenderness diffusely with well-healed surgical scar noted as well. The patient has good rotational motion both laterally as well as extension and flexion without significant difficulty. Options were discussed with the patient. The patient's old chart was reviewed as her current medication regimen updated. Current review of systems updated today as well. We will proceed with intrathecal pump refill and reprogramming. Risks were again discussed including, but not limited to bleeding, infection, possibility of extravasation of medication as well as poor results regarding pain control. The patient understands and wished to proceed. The patient will return to the clinic prior to 06/25/2019 which is her next refill date and we will keep a monitor of this with her PTM also for refill date. The patient will continue with stretching and strengthening exercises as tolerated and exercise as tolerated and will follow up as scheduled. DIAGNOSIS: Chronic pain syndrome with post-lumbar laminectomy syndrome. PROCEDURE: Intrathecal pump refill and reprogramming under sterile prep and drape using local anesthetic topical. Using a 22-gauge noncutting [employer] kit needle, pump was entered without difficulty. 4 mL of the old medication was withdrawn and discarded and 40 mL of new medication containing bupivacaine, baclofen and clonidine was then replaced. Needle was withdrawn. Sterile bandage was applied. Pump was then reprogrammed for volume as well as alarm settings and PTM settings. The patient will return to clinic again prior to 06/25/2019 as PTM dictates. CONDITION AT DISCHARGE: Stable. The patient tolerated the procedure well, had no complications. ALLISON LYNNE MD DR: MARSHAL/eusebio JOB#: [id number] / [id number]
== END ==
LOC: PNCL 08:45
PROVIDERS: ATTEND Anesthesiology
DX: M96.1 Postlaminectomy syndrome, not elsewhere classified (principal); G89.4 Chronic pain syndrome
CPT/HCPCS: 95991; J0475; J0735; J3490

== ENCOUNTER → 2019-07-05 | Outpatient (CLI) | payer OTHER, MEDICAID ==
[2017-01-18 19:40] VITALS: BP 129/58
[~2019-07-05] MED LIST changes: -BACLOFEN IT ONE; -BUPIVACAINE MPF 0.75% 30 ML VIAL. ONE; -BUPR300T4 PO; +BUPR300T92 PO; -[UNRECOGNIZED DRUG - OTHER] IT ONE; -cloNIDine PF 5,000 MCG/10 ML VIAL EP ONE
--- NOTE | 2019-07-05 10:18 | PAIN ---
DATE OF SERVICE: 07/05/2019 PROGRESS NOTE FOR PAIN CLINIC DIAGNOSIS: Chronic pain syndrome with post-lumbar laminectomy syndrome and intrathecal pump therapy. HISTORY OF PRESENT ILLNESS: The patient is a 58-year-old female who returns for followup status post intrathecal pump therapy with clonidine, bupivacaine, and baclofen. The patient reports she is doing very well with this, has been on very stable regimen, reports still some pain in the low back and bilateral lower extremities. The patient reports the pain is cramping, aching, dull, sometimes radiating to the legs, mostly in the posterior gluteus, lateral thighs, and becoming constant with activity, but for the most part doing fairly well. The patient reports about 75% improvement overall with the pump. The patient reports the pump has been beeping as it reached its alarm level earlier this week. The patient reports no new motor or sensory deficits, no new changes, no signs of withdrawal. The patient reports the pain is 9 on a scale of 10 at its worst over the past week, 6 on average, 5 at its least and is a 6 today. The patient reports no new changes, no new bowel or bladder incontinence or other complaints. The patient reports it awakens her from sleep occasionally, but not every night, usually she has been doing increased distance walking. She has been taking care of her grandson and dropped him off from school before her visit today. PHYSICAL EXAMINATION: VITAL SIGNS: The patient's blood pressure 172/89, pulse 78, respirations 18, temperature is 98.0 degrees Fahrenheit, height is 5 feet 8 inches, weight is 150 pounds. GENERAL: The patient is awake, alert, oriented, appropriate, very pleasant demeanor. HEENT: Head shows normocephalic, atraumatic. Extraocular movements are intact and symmetrical. Oral cavity: Mucous membranes moist and pink. Dentition is intact. NECK: Shows anterior throat supple without palpable lymphadenopathy noted. Swallow reflex symmetrical. CHEST: Shows normal on inspection. Breath sounds are clear bilaterally. HEART: Shows S1, S2 clear. No murmurs auscultated. ABDOMEN: Soft, nontender, nondistended. Easily palpable intrathecal pump is noted in the right lower quadrant, which is nontender with well-healed surgical scars. EXTREMITIES: The patient's lower extremities show deep tendon reflexes 2+ in the patellar, 1+ tendo-calcaneus tendons. Motor exam is strong with 5/5 dorsiflexion, extension, quadriceps and hamstring flexion. Peripheral pulses are 1+ in the posterior tibia. No peripheral edema is noted bilaterally. Options were discussed with the patient. The patient's old chart was reviewed as her current medication regimen updated. Current review of systems updated today as well. We will proceed with intrathecal pump refill and reprogramming today. Risks were discussed including but not limited to bleeding, infection, possibility of extravasation of medication and possible resuscitative measures if necessary as well as poor results regarding pain control. The patient understands and wished to proceed. The patient will return to clinic prior to 08/22/2019 for a pump refill when it is scheduled for refill for next time. The patient was counseled as to activity level as well as side effects to be aware of. DIAGNOSIS: Chronic pain syndrome with post-lumbar laminectomy syndrome and intrathecal pump therapy. PROCEDURE: Intrathecal pump refill and reprogramming under sterile prep and drape using local anesthetic topical. A 22-gauge noncutting [employer] kit needle was used to access the pump without difficulty. A 2 mL of old medication was removed and discarded and 40 mL of new medication containing bupivacaine, clonidine and baclofen was replaced. Needle was withdrawn. Sterile bandage was applied. Pump was then reprogrammed for settings and volume as well as alarm control settings. CONDITION AT DISCHARGE: Stable. The patient tolerated the procedure well, had no complications. ALLISON LYNNE MD DR: MARSHAL/eusebio JOB#: [id number] / [id number]
== END | disposition home or self-care (01) ==
LOC: PNCL 08:27
PROVIDERS: ATTEND Anesthesiology
DX: G89.4 Chronic pain syndrome (principal); M96.1 Postlaminectomy syndrome, not elsewhere classified; Z98.890 Other specified postprocedural states; Z88.8 Allergy status to other drugs, medicaments and biological substances; Z91.041 Radiographic dye allergy status
CPT/HCPCS: 95991

== ENCOUNTER → 2019-08-26 | Outpatient (CLI) | payer OTHER, MEDICAID ==
[2017-01-18 19:40] VITALS: BP 129/58
[~2019-08-26] MED LIST changes: +BACLOFEN IT ONE; +BUPIVACAINE MPF 0.75% 30 ML VIAL. ONE; +[UNRECOGNIZED DRUG - OTHER] IT ONE; +cloNIDine PF 5,000 MCG/10 ML VIAL EP ONE
--- NOTE | 2019-08-26 10:27 | PAIN ---
DATE OF SERVICE: 08/26/2019 PROGRESS NOTE FOR PAIN CLINIC DIAGNOSES: 1. Chronic pain syndrome. 2. Post-lumbar laminectomy syndrome with intrathecal pump therapy. HISTORY OF PRESENT ILLNESS: The patient is a 59-year-old female who returns for followup status post intrathecal pump therapy, doing very well, about 75%-80% improvement with her medication in her pump. The patient reports no new motor or sensory deficits, no new bowel or bladder incontinence, no side effects with the medication. Reports her pain is fairly stable, still significant pain in the low back and bilateral lower extremities, but much improved from what it was without the pump. The patient reports it is an 8 on a scale of 10, its worst over the past week, 5 on average, 4 at its least and is a 4 today. The patient reports tingling, cramping, aching in the low back, some radiating pain into the hips as well with increased activity. The patient has been fairly inactive over the past few weeks and reports the pain is very well controlled, generally does not awaken her from sleep at night as well. The patient reports no side effects, no new motor or sensory deficits. PHYSICAL EXAMINATION: VITAL SIGNS: The patient's blood pressure is 150/77, pulse 88, respirations are 16, temperature is 98.1 degrees Fahrenheit, height is 5 feet 8 inches, weight is 150 pounds. GENERAL: The patient is awake, alert, oriented, appropriate, very pleasant demeanor. HEENT: Head is normocephalic, atraumatic. Extraocular movements are intact and symmetrical. Oral cavity: Mucous membranes are moist and pink. Dentition is intact. NECK: Shows anterior throat supple without palpable lymphadenopathy noted. Swallow reflex symmetrical. CHEST: Shows normal on inspection. Breath sounds are clear. HEART: Shows S1, S2 clear. ABDOMEN: Soft, nontender. The patient's abdomen once again shows well-healed surgical scar; easily palpable right lower quadrant intrathecal pump, which is nontender. BACK: Shows spine grossly in the midline. Normal-appearing thoracic kyphosis and minor flattening of lumbar lordotic curvature. Well-healed surgical scarring. Lumbar paraspinous muscle shows symmetrical on inspection, on palpation shows some moderate tenderness diffusely in the middle and lower distribution of paraspinous muscles, but only diffusely without significant radiation. The patient does show good rotational motion of lumbar spine, both laterally as well as extension and flexion without difficulty. No tenderness over the sacrum and sacroiliac region or the spinous processes with direct palpation. EXTREMITIES: The patient's lower extremities show deep tendon reflexes 2+ in the patellar, 1+ tendo-calcaneus tendons. Motor exam is strong with 5/5 dorsiflexion, extension, quadriceps and hamstring flexion symmetrical. Peripheral pulses are 1+ posterior tibia. No peripheral edema is noted. PLAN: Options were discussed with the patient. The patient's old chart was reviewed as her current medication regimen updated. Current review of systems updated today as well. We will proceed with intrathecal pump refill and reprogramming today. Risks were discussed including but not limited to bleeding, infection, possibility of extravasation of medication and possible absorption and resuscitative measures if necessary as well as poor results regarding pain control. The patient understands and wished to proceed. The patient will return to the clinic in approximately 2 months. Refill date calculated on the patient's pump programming is 10/13/2019. The patient will return to the clinic on 10/13/2019 or prior to that as necessary. The patient was counseled as to activity level as well as side effects to be aware of with the medication. DIAGNOSIS: Chronic pain syndrome with post-lumbar laminectomy syndrome and intrathecal pump therapy. PROCEDURE: Intrathecal pump refill and reprogramming under sterile prep and drape using local anesthetic topical. The patient's pump was entered with a 22-gauge noncutting [employer] kit needle without difficulty; 4 mL of old medication was withdrawn and discarded; 40 mL of new medication containing bupivacaine, clonidine and baclofen was then replaced. Needle was withdrawn. Sterile bandage applied. Pump was then reprogrammed for volume and rate settings as well as alarm settings. The patient tolerated the procedure well, had no complications. ALLISON LYNNE MD DR: MARSHAL/eusebio JOB#: [id number] / [id number]
== END ==
LOC: PNCL 08:57
PROVIDERS: ATTEND Anesthesiology
DX: G89.4 Chronic pain syndrome (principal); M96.1 Postlaminectomy syndrome, not elsewhere classified
CPT/HCPCS: 95991; J0475; J0735; J3490

== ENCOUNTER → 2019-10-18 | Outpatient (CLI) | payer OTHER, MEDICAID ==
[2017-01-18 19:40] VITALS: BP 129/58
[~2019-10-18] MED LIST changes: -BACLOFEN IT ONE; -BUPIVACAINE MPF 0.75% 30 ML VIAL. ONE; +PREG-9 PO; -PREG75CA PO; -[UNRECOGNIZED DRUG - OTHER] IT ONE; -cloNIDine PF 5,000 MCG/10 ML VIAL EP ONE
--- NOTE | 2019-10-18 10:54 | PAIN ---
DATE OF SERVICE: 10/18/2019 PROGRESS NOTE FOR PAIN CLINIC DIAGNOSES: 1. Chronic pain syndrome. 2. Post-lumbar laminectomy syndrome with intrathecal pump therapy. HISTORY OF PRESENT ILLNESS: The patient is a 59-year-old female who returns for followup status post intrathecal pump management. The patient reports doing fairly well with about a 75-80% improvement overall with her pump medication and no side effects. The patient reports that she has had some increased pain over the last few weeks. She thinks it is consistent with some increased activity. She had moved to her brother's house as she was staying with him for a while as someone in her apartment building had coronavirus positive result and she has been staying with him. She said that there is somewhat more stressful emotionally with her, but the pain is also more noticeable in the low back and hips and the lower extremity to some extent. The patient reports no difficulty with walking or changing positions or activity, but the pain is fairly steady. The patient reports pain is an 8 on a scale of 10 at its worst over the past week, 4 on average and 4 at its least and 4 today. The patient reports it is aching and dull and cramping sometimes, radiating into the legs, but only with increased activity. The patient reports it does not awaken her from sleep fairly often and she is doing otherwise fairly well without significant side effects with the pump. She returns today for pump refill and reassessment. PHYSICAL EXAMINATION: VITAL SIGNS: The patient's blood pressure 182/89, pulse 84, respirations 18, temperature 97.9 degrees Fahrenheit, weight is 152 pounds. GENERAL: The patient is awake, alert, oriented, appropriate. She has a very pleasant demeanor. HEENT: Shows normocephalic, atraumatic. Extraocular movements are intact and symmetrical. Oral cavity: Mucous membranes are moist and pink. Dentition intact. NECK: Shows anterior throat supple without palpable lymphadenopathy noted. Swallow reflex is symmetrical. CHEST: Shows normal on inspection. Breath sounds are clear bilaterally. HEART: Shows S1, S2 clear. No murmurs auscultated. ABDOMEN: Soft, nontender, nondistended. No palpable organomegaly is noted. No rebound or guarding demonstrated. Easily palpable intrathecal pump is noted with well-healed surgical scarring and without significant tenderness with palpation. BACK: The patient's back shows spine grossly in midline. Normal appearing thoracic kyphosis and minor flattening of lumbar lordotic curvature with well-healed surgical scar noted in the lumbar distribution. Lumbar paraspinous muscle shows symmetrical on inspection, with palpation shows some moderate tenderness diffusely bilaterally, but only diffusely without significant radiation. The patient has good rotational motion of lumbar spine, both laterally as well as extension and flexion without significant increase in pain. EXTREMITIES: The patient's lower extremities show deep tendon reflexes at 2+ in the patellar, 1+ tendo-calcaneus tendons. Motor exam is strong with 5/5 dorsiflexion, extension, quadriceps and hamstring flexion is symmetrical. Peripheral pulses are 1+ posterior tibia. No peripheral edema is noted. Options were discussed with the patient. The patient's old chart was reviewed as was her current medication regimen updated. Current review of systems updated today as well. We will refill the patient's intrathecal pump with programming and alarm settings as well. Risks were discussed including but not limited to bleeding, infection, possibility of extravasation of medication and resuscitative measures if necessary as well as poor results regarding pain control. The patient understands and wished to proceed. The patient will return to the clinic at or prior to 12/04 as her next refill date. The patient was given instruction as well as side effects to be aware of with the medication as well as activity level discussed. DIAGNOSIS: Chronic pain syndrome with post-lumbar laminectomy syndrome. PROCEDURE: Intrathecal pump refill and reprogramming under sterile prep and drape using local anesthetic topical. MEDICATIONS INJECTED: A 22-gauge noncutting Medtronic needle was used to access the pump and 4 mL of the old medication was withdrawn and 40 mL of new medication containing bupivacaine, clonidine and baclofen was then replaced in the pump. Needle was withdrawn. Sterile bandage was applied. The patient tolerated the procedure well, had no complications. ALLISON LYNNE MD DR: MARSHAL/eusebio JOB#: [id number] / [id number]
== END | disposition home or self-care (01) ==
LOC: PNCL 09:42
PROVIDERS: ATTEND Anesthesiology
DX: G89.4 Chronic pain syndrome (principal); M96.1 Postlaminectomy syndrome, not elsewhere classified; Z98.890 Other specified postprocedural states; Z88.8 Allergy status to other drugs, medicaments and biological substances; Z91.041 Radiographic dye allergy status
CPT/HCPCS: 95991

== ENCOUNTER → 2019-10-21 | Outpatient (CLI) | payer OTHER, MEDICAID ==
[2017-01-18 19:40] VITALS: BP 129/58
--- NOTE | 2019-10-21 15:21 | PAIN ---
DATE OF SERVICE: 10/21/2019 PROGRESS NOTE FOR PAIN CLINIC DIAGNOSES: 1. Chronic pain syndrome. 2. Post-lumbar laminectomy syndrome with intrathecal pump therapy. HISTORY OF PRESENT ILLNESS: The patient is a 59-year-old female who returns for followup status post intrathecal pump refill and reprogramming 3 days ago. The patient called earlier this morning and said that she was feeling nauseous and did not feel right, wanted to check her pump and make sure it was program correctly as we did refill on last Monday and she has not had any specific side effects that she is feeling nauseous and feeling out of sorts. The patient is not running a fever, did not develop a cough. No diarrhea, no vomiting, but just a nauseous feeling when she does not feel quite herself. We had the patient come in. The patient reports again feeling this way with some pain in the low back and hips, but well controlled with the pump thus far. The patient does not use her PTM device since Monday but describes the pain in the back is aching, dull, cramping, and radiating. The patient reports it is a 7 on a scale of 10 over the past few days at its worst, 5 on average and 4 at its least and is a 5 today. The patient reports no new motor deficits, no new bowel or bladder incontinence. Again, no vomiting, but with nausea, with no diarrhea or other gastrointestinal symptoms. The patient reports her appetite has not been good over the weekend, but she has been drinking plenty of fluids by her report. PHYSICAL EXAMINATION: VITAL SIGNS: The patient's blood pressure is 179/63, pulse 80, respirations 18, temperature 97.8 degrees Fahrenheit, height is 5 feet 8 inches, weight is 153 pounds. GENERAL: The patient is awake, alert, oriented, appropriate, very pleasant demeanor. HEENT: Shows normocephalic, atraumatic. The patient wears eyeglasses. Extraocular movements are intact and symmetrical. Oral cavity: Mucous membranes moist and pink. Dentition is intact. NECK: Shows anterior throat supple. No palpable organomegaly is noted. CHEST: Shows normal on inspection. Breath sounds are clear to auscultation bilaterally. No rales, rhonchi or wheezes auscultated. HEART: Shows S1, S2 clear. No murmurs auscultated. ABDOMEN: Soft, nontender, nondistended. Easily palpable intrathecal pump is again noted in the right lower quadrant, which is mobile without tenderness. PLAN: Options were discussed with the patient. The patient's old chart was reviewed as her current medication regimen updated. Current review of systems updated today as well. We will interrogate the patient's pump today, which showed settings as documented on Monday, 10/17 with still same alarm volumes. Total volume now at 37.6 mL that was 40 on Monday with refill and reprogramming. Still shows same duration of medication and concentrations and alarm volumes and settings. The patient felt somewhat comforted after the pump was checked and verified to settings and volume. We will have the patient prescribed some Zofran for nausea in the meantime. I asked her to call again tomorrow to further update how she is feeling as well and to maintain hydration and try to increase her appetite as tolerated. The patient still has date of 12/05/2019 for pump refill. We will proceed for with this and again await for followup on her tomorrow. ALLISON LYNNE MD DR: MARSHAL/eusebio JOB#: [id number] / [id number]
== END | disposition home or self-care (01) ==
LOC: PNCL 13:22
PROVIDERS: ATTEND Anesthesiology
DX: M96.1 Postlaminectomy syndrome, not elsewhere classified (principal); G89.4 Chronic pain syndrome
CPT/HCPCS: G0463

== ENCOUNTER → 2019-12-09 | Outpatient (CLI) | payer OTHER, MEDICAID ==
[2017-01-18 19:40] VITALS: BP 129/58
[~2019-12-09] MED LIST changes: +LUBI8CAP4 PO
--- NOTE | 2019-12-09 11:42 | PAIN ---
DATE OF SERVICE: 12/09/2019 PROGRESS NOTE FOR PAIN CLINIC DIAGNOSES: 1. Chronic pain syndrome. 2. Post-lumbar laminectomy syndrome with intrathecal therapy. HISTORY OF PRESENT ILLNESS: The patient is a 59-year-old female who returns for followup status post intrathecal pump therapy. Reports very stable regimen with her intrathecal pump. She does report she is having some increased constipation lately, but reports it is not necessarily new for her. She just believes she has been dehydrated recently as the weather has been getting warmer. The patient does take hydrocodone orally, but does not have any narcotics in her intrathecal pump. Otherwise, feeling fairly good. The patient reports that she is improved by about 75%-80% with the pump itself, but still with some pain in the hips bilaterally in the low back. The patient reports the pain is a 9 on a scale of 10 at its worst over the past week, 5 on average, 5 at its least and is a 5 today. The patient reports her hip has been hurting when she is riding in the car, but she gets out and walks and it seems to decrease the pain after a few minutes. The patient reports generally it does not bother her more with walking or standing, but can with climbing stairs or putting all of her weight on one leg or the other and especially with sitting. The patient reports the pain is aching in the low back and hip, stabbing, can be severe at times with riding in a car. Otherwise, no new motor or sensory deficits. The low back pain is fairly well controlled with intrathecal pump and oral medicines as well. PHYSICAL EXAMINATION: VITAL SIGNS: The patient's blood pressure 144/69, pulse 76, respirations 16, temperature 98.1 degrees Fahrenheit, weight is 150 pounds. GENERAL: The patient is awake, alert, oriented, appropriate, very pleasant demeanor. HEENT: Shows normocephalic, atraumatic. Extraocular movements are intact and symmetrical. Oral cavity shows mucous membranes moist and pink. Dentition is intact. NECK: Shows anterior throat supple. CHEST: Shows breath sounds clear to auscultation bilaterally. No rales, rhonchi or wheezes auscultated. HEART: Shows S1, S2 clear. No murmurs auscultated. ABDOMEN: Soft, nontender, nondistended. BACK: Shows spine grossly in the midline, normal-appearing cervical lordotic curvature, mild increase in thoracic kyphosis and flattening of lumbar lordotic curvature with well-healed surgical scarring noted as well. ABDOMEN: The patient's abdomen shows easily palpable intrathecal pump in the right lower quadrant, which is nontender. EXTREMITIES: The patient's lower extremities show deep tendon reflexes at 1+ at the patellar and tendo calcaneus tendons. Motor exam is 5/5 with dorsiflexion, extension and equal. Peripheral pulses are 1+. No peripheral edema is noted in bilateral lower extremities. The patient is able to stand without significant pain in the hips, walking and standing on one leg or the other. It was slightly more tender on the right than the left in the lateral and posterior hip, but not into the groin. Options were discussed with the patient. The patient's old chart was reviewed as her current medication regimen updated. Current review of systems updated today as well and we will proceed with intrathecal pump refill and reprogramming under sterile prep and drape. Risks were discussed including but not limited to bleeding, infection, possibility of extravasation of intrathecal medication and resuscitative measures if necessary as well as poor results regarding pain control. The patient understands and wished to proceed. The patient will return to clinic in approximately 7 weeks for PTM programming and intrathecal pump programming and we will check the date on the PTM as it was reprogrammed as well. DIAGNOSES: Chronic pain syndrome with post-lumbar laminectomy syndrome and intrathecal pump therapy. PROCEDURE: Intrathecal pump refill and reprogramming with PTM reprogramming. Under sterile prep and drape using a 22-gauge noncutting Medtronic kit needle, pump was entered without difficulty with 4 mL of old medication withdrawn and discarded and 40 mL of new medication containing bupivacaine, clonidine and baclofen replaced in the pump. Needle was withdrawn. Sterile bandage was applied. Pump was then reprogrammed for volume settings and alarm settings as well as PTM settings. The patient will return to the clinic prior to 01/26/2020 which is refill date at maximum PTM use and will again keep an eye on the date as this changes with time and less than full PTM use. CONDITION AT DISCHARGE: Stable. The patient tolerated procedure well, had no complications. ALLISON LYNNE MD DR: MARSHAL/eusebio JOB#: [id number] / [id number]
== END | disposition home or self-care (01) ==
LOC: PNCL 10:47
PROVIDERS: ATTEND Anesthesiology
DX: Z09 Encounter for follow-up examination after completed treatment for conditions other than malignant neoplasm (principal); G89.4 Chronic pain syndrome; M40.56 Lordosis, unspecified, lumbar region; M40.204 Unspecified kyphosis, thoracic region
CPT/HCPCS: 95991

== ENCOUNTER → 2019-12-25 | Outpatient (CLI) | payer OTHER, MEDICAID ==
[2017-01-18 19:40] VITALS: BP 129/58
--- NOTE | 2019-12-25 17:53 | CARD ---
MR#: [id number] Date of Study: 12/25/2019 Ordering Physician: SAMARA SULLIVAN, Referring Physician: SAMARA SULLIVAN, Tech: Janet Villavicencio [facility] APPROVED REPORT EXAM: Two-dimensional and M-mode echocardiogram with Doppler and color Doppler. Other Information Quality : Good INDICATION Atrial Fibrillation 2D DIMENSIONS RVDd2.0 (2.9-3.5cm)Left Atrium(2D)3.2 (1.6-4.0cm) IVSd0.8 (0.7-1.1cm)Aortic Root(2D)3.2 (2.0-3.7cm) LVDd4.5 (3.9-5.9cm)LVOT Diameter2.1 (1.8-2.4cm) PWd0.9 (0.7-1.1cm)LVDs2.8 (2.5-4.0cm) FS (%) 37.3 %SV62.7 ml Aortic Valve AoV Peak Jorge.99.3cm/sAoV VTI19.8cm AO Peak GR.3.9mmHgLVOT Peak Jorge.98.2cm/s AO Mean GR.2mmHgAVA (VMAX)3.30cm2 MELANIE (VTI)3.70cm2 Mitral Valve MV E Fookahpj38.3cm/sMV DECEL [id number] MV A Qkwwvgrh416.1cm/sE/A Ratio0.7 Pulmonary Vein S1 Nsfzbuqy12.8cm/sD2 Tuxkikez13.9cm/s LEFT VENTRICLE The left ventricle is normal size. There is normal left ventricular wall thickness. Left ventricle sy stolic function is low normal. The Ejection Fraction is 50-55%. There is mild hypokinesis in the infe rior wall. Transmitral Doppler flow pattern is Grade I-abnormal relaxation pattern. RIGHT VENTRICLE The right ventricle is normal size. The right ventricular systolic function is normal. ATRIA The left atrium size is normal. The right atrium size is normal. The interatrial septum is intact wit h no evidence for an atrial septal defect or patent foramen ovale as noted on 2-D or Doppler imaging. AORTIC VALVE The aortic valve is calcified but opens well. Doppler and Color Flow revealed no significant aortic r egurgitation. There is no significant aortic valvular stenosis. MITRAL VALVE The mitral valve is calcified but opens well. There is no evidence of mitral valve prolapse. There is no mitral valve stenosis. Doppler and Color Flow revealed no mitral valve regurgitation noted. TRICUSPID VALVE The tricuspid valve is normal in structure and function. Doppler and Color Flow revealed no tricuspid valve regurgitation noted. There is no tricuspid valve stenosis. PULMONIC VALVE The pulmonary valve is normal in structure and function. There is no pulmonic valvular stenosis. GREAT VESSELS The aortic root is normal in size. The ascending aorta is normal in size. The IVC is normal in size a nd collapses >50% with inspiration. PERICARDIAL EFFUSION There is no evidence of significant pericardial effusion. Critical Notification Critical Value: No <Conclusion> The left ventricle is normal size. Left ventricle systolic function is low normal. The Ejection Fraction is 50-55%. There is mild hypokinesis in the inferior wall. Doppler and Color Flow revealed no significant aortic regurgitation. There is no significant aortic valvular stenosis. Doppler and Color Flow revealed no mitral valve regurgitation noted. Doppler and Color Flow revealed no tricuspid valve regurgitation noted. Signed by : Hemant Rider MD Electronically Approved : 12/25/2019 17:53:21
== END | disposition home or self-care (01) ==
LOC: ECHO 08:31
PROVIDERS: ATTEND Internal Medicine Cardiovascular Disease
DX: I08.0 Rheumatic disorders of both mitral and aortic valves (principal); I48.91 Unspecified atrial fibrillation
CPT/HCPCS: 93306

== ENCOUNTER → 2020-02-03 | Outpatient (CLI) | payer OTHER, MEDICAID ==
[2017-01-18 19:40] VITALS: BP 129/58
[~2020-02-03] MED LIST changes: +BACLOFEN IT ONE; +BUPIVACAINE MPF 0.75% 30 ML VIAL. ONE; +LIDOCAINE/PRILOCAINE TOPICAL CREAM 5GM TUBE. TP ONE; +[UNRECOGNIZED DRUG - OTHER] IT ONE; +cloNIDine PF 5,000 MCG/10 ML VIAL EP ONE
--- NOTE | 2020-02-03 10:18 | PDOC ---
Progress Note - Pain Clinic Date of Service: DOS: DATE: 02/03/20 TIME: 10:12 Diagnosis: Dx: Chronic pain syndrome Post lumbar laminectomy syndrome with intrathecal pump therapy History or Present Illness: HPI: 59-year-old female returns follow-up status post intrathecal pump therapy refill and reprogramming. Patient last seen December 09, 2019. Patient ports he doing very well been very stable regimen with her intrathecal pump working very well without any specific side effects. Patient ports her pain levels actually been less as she is recently completed moved to a new apartment and the activity has decreased causing the increase in pain. Patient rates her pain is 8 on scale 10 is worse over the past week 5 on average 5 at its least is a 5 today patient which is aching cramping in the low back bilateral lower extremities posterior gluteus posterior thighs lateral thighs posterior calves worse with walking standing changing positions better with sitting or laying down patient ports generally does not awaken her from sleep at night. Patient reports no new motor or sensory deficits no new bowel or bladder incontinence or other complaints. Physical Exam: VS: Blood pressure is 154/73 pulse 84 respirations 20 temperature 98.2 F height is 5 feet 8 inches weight is 150 pounds PE: PHYSICAL EXAMINATION: GENERAL: The patient is awake, alert, oriented, appropriate, very pleasant demeanor HEENT: Shows normocephalic, atraumatic. Extraocular movements are intact and symmetrical. Oral cavity: Mucous membranes moist and pink. NECK: Shows anterior throat supple without palpable lymphadenopathy noted. Swallow reflex symmetrical. CHEST: Shows normal on inspection. Breath sounds are clear bilaterally. HEART: Shows S1, S2 clear. No murmurs auscultated. ABDOMEN: Soft, nontender, nondistended. No palpable organomegaly is noted. No rebound or guarding demonstrated. Easily palpable intrathecal pump in the right lower quadrant with well-healed surgical scarring and nontender. BACK: Shows spine grossly in the midline. Normal-appearing cervical lordotic curvature. There is slightly increased thoracic kyphosis, some minor flattening of the lumbar lordotic curvature with well-healed surgical scarring noted. Lumbar paraspinous muscles show symmetrical on inspection, on palpation shows some moderate tenderness diffusely throughout the upper, middle and lower distribution of the paraspinous muscles bilaterally and also into the lower thoracic paraspinous musculature, firm and tender, but without specific trigger points, without radiation of pain. The patient has good rotational motion of the lumbar spine, both laterally as well as extension and flexion without significant difficulty. No tenderness over the spinous processes, sacrum or sacroiliac regions. EXTREMITIES: Lower extremities show deep tendon reflexes 1+ in the patellar and tendo calcaneus tendons. Motor exam is 4 on a scale of 5 with right dorsiflexion, extension, quadriceps and hamstring flexion and 4/5 on the left. Peripheral pulses are 1+ posterior tibial. No peripheral edema is noted bilaterally. Lower extremities are warm and dry to touch, equal in color and appearance. SKIN: Shows warm and dry, good turgor. No edema. No sores, rashes or bruising throughout. Procedure: Procedure: Options were discussed with the patient. Patient will chart reviews her current medication regimen updated current review of systems updated today as well. We will proceed with intrathecal pump refill and reprogramming and PTM reprogramming as well. Risks were discussed including but not limited to bleeding infection possibility of extravasation of intrathecal medication and sequelae including resuscitative measures if necessary as well as poor results regarding pain control. Patient understands wished to proceed. Patient will return to clinic prior to March 22 which will be her next refill date. Medication Injected: Med Injected: Under sterile prep and drape patient's abdomen was prepped over the intrathecal pump, using a 22-gauge noncutting bookletmobiletronic brand needle the pump was entered without difficulty. Aspiration showed removal of 1 cc of old medication which was discarded. 40 cc of new medication containing bupivacaine clonidine and baclofen was then replaced. Needle was withdrawn and sterile bandage was applied;pump was then reprogrammed for volume as well as alarm settings and PTM reprogrammed as well. Patient tolerated procedure well had no complications. Condition at Discharge: Condition at Discharge: Condition at discharge stable patient tolerated procedure well had no complications. ALLISON LYNNE MD Feb 03, 2020 10:18
== END | disposition home or self-care (01) ==
LOC: PNCL 08:49
PROVIDERS: ATTEND Anesthesiology
DX: M54.5 Low back pain (principal); G89.29 Other chronic pain; I10 Essential (primary) hypertension; E78.5 Hyperlipidemia, unspecified; E11.9 Type 2 diabetes mellitus without complications; F41.9 Anxiety disorder, unspecified; Z88.8 Allergy status to other drugs, medicaments and biological substances; Z79.82 Long term (current) use of aspirin; Z79.84 Long term (current) use of oral hypoglycemic drugs; Z79.899 Other long term (current) drug therapy; Z87.891 Personal history of nicotine dependence
CPT/HCPCS: 95991; J0475; J0735; J3490

== ENCOUNTER → 2020-03-30 | Outpatient (CLI) | payer OTHER, MEDICAID ==
[2017-01-18 19:40] VITALS: BP 129/58
[~2020-03-30] MED LIST changes: +AMLO-186 PO; -AMLO5TAB10 PO; -BACLOFEN IT ONE; -BUPIVACAINE MPF 0.75% 30 ML VIAL. ONE; -LIDOCAINE/PRILOCAINE TOPICAL CREAM 5GM TUBE. TP ONE; -[UNRECOGNIZED DRUG - OTHER] IT ONE; -cloNIDine PF 5,000 MCG/10 ML VIAL EP ONE
--- NOTE | 2020-03-30 10:48 | PDOC ---
Progress Note - Pain Clinic Date of Service: DOS: DATE: 03/30/20 TIME: 10:44 Diagnosis: Dx: Chronic pain syndrome Post lumbar laminectomy syndrome with intrathecal pump therapy History or Present Illness: HPI: 59-year-old female returns for follow-up status post intrathecal pump therapy with clonidine baclofen and bupivacaine. Patient reports feeling very well with very stable regimen pain is actually been less over the past few months than that previously patient reports still pain the low back bilateral lower extremities worse on the left than the right but tolerable and with the intrathecal pump much more manageable. Patient reports still cramping pain aching and dull in the low back radiating to lower extremities worse on the left the posterior lateral thighs lateral anterior thighs as well as across the low back itself. Patient reports that most days she is able to perform her usual activities with fairly good ease and comfort reports it wakes her from sleep still occasionally but not more than once every 5 or 6 hours. Patient reports that she is increase her distance walking and has been doing some household activities with greater ease and comfort after her last visit as well. Patient reports no new motor or sensory deficits no new bowel or bladder incontinence no side effects with medications. Rates the medication improvement overall at about 70%. Physical Exam: VS: Pressure is 137/65 pulse 85 respirations 20 temperature 97.7 F height is 5 feet 8 inches weight is 151 pounds PE: PHYSICAL EXAMINATION: GENERAL: The patient is awake, alert, oriented, appropriate, very pleasant demeanor HEENT: Shows normocephalic, atraumatic. Extraocular movements are intact and symmetrical. Oral cavity: Mucous membranes moist and pink. NECK: Shows anterior throat supple without palpable lymphadenopathy noted. Swallow reflex symmetrical. CHEST: Shows normal on inspection. Breath sounds are clear bilaterally, no rales rhonchi or wheezes. HEART: Shows S1, S2 clear. No murmurs auscultated. ABDOMEN: Soft, nontender, nondistended, obese. Easily palpable intrathecal pump in the right lower quadrant with well-healed surgical scarring. no palpable organomegaly is noted. No rebound or guarding demonstrated. BACK: Shows spine grossly in the midline. Normal-appearing cervical lordotic curvature. There is slightly increased thoracic kyphosis, some minor flattening of the lumbar lordotic curvature. Well-healed surgical scars noted in the midline. Lumbar paraspinous muscles show symmetrical on inspection, on palpation shows some moderate tenderness diffusely throughout the upper, middle and lower distribution of the paraspinous muscles bilaterally, but without specific trigger points, without radiation of pain. The patient has good rotational motion of the lumbar spine, both laterally as well as extension and flexion without significant difficulty. No tenderness over the spinous processes, sacrum or sacroiliac regions. EXTREMITIES: Lower extremities show deep tendon reflexes 1+ in the patellar and tendo calcaneus tendons. Motor exam is 4 on a scale of 5 with right dorsiflexion, extension, quadriceps and hamstring flexion and 4/5 on the left. Peripheral pulses are 1+ posterior tibial. No peripheral edema is noted bilaterally. Lower extremities are warm and dry to touch, equal in color and appearance. SKIN: Shows warm and dry, good turgor. No edema. No sores, rashes or bruising throughout. Procedure: Procedure: Options were discussed with the patient. Patient chart was reviewed as her current medication regimen updated current review of systems updated today as well. We will proceed with intrathecal pump refill and reprogramming as well as PTM reprogramming today. Risks were discussed including but not limited to bleeding infection possibility of extravasation of medication and possible resuscitative measures if necessary as well as poor results regarding pain control. Patient understands wishes to proceed. Patient return to clinic prior to May 16 which will be her next refill date at maximum use with the PTM. Medication Injected: Med Injected: Under sterile prep and drape patient's abdomen was prepped over the intrathecal pump, using a 22-gauge non-cutting Medtr[employer] brand needle the pump was entered without difficulty. Aspiration showed removal of 2 cc of old medication which was discarded. 40 cc of new medication containing bupivacaine clonidine and baclofen was then replaced. Needle was withdrawn and sterile bandage was applied;pump was then reprogrammed for volume as well as alarm settings and PTM reprogrammed as well. Patient tolerated procedure well had no complications. Condition at Discharge: Condition at Discharge: Edition at discharge is stable patient tolerated procedure well and had no complications. ALLISNO LNYNE MD Mar 30, 2020 10:48
== END ==
LOC: PNCL 10:01
PROVIDERS: ATTEND Anesthesiology
DX: G89.4 Chronic pain syndrome (principal); I10 Essential (primary) hypertension; E11.9 Type 2 diabetes mellitus without complications; E78.5 Hyperlipidemia, unspecified; F32.9 Major depressive disorder, single episode, unspecified; Z88.8 Allergy status to other drugs, medicaments and biological substances; Z79.82 Long term (current) use of aspirin; Z79.899 Other long term (current) drug therapy; Z87.891 Personal history of nicotine dependence; Z79.84 Long term (current) use of oral hypoglycemic drugs; Z82.49 Family history of ischemic heart disease and other diseases of the circulatory system; Z83.3 Family history of diabetes mellitus
CPT/HCPCS: 95991

== ENCOUNTER → 2020-05-22 | Outpatient (CLI) | payer OTHER, MEDICAID ==
[2017-01-18 19:40] VITALS: BP 129/58
[~2020-05-22] MED LIST changes: +BACLOFEN IT ONE; +BUPIVACAINE MPF 0.75% 30 ML VIAL. ONE; +LIDOCAINE/PRILOCAINE TOPICAL CREAM 5GM TUBE. TP ONE; +LORA-169 PO; -LORA10TA55 PO; +[UNRECOGNIZED DRUG - OTHER] IT ONE; +cloNIDine PF 5,000 MCG/10 ML VIAL EP ONE
--- NOTE | 2020-05-22 09:40 | PDOC ---
Progress Note - Pain Clinic Date of Service: DOS: DATE: 05/22/20 TIME: 09:35 Diagnosis: Dx: Chronic pain syndrome Post lumbar laminectomy syndrome with intrathecal pump therapy History or Present Illness: HPI: 59-year-old female returns follow-up status post thecal pump therapy with baclofen clonidine and bupivacaine. Patient reports she is doing very well is been a very stable regimen with the medication and her pump reports about a 65 to 70% improvement overall still some significant pain in the low back but manageable with the therapy thus far. Reports still some cramping pain described as aching and dull in the low back itself but no significant radiation to lower extremities at this time. Patient again reports no side effects with her intrathecal pump therapies. Patient reports increased activity does increase the pain to some extent that she can usually gauge this and avoid most exacerbating factors. Patient reports he is sleeping well at night it wakes her from sleep occasionally but not every night maybe once every 6 hours when it does she does reposition and get back to sleep. Patient reports her pain is a 7 on scale 10 is worse over the past week 5 on average 5 its least is a 5 today. Patient reports no new motor or sensory deficits no new bowel or bladder consult complaints. Physical Exam: VS: Blood pressure is 135/80 pulse 93 respirations 18 temperature 90.1 F height is 5 foot 8 inches weight is 149 pounds PE: PHYSICAL EXAMINATION: GENERAL: The patient is awake, alert, oriented, appropriate, very pleasant demeanor HEENT: Shows normocephalic, atraumatic. Extraocular movements are intact and symmetrical. NECK: Shows anterior throat supple without palpable lymphadenopathy noted. Swallow reflex symmetrical. CHEST: Shows normal on inspection. Breath sounds are clear bilaterally, distant but no rales or rhonchi. HEART: Shows S1, S2 clear. No murmurs auscultated. ABDOMEN: Soft, nontender, nondistended, obese. No palpable organomegaly is noted. No rebound or guarding demonstrated. Easily palpable intrathecal pump is noted in the right lower quadrant with well-healed surgical scarring and is nontender with palpation. BACK: Shows spine grossly in the midline. Normal-appearing cervical lordotic curvature. There is increased thoracic kyphosis, some minor flattening of the lumbar lordotic curvature. Well-healed surgical scar is again noted. Lumbar paraspinous muscles show symmetrical on inspection, on palpation shows some moderate tenderness diffusely throughout the upper, middle and lower distribution of the paraspinous muscles without specific trigger points, without radiation of pain. The patient has good rotational motion of the lumbar spine, both laterally as well as extension and flexion without significant difficulty. No tenderness over the spinous processes, sacrum or sacroiliac regions. EXTREMITIES: Lower extremities show deep tendon reflexes 1+ in the patellar and tendo calcaneus tendons. Motor exam is 4 on a scale of 5 with right dorsiflexion, extension, quadriceps and hamstring flexion and 4/5 on the left. Peripheral pulses are 1+ posterior tibial. No peripheral edema is noted bilaterally. Lower extremities are warm and dry to touch, equal in color and appearance. SKIN: Shows warm and dry, good turgor. No edema. No sores, rashes or bruising throughout. Procedure: Procedure: Options were discussed with the patient. Patient will chart reviews her current medication regimen updated current review of systems updated today as well. We will refill patient's intrathecal pump and reprogram with volume as well as alarm settings and PTM reprogramming. Patient will return to clinic for refill scheduled July 08, 2020, and we will monitor this with her PTM as a date may change with demand use. Medication Injected: Med Injected: After application of topical anesthesia, and under sterile prep and drape, patient's abdomen was prepped over the intrathecal pump, using a 22-gauge non-cutting Medtronic brand needle, the pump was entered without difficulty. Aspiration showed removal of 4 cc of old medication which was discarded. 40 cc of new medication containing bupivacaine clonidine and baclofen was then replaced. Needle was withdrawn and sterile bandage was applied;pump was then reprogrammed for volume as well as alarm settings and PTM reprogrammed as well. Patient tolerated procedure well had no complications. Condition at Discharge: Condition at Discharge: Condition at discharge stable, patient on the procedure well had no complications. ALLISON LYNNE MD May 22, 2020 09:40
== END | disposition home or self-care (01) ==
LOC: PNCL 08:59
PROVIDERS: ATTEND Anesthesiology
DX: G89.4 Chronic pain syndrome (principal); M96.1 Postlaminectomy syndrome, not elsewhere classified; I11.0 Hypertensive heart disease with heart failure; I50.9 Heart failure, unspecified; E78.00 Pure hypercholesterolemia, unspecified; J43.9 Emphysema, unspecified; K21.9 Gastro-esophageal reflux disease without esophagitis; E66.9 Obesity, unspecified; G47.30 Sleep apnea, unspecified; E11.9 Type 2 diabetes mellitus without complications; M19.90 Unspecified osteoarthritis, unspecified site; F41.9 Anxiety disorder, unspecified; F32.9 Major depressive disorder, single episode, unspecified; Z79.82 Long term (current) use of aspirin; Z79.4 Long term (current) use of insulin; Z79.899 Other long term (current) drug therapy; Z98.890 Other specified postprocedural states; Z87.891 Personal history of nicotine dependence; Z91.041 Radiographic dye allergy status; Z88.6 Allergy status to analgesic agent; Z88.8 Allergy status to other drugs, medicaments and biological substances
CPT/HCPCS: 95991; J0475; J0735; J3490

== ENCOUNTER → 2020-06-11 | Outpatient (CLI) | payer OTHER, MEDICAID ==
[2017-01-18 19:40] VITALS: BP 129/58
[~2020-06-11] MED LIST changes: +ACET325T21 PO; -BACLOFEN IT ONE; -BUPIVACAINE MPF 0.75% 30 ML VIAL. ONE; +BUPR150T21 PO; -BUPR150T6 PO; +BUPR300T3 PO; +INSU100V35 SQ; -LIDOCAINE/PRILOCAINE TOPICAL CREAM 5GM TUBE. TP ONE; -OMEP40CA45 PO; +OMEP40CA7 PO; -[UNRECOGNIZED DRUG - OTHER] IT ONE; -cloNIDine PF 5,000 MCG/10 ML VIAL EP ONE
--- NOTE | 2020-06-11 10:45 | RAD ---
EXAM: Right hip, 2 views. HISTORY: Pain. COMPARISON: None. FINDINGS: 2 views of the right hip are obtained. There is no acute fracture, dislocation or subluxati on. There is instrumented fusion and laminectomy decompression at the visualized lumbar levels. There is a generator within the right flank with leads extending cephalad beyond the [id number]. IMPRESSION: No acute osseous finding. Electronically signed by: Diana Osei MD (06/11/2020 10:43 AM) [id number]
== END ==
LOC: RAD 09:47
PROVIDERS: ATTEND Family Medicine
DX: M25.551 Pain in right hip (principal); M43.26 Fusion of spine, lumbar region
CPT/HCPCS: 73502

== ENCOUNTER → 2020-07-15 | Outpatient (CLI) | payer OTHER, MEDICAID ==
[2017-01-18 19:40] VITALS: BP 129/58
[~2020-07-15] MED LIST changes: -ACET325T21 PO; +BACLOFEN IT ONE; +BUPIVACAINE MPF 0.75% 30 ML VIAL. ONE; -BUPR150T21 PO; +BUPR150T7 PO; -BUPR300T3 PO; -INSU100V35 SQ; +OMEP40CA45 PO; -OMEP40CA7 PO; +[UNRECOGNIZED DRUG - OTHER] IT ONE; +cloNIDine PF 5,000 MCG/10 ML VIAL EP ONE
--- NOTE | 2020-07-15 09:42 | PDOC4 ---
PROCEDURE Procedure Patient was consented for intrathecal pump refill and reprogramming. Risks were discussed including but not limited to bleeding infection possibility of extravasation of medication as well as poor results regarding pain control. Patient understands wished to proceed. Under sterile prep and drape patient's abdomen was prepped over the intrathecal pump, using a 22-gauge noncutting [employer] brand needle the pump was entered without difficulty. Aspiration showed removal of 4 cc of old medication which was discarded. 40 cc of new medication containing bupivacaine clonidine and baclofen was then replaced. Needle was withdrawn and sterile bandage was applied;pump was then reprogrammed for volume as well as alarm settings and PTM reprogrammed as well. Patient tolerated procedure well had no complications. ALLISON LYNNE MD Jul 15, 2020 09:42
--- NOTE | 2020-07-15 09:42 | PDOC ---
Progress Note - Pain Clinic Date of Service: DOS: DATE: 07/15/20 TIME: 09:38 Diagnosis: Dx: Chronic pain syndrome Post lumbar laminectomy syndrome History or Present Illness: HPI: 60-year-old female returns to follow-up status post intrathecal pump therapy with clonidine bupivacaine and baclofen. Patient reports doing very well with very stable regimen complains of some pain in the low back on the left side greater than the right but manageable. Patient reports that this time it is cramping and stabbing the low back and left leg some radiation into the bilateral lower extremities as well as the low back itself patient ports pain is aching and sharp and dull at times with activity is worse with walking standing better with sitting or laying down generally is not awaken her from sleep at night but can and has over the past few weeks about every 6 hours on the left side. Patient reports no new motor or sensory deficits rates her pain is a 9 on scale 10 is worse in the past week 7 on average 6 its least and is a 6 today. Patient reports no bowel or bladder incontinence or other concerns no side effects with the intrathecal pump medication currently. Physical Exam: VS: Blood pressure is 156/93 pulse 87 respirations 18 temperature 98.1 F is 5 feet 8 inches weight is 151 pounds PE: PHYSICAL EXAMINATION: GENERAL: The patient is awake, alert, oriented, appropriate, very pleasant demeanor HEENT: Shows normocephalic, atraumatic. Extraocular movements are intact and symmetrical. Oral cavity: Mucous membranes moist and pink. Dentition is intact. NECK: Shows anterior throat supple without palpable lymphadenopathy noted. Swallow reflex symmetrical. CHEST: Shows normal on inspection. Breath sounds are clear bilaterally, no rale s rhonchi or wheezes. HEART: Shows S1, S2 clear. No murmurs auscultated. ABDOMEN: Soft, nontender, nondistended, obese. Easily palpable intrathecal pump is noted in the right lower quadrant with well-healed surgical scarring present. No palpable organomegaly is noted. No rebound or guarding demonstrated. BACK: Shows spine grossly in the midline. Normal-appearing cervical lordotic curvature. There is slightly increased thoracic kyphosis, some minor flattening of the lumbar lordotic curvature. Lumbar paraspinous muscles show symmetrical on inspection, on palpation shows some moderate tenderness diffusely throughout the upper, middle and lower distribution of the paraspinous muscles without specific trigger points, without radiation of pain. The patient has good rotational motion of the lumbar spine, both laterally as well as extension and flexion without significant difficulty. No tenderness over the spinous processes, moderate tenderness over the left posterior superior iliac spine and sacroiliac region but nontender on the right. EXTREMITIES: Lower extremities show deep tendon reflexes 1+ in the patellar and tendo calcaneus tendons. Motor exam is 4 on a scale of 5 with right dorsiflexion, extension, quadriceps and hamstring flexion and 4/5 on the left. Peripheral pulses are 1+ posterior tibial. No peripheral edema is noted bilaterally. Lower extremities are warm and dry to touch, equal in color and appearance. SKIN: Shows warm and dry, good turgor. No edema. No sores, rashes or bruising throughout. Procedure: Procedure: Options were discussed with the patient. Patient chart reviewed as her current medication regimen updated current review of systems updated today as well. We will refill patient's intrathecal pump with reprogramming for volume as well as alarm settings and PTM reprogramming. Risks were discussed including but not limited to bleeding infection possibility of extravasation of medication as well as poor results regarding pain control. Patient understands wished to proceed. Patient return to clinic at or prior to August 31 which is her next refill date. Medication Injected: Med Injected: Under sterile prep and drape patient's abdomen was prepped over the intrathecal pump, using a 22-gauge noncutting [employer] brand needle the pump was entered without difficulty. Aspiration showed removal of 4 cc of old medication which was discarded. 40 cc of new medication containing bupivacaine clonidine and baclofen was then replaced. Needle was withdrawn and sterile bandage was applied;pump was then reprogrammed for volume as well as alarm settings and PTM reprogrammed as well. Patient tolerated procedure well had no complications. Condition at Discharge: Condition at Discharge: Condition at discharge stable, patient tolerated procedure well and had no complications. ALLISON LYNNE MD Jul 15, 2020 09:42
== END | disposition home or self-care (01) ==
LOC: PNCL 09:05
PROVIDERS: ATTEND Anesthesiology
DX: G89.4 Chronic pain syndrome (principal); M96.1 Postlaminectomy syndrome, not elsewhere classified; I11.0 Hypertensive heart disease with heart failure; I50.9 Heart failure, unspecified; K21.9 Gastro-esophageal reflux disease without esophagitis; E78.00 Pure hypercholesterolemia, unspecified; M19.90 Unspecified osteoarthritis, unspecified site; E11.9 Type 2 diabetes mellitus without complications; F41.9 Anxiety disorder, unspecified; F32.9 Major depressive disorder, single episode, unspecified; E66.9 Obesity, unspecified; Z87.891 Personal history of nicotine dependence; Z79.899 Other long term (current) drug therapy; Z98.890 Other specified postprocedural states; Z79.82 Long term (current) use of aspirin; Z79.4 Long term (current) use of insulin; Z82.49 Family history of ischemic heart disease and other diseases of the circulatory system; Z91.041 Radiographic dye allergy status; Z88.8 Allergy status to other drugs, medicaments and biological substances
CPT/HCPCS: 95991; J0475; J0735; J3490

== ENCOUNTER → 2020-09-04 | Outpatient (CLI) | payer OTHER, MEDICAID ==
[2017-01-18 19:40] VITALS: BP 129/58
[~2020-09-04] MED LIST changes: +BUPR150T21 PO; -BUPR150T7 PO
--- NOTE | 2020-09-04 09:39 | PDOC ---
Progress Note - Pain Clinic Date of Service: DOS: DATE: 09/04/20 TIME: 09:35 Diagnosis: Dx: Chronic pain syndrome Post lumbar laminectomy syndrome History or Present Illness: HPI: 60-year-old female returns for follow-up status post intrathecal pump therapy with bupivacaine clonidine and baclofen. Patient reports has been doing fairly well with this with a good stable regimen and about 70 to 75% improvement with the medication regimen thus far. Patient reports some pain in the low back the bilateral lower extremities mostly on the left than the right but manageable with the current regimen patient has a PTM device with the pump which is working well for boluses also. Patient reports no new motor or sensory deficits no new bowel or bladder incontinence rates the pain is a seven on scale 10 is worse over the past week five on average four to sleep and is a five today patient was aching and dull in the low back cramping at times radiating on and off in intensity though patient reports it wakes her from sleep occasionally but not every night if it does is about a 4 to 5 hours at the most she can usually reposition and get back to sleep. Patient reports no side effects with medication no new findings no new bowel or bladder incontinence or other deficits or complaints. Physical Exam: VS: Blood pressure is 143/65 pulse 76 respirations 16 temperature is 97.6 three Fahrenheit weight is 156 pounds PE: PHYSICAL EXAMINATION: GENERAL: The patient is awake, alert, oriented, appropriate, very pleasant demeanor HEENT: Shows normocephalic, atraumatic. Extraocular movements are intact and symmetrical. Oral cavity: Mucous membranes moist and pink. NECK: Shows anterior throat supple without palpable lymphadenopathy noted. Swallow reflex symmetrical. CHEST: Shows normal on inspection. Breath sounds are clear bilaterally, no rales or rhonchi auscultated. HEART: Shows S1, S2 clear. No murmurs auscultated. ABDOMEN: Soft, nontender, nondistended, obese. No palpable organomegaly is not ed. Easily palpable intrathecal pump in the right lower quadrant with well- healed surgical scar is noted which is nontender. BACK: Shows spine grossly in the midline. Normal-appearing cervical lordotic curvature. There is increased thoracic kyphosis, some flattening of the lumbar lordotic curvature. Lumbar paraspinous muscles show symmetrical on inspection, on palpation shows some moderate tenderness diffusely throughout the upper, middle and lower distribution of the paraspinous muscles, but without specific trigger points, without radiation of pain. The patient has good rotational motion of the lumbar spine, both laterally as well as extension and flexion without significant difficulty. Moderate tenderness over the left posterior superior iliac spine and left sacroiliac region but only mild tenderness on the right. EXTREMITIES: Lower extremities show deep tendon reflexes 1+ in the patellar and tendo calcaneus tendons. Motor exam is four on a scale of 5 with right dorsiflexion, extension, quadriceps and hamstring flexion and four/5 on the left. Peripheral pulses are 1+ posterior tibial. No peripheral edema is noted bilaterally. SKIN: Shows warm and dry, good turgor. No edema. No sores, rashes or bruising throughout. Procedure: Procedure: Options discussed with the patient. Patient's old chart was reviewed as her current medication regimen updated current review of systems updated today as well. We will proceed with the intrathecal pump refill and reprogramming with PTM programming as well. Risks are discussed including but not limited to bleeding infection possibility of intravascular injection sequelae as extravasation of pump refill contents and poor results regarding pain control. Patient understands wished to proceed. Patient return to clinic prior to October 21 which is her next refill date. Medication Injected: Med Injected: Under sterile prep and drape patient's abdomen was prepped over the intrathecal pump, using a 22-gauge noncutting [employer] brand needle the pump was entered without difficulty. Aspiration showed removal of 5 cc of old medication which was discarded. 40 cc of new medication containing bupivacaine clonidine and baclofen was then replaced. Needle was withdrawn and sterile bandage was applied;pump was then reprogrammed for volume as well as alarm settings and PTM reprogrammed as well. Patient tolerated procedure well had no complications. Condition at Discharge: Condition at Discharge: Condition at discharge is stable, patient tolerated procedure well and had no complications. ALLISON LYNNE MD Sep 04, 2020 09:39
--- NOTE | 2020-09-04 09:40 | PDOC4 ---
PROCEDURE Procedure Patient was consented for intrathecal pump refill and reprogramming. Risks were discussed including but not limited to bleeding infection possibility of extravasation of medication intra vascular injection and sequelae, extravasation of pump medication and resuscitative measures necessary as well as poor results regarding pain control. Patient understands wished to proceed. Under sterile prep and drape patient's abdomen was prepped over the intrathecal pump, using a 22-gauge noncutting [employer] brand needle the pump was entered without difficulty. Aspiration showed removal of 5 cc of old medication which was discarded. 40 cc of new medication containing bupivacaine clonidine and baclofen was then replaced. Needle was withdrawn and sterile bandage was applied;pump was then reprogrammed for volume as well as alarm settings and PTM reprogrammed as well. Patient tolerated procedure well had no complications. ALLISON LYNNE MD Sep 04, 2020 09:40
== END | disposition home or self-care (01) ==
LOC: PNCL 09:00
PROVIDERS: ATTEND Anesthesiology
DX: G89.4 Chronic pain syndrome (principal); M96.1 Postlaminectomy syndrome, not elsewhere classified; I11.0 Hypertensive heart disease with heart failure; I50.9 Heart failure, unspecified; E78.00 Pure hypercholesterolemia, unspecified; K21.9 Gastro-esophageal reflux disease without esophagitis; E66.9 Obesity, unspecified; M19.90 Unspecified osteoarthritis, unspecified site; F41.9 Anxiety disorder, unspecified; F32.9 Major depressive disorder, single episode, unspecified; J43.9 Emphysema, unspecified; E11.9 Type 2 diabetes mellitus without complications; Z79.899 Other long term (current) drug therapy; Z98.890 Other specified postprocedural states; Z79.82 Long term (current) use of aspirin; Z79.84 Long term (current) use of oral hypoglycemic drugs; Z87.891 Personal history of nicotine dependence; Z91.041 Radiographic dye allergy status; Z88.8 Allergy status to other drugs, medicaments and biological substances
CPT/HCPCS: 95991; J0475; J0735; J3490

== ENCOUNTER → 2020-10-26 | Outpatient (CLI) | payer OTHER, MEDICAID ==
[2017-01-18 19:40] VITALS: BP 129/58
[~2020-10-26] MED LIST changes: +ACET325T21 PO; +BUPR300T3 PO; +INSU100V35 SQ
--- NOTE | 2020-10-26 10:34 | PDOC ---
Progress Note - Pain Clinic Date of Service: DOS: DATE: 10/26/20 TIME: 10:31 Diagnosis: Dx: Chronic pain syndrome Post lumbar laminectomy syndrome History or Present Illness: HPI: 60-year-old female returns for follow-up status post intrathecal pump therapy with bupivacaine clonidine and baclofen. Patient reports she is doing very well has been on very stable regimen about 7075% improvement with the medications and intrathecal pump. Patient reports of some pain in the low back which has been slightly increased recently due to increased activity and taking care of her grandson more days than she is used to. Patient reports that he still does well at night generally does not awaken her from sleep although she is had a lot of emotional stress the pain is been increased to some extent and she attributed to that as well. Patient rates her pain is a 10 on scale 10 is worse over the past week 5 on average 5 its least is a 5 today patient reports her pain in the low back bilateral lower extremities mostly in the posterior gluteus lateral thigh on the left side describes aching and dull also cramping in the back some on the right side as well which is sharp and stabbing can be severe with extended weightbearing but better with sitting or laying down. Patient reports no new motor or sensory deficits no new side effects with the medication in the pump as well. Physical Exam: VS: Blood pressure is 152/85 pulse 77 respirations 18 temperature 97.9 F weight is 144 pounds PE: PHYSICAL EXAMINATION: GENERAL: The patient is awake, alert, oriented, appropriate, very pleasant demeanor HEENT: Shows normocephalic, atraumatic. Extraocular movements are intact and symmetrical. Oral cavity: Mucous membranes moist and pink. NECK: Shows anterior throat supple without palpable lymphadenopathy noted. Swallow reflex symmetrical. CHEST: Shows normal on inspection. Breath sounds are clear bilaterally. HEART: Shows S1, S2 clear. No murmurs auscultated. ABDOMEN: Soft, nontender, nondistended, obese. Easily palpable intrathecal pump with well-healed surgical scars noted in the right lower quadrant which is mobile and nontender. BACK: Shows spine grossly in the midline. Normal-appearing cervical lordotic curvature. There is slightly increased thoracic kyphosis, some minor flattening of the lumbar lordotic curvature. Well-healed surgical scars noted in the midline. Lumbar paraspinous muscles show symmetrical on inspection, on palpation shows some moderate tenderness diffusely throughout the upper, middle and lower distribution of the paraspinous muscles, but without specific trigger points, without radiation of pain. The patient has good rotational motion of the lumbar spine, both laterally as well as extension and flexion without significant difficulty. No tenderness over the spinous processes, sacrum or sacroiliac regions. EXTREMITIES: Lower extremities show deep tendon reflexes 1+ in the patellar and tendo calcaneus tendons. Motor exam is 4 on a scale of 5 with right dorsiflexion, extension, quadriceps and hamstring flexion and 4/5 on the left. Peripheral pulses are 1+ posterior tibial. No peripheral edema is noted bilaterally. Lower extremities are warm and dry to touch, equal in color and appearance. SKIN: Shows warm and dry, good turgor. No edema. No sores, rashes or bruising throughout. Procedure: Procedure: Options were discussed with patient. Patient chart was reviewed as her current medication regimen updated current review of systems updated today as well. We will refill patient's intrathecal pump today with reprogramming to alarm volumes as well as total pump volume. Risks are discussed including not limited to bleeding infection possibility of intravascular injection and sequelae extravasation of medication and resuscitative measures necessary as well as poor results regarding pain control. Patient understands wished to proceed. Patient will return to clinic prior to refill date as December 13, 2020, or sooner as necessary. Medication Injected: Med Injected: Under sterile prep and drape patient's abdomen was prepped over the intrathecal pump, using a 22-gauge noncutting [employer] brand needle the pump was entered without difficulty. Aspiration showed removal of 1 cc of old medication which was discarded. 40 cc of new medication containing bupivacaine clonidine and baclofen was then replaced. Needle was withdrawn and sterile bandage was applied;pump was then reprogrammed for volume as well as alarm settings and PTM reprogrammed as well. Patient tolerated procedure well had no complications. Condition at Discharge: Condition at Discharge: Condition at discharge stable, patient already procedure well and had no complications. ALLISON LYNNE MD October 26, 2020 10:34
--- NOTE | 2020-10-26 10:35 | PDOC4 ---
PROCEDURE Procedure Patient was consented for intrathecal pump refill and reprogramming. Risk were discussed including not limited to bleeding infection possibility of extravasation of medication and resuscitative measures necessary as well as poor results regarding pain control. Patient understands wished to proceed. Under sterile prep and drape patient's abdomen was prepped over the intrathecal pump, using a 22-gauge noncutting [employer] brand needle the pump was entered without difficulty. Aspiration showed removal of 6 cc of old medication which was discarded. 40 cc of new medication containing bupivacaine clonidine and baclofen was then replaced. Needle was withdrawn and sterile bandage was applied;pump was then reprogrammed for volume as well as alarm settings and PTM reprogrammed as well. Patient tolerated procedure well had no complications. ALLISON LYNNE MD October 26, 2020 10:35
== END | disposition home or self-care (01) ==
LOC: PNCL 09:44
PROVIDERS: ATTEND Anesthesiology
DX: G89.4 Chronic pain syndrome (principal); M96.1 Postlaminectomy syndrome, not elsewhere classified; I11.0 Hypertensive heart disease with heart failure; I50.9 Heart failure, unspecified; E78.00 Pure hypercholesterolemia, unspecified; M19.90 Unspecified osteoarthritis, unspecified site; E11.9 Type 2 diabetes mellitus without complications; J43.9 Emphysema, unspecified; K21.9 Gastro-esophageal reflux disease without esophagitis; E66.9 Obesity, unspecified; F41.9 Anxiety disorder, unspecified; F32.9 Major depressive disorder, single episode, unspecified; Z79.82 Long term (current) use of aspirin; Z79.84 Long term (current) use of oral hypoglycemic drugs; Z79.899 Other long term (current) drug therapy; Z87.891 Personal history of nicotine dependence; Z72.89 Other problems related to lifestyle; Z98.890 Other specified postprocedural states; Z88.6 Allergy status to analgesic agent; Z91.041 Radiographic dye allergy status; Z88.8 Allergy status to other drugs, medicaments and biological substances
CPT/HCPCS: 95991; J0475; J0735; J3490

== ENCOUNTER → 2020-12-21 | Outpatient (CLI) | payer OTHER, MEDICAID ==
[2020-10-28 11:36] VITALS: BP 155/79
[~2020-12-21] MED LIST changes: +LIDOCAINE/PRILOCAINE TOPICAL CREAM 5GM TUBE. TP ONE; -OMEP40CA45 PO; +OMEP40CA7 PO
--- NOTE | 2020-12-21 10:15 | PDOC ---
Progress Note - Pain Clinic Date of Service: DOS: DATE: 12/21/20 TIME: 10:12 Diagnosis: Dx: Chronic pain syndrome Post lumbar laminectomy syndrome History or Present Illness: HPI: 60-year-old female returns for follow-up status post intrathecal pump management with approximate 75% improvement with her pain with the pump itself patient reports also pain low back and bilateral lower extremity as well as the mid back and scribes aching and dull and cramping but fairly well controlled with the medication and the pump at this time and her PTM after she reports seems to working just fine as she can tell a difference after the PTM boluses given. Patient reports a new finding of attempted overdose with tricyclic's about 2 months ago she was hospitalized for this patient reports he is getting some counseling and now and she is feeling much better than she did at that time. Patient is feeling overwhelmed with her responsibilities at home taking care of her grandson more specifically. Patient reports no new side effect with medication and overall doing fairly well sleeping most nights about 5 hours before the pain awakens her in her low back and hips. Physical Exam: VS: Blood pressure is 118/71 pulse 67 respirations 18 temperature 98.9 F height 5 feet 8 inches weight 147 pounds PE: PHYSICAL EXAMINATION: GENERAL: The patient is awake, alert, oriented, appropriate, very pleasant in demeanor, patient in good spirits today. HEENT: Shows normocephalic, atraumatic. Extraocular movements are intact and symmetrical. Dentition is intact. NECK: Shows anterior throat supple without palpable lymphadenopathy noted. Swallow reflex symmetrical. CHEST: Shows normal on inspection. Breath sounds are clear bilaterally, no rales or rhonchi or wheezes auscultated. HEART: Shows S1, S2 clear. No murmurs auscultated. ABDOMEN: Soft, nontender, nondistended, obese. Easily palpable intrathecal pump in the right lower quadrant with well-healed surgical scar BACK: Shows spine grossly in the midline. Normal-appearing cervical lordotic curvature. There is slightly increased thoracic kyphosis, some flattening of the lumbar lordotic curvature with well-healed surgical scar. Lumbar paraspinous muscles show symmetrical on inspection, on palpation shows some moderate tenderness diffusely throughout the upper, middle and lower distribution of the paraspinous muscles, but without specific trigger points, without radiation of pain. The patient has good rotational motion of the lumbar spine, both laterally as well as extension and flexion without significant difficulty. No tenderness over the spinous processes, sacrum or sacroiliac reg ions. EXTREMITIES: Lower extremities show deep tendon reflexes 1+ in the patellar and tendo calcaneus tendons. Motor exam is 4 on a scale of 5 with right dorsiflexion, extension, quadriceps and hamstring flexion and 4/5 on the left. Peripheral pulses are 1+ posterior tibial. No peripheral edema is noted bilaterally. Lower extremities are warm and dry. SKIN: Shows warm and dry, good turgor. No edema. No sores, rashes or bruising throughout. Procedure: Procedure: Options were discussed with patient. Patient chart reviews her current medication regimen updated current review of systems updated today as well. We will refill patient's intrathecal pump today with reprogram as well as PTM reprogramming. Risk were discussed including but not limited to bleeding infection possibility of extravasation of medicine and possible resuscitative measures if necessary as well as poor results regarding pain control. Patient understands wished to proceed. Medication Injected: Med Injected: Under sterile prep and drape patient's abdomen was prepped over the intrathecal pump, using a 22-gauge noncutting [employer] brand needle the pump was entered without difficulty. Aspiration showed removal of 3 cc of old medication which was discarded. 40 cc of new medication containing bupivacaine clonidine and baclofen was then replaced. Needle was withdrawn and sterile bandage was applied;pump was then reprogrammed for volume as well as alarm settings and PTM reprogrammed as well. Patient tolerated procedure well had no complications. Condition at Discharge: Condition at Discharge: Condition at discharge stable, patient already procedure well and had no complications. ALLISON LYNNE MD Dec 21, 2020 10:15
--- NOTE | 2020-12-21 10:16 | PDOC4 ---
Procedure Note: Procedure Note: Patient was consented for intrathecal pump refill and reprogramming as well as PTM reprogramming. Risk were discussed including but not limited to bleeding infection possible if extravasation of medication and possible resuscitative measures as necessary as well as poor results regarding pain control. Patient understands wished to proceed. Under sterile prep and drape patient's abdomen was prepped over the intrathecal pump, using a 22-gauge noncutting [employer] brand needle the pump was entered without difficulty. Aspiration showed removal of 3 cc of old medication which was discarded. 40 cc of new medication containing bupivacaine clonidine and baclofen was then replaced. Needle was withdrawn and sterile bandage was applied;pump was then reprogrammed for volume as well as alarm settings and PTM reprogrammed as well. Patient tolerated procedure well had no complications. ALLISON LYNNE MD Dec 21, 2020 10:16
== END | disposition home or self-care (01) ==
LOC: PNCL 08:29
PROVIDERS: ATTEND Anesthesiology
DX: G89.4 Chronic pain syndrome (principal); M96.1 Postlaminectomy syndrome, not elsewhere classified; I11.0 Hypertensive heart disease with heart failure; I50.9 Heart failure, unspecified; J43.9 Emphysema, unspecified; E66.9 Obesity, unspecified; K21.9 Gastro-esophageal reflux disease without esophagitis; M19.90 Unspecified osteoarthritis, unspecified site; G47.30 Sleep apnea, unspecified; F41.9 Anxiety disorder, unspecified; F32.9 Major depressive disorder, single episode, unspecified; Z87.891 Personal history of nicotine dependence; Z79.82 Long term (current) use of aspirin; Z79.4 Long term (current) use of insulin; Z79.899 Other long term (current) drug therapy; Z98.890 Other specified postprocedural states; Z91.041 Radiographic dye allergy status; Z88.8 Allergy status to other drugs, medicaments and biological substances; Z88.6 Allergy status to analgesic agent
CPT/HCPCS: 62370; J0475; J0735; J3490

== ENCOUNTER 2021-01-31 14:30 | Emergency (ER) | payer OTHER, MEDICAID ==
[~2021-01-31] VITALS: Ht 172.7 cm; Wt 66.0 kg
[~2021-01-31 14:30] MED LIST changes: -BACLOFEN IT ONE; -BUPIVACAINE MPF 0.75% 30 ML VIAL. ONE; -LIDOCAINE/PRILOCAINE TOPICAL CREAM 5GM TUBE. TP ONE; -[UNRECOGNIZED DRUG - OTHER] IT ONE; -cloNIDine PF 5,000 MCG/10 ML VIAL EP ONE
[2021-01-31 15:45] LABS: BASO # 0.1 x10^3/uL (0.0-0.2); BASO % 1 % (0-3); EOS # 0.2 x10^3/uL (0.0-0.7); EOS % 1 % (0-3); HEMATOCRIT 41.2 % (36.0-47.0); HEMOGLOBIN 14.5 g/dL (12.0-15.5); LYMPH # 2.1 x10^3/uL (1.0-4.8); LYMPH % 14 % (24-48); MEAN CORPUSCULAR HEMOGLOBIN 30 pg (25-35); MEAN CORPUSCULAR HGB CONC 35 g/dL (31-37); MEAN CORPUSCULAR VOLUME 85 fL (79-100); MONO # 0.9 x10^3/uL (0.0-1.1); MONO % 6 % (0-9); NEUT # 12.1 x10^3/uL (1.8-7.7); NEUT % 79 % (31-73); PLATELET COUNT 341 x10^3/uL (140-400); RED BLOOD COUNT 4.85 x10^6/uL (3.50-5.40); RED CELL DISTRIBUTION WIDTH 12.9 % (11.5-14.5); WHITE BLOOD COUNT 15.4 x10^3/uL (4.0-11.0)
[2021-01-31] MEDS ORDERED: ONDANSETRON PF 4 MG/2 ML VIAL. IVP ONE (15:45)
[2021-01-31] MEDS ORDERED: IV NORMAL SALINE 1000ML BAG 1,000 ML IV ONE (15:45)
[2021-01-31] MEDS ORDERED: HYDROmorphone 2 MG/ML VIAL IVP ONE ×2 (15:45→16:45)
[2021-01-31 16:17] LABS: CALCIUM 10.2 mg/dL (8.5-10.1); CREATININE 0.9 mg/dL (0.6-1.0); GFR 63.4; POTASSIUM 4.3 mmol/L (3.5-5.1)
[2021-01-31 16:19] LABS: ALBUMIN 4.1 g/dL (3.4-5.0); MAGNESIUM 1.7 mg/dL (1.8-2.4); TOTAL BILIRUBIN 0.5 mg/dL (0.2-1.0); TOTAL PROTEIN 8.2 g/dL (6.4-8.2)
[2021-01-31] MEDS ORDERED: KETOROLAC 15 MG/ML VIAL. IVP ONE (16:45)
[2021-01-31] MEDS ORDERED: LABETALOL 20 MG/4 ML DISP.SYRIN. IVP ONE (16:45)
[2021-01-31] MEDS ORDERED: ORPHENADRINE CITRATE 60 MG/2 ML VIAL. IV ONE (16:45)
[2021-01-31 18:00] VITALS: BP 189/81
[2021-01-31] MEDS ORDERED: ORPH100T PO (18:22)
[2021-01-31] MEDS ORDERED: OXYC1TAB22 PO (18:22)
--- NOTE | 2021-01-31 18:23 | PHYS DOC ---
Past Medical History Past Medical History: Anxiety, Depression, Diabetes-Type II, Hypertension, Other Additional Past Medical Histor: shingles, back pain Past Surgical History: , Other Additional Past Surgical Histo: pain pump insertion, CARPEL TUNNEL, 4 BACK SURGERIES Smoking Status: Never Smoker Alcohol Use: None Drug Use: Marijuana General Adult EDM: Chief Complaint: BACK PAIN - NO INJURY HPI: HPI: Patient is a 60 year old [f__sex] who presents with [] Review of Systems: Review of Systems: Constitutional: Denies fever or chills Eyes: Denies redness or eye pain HENT: Denies nasal congestion or sore throat Respiratory: Denies cough or shortness of breath Cardiovascular: Denies chest pain or palpitations GI: Denies abdominal pain, nausea, or vomiting : Denies dysuria or hematuria Musculoskeletal: Denies back pain or joint pain Integument: Denies rash or skin lesions Neurologic: Denies headache, focal weakness or sensory changes Complete systems were reviewed and found to be within normal limits, except as documented in this note. Heart Score: C/O Chest Pain: N/A Current Medications: Current Medications Medications (Trade) Dose Ordered Sig/Yudi Start Time Stop Time Status Last Admin Dose Admin Hydromorphone HCl (Dilaudid) 1 mg 1X ONCE 01/31/21 16:45 01/31/21 16:49 DC 01/31/21 16:57 1 MG Ketorolac Tromethamine (Toradol 15mg Vial) 15 mg 1X ONCE 01/31/21 16:45 01/31/21 16:49 DC 01/31/21 16:56 15 MG Labetalol HCl (Normodyne Iv Push) 10 mg 1X ONCE 01/31/21 16:45 01/31/21 16:49 DC 01/31/21 16:57 10 MG Ondansetron HCl (Zofran) 4 mg 1X ONCE 01/31/21 15:45 01/31/21 15:46 DC 01/31/21 15:39 4 MG Orphenadrine Citrate (Norflex) 60 mg 1X ONCE 01/31/21 16:45 01/31/21 16:49 DC 01/31/21 16:56 60 MG Sodium Chloride 1,000 ml @ 1,000 mls/hr 1X ONCE 01/31/21 15:45 8/29/21 16:44 DC 01/31/21 15:39 1,000 MLS/HR Allergies: Allergies: Allergies Coded Allergies Type Severity Reaction Last Updated Verified fentanyl Allergy Severe Anaphylaxis 01/16/15 Yes iodine Allergy Intermediate 01/16/15 Yes lorazepam Allergy Intermediate CRAZY FEELINGS 01/16/15 Yes Physical Exam: PE: Constitutional: Well developed, well nourished, no acute distress, non-toxic appearance HENT: Normocephalic, atraumatic Eyes: PERRL, EOMI, conjunctiva normal, no discharge Neck: Normal range of motion, no tenderness, supple Lungs & Thorax: No respiratory distress, equal chest rise and fall Abdomen: Soft, no tenderness Skin: Warm, dry, no erythema, no rash Back: No tenderness, no CVA tenderness Extremities: No tenderness, ROM intact, no edema Neurologic: Alert and oriented X 3, normal motor function, normal sensory function, no focal deficits noted Psychologic: Affect normal, judgment normal Current Patient Data: Labs: Laboratory Tests Test 01/31/21 15:35 White Blood Count 15.4 x10^3/uL (4.0-11.0) H Red Blood Count 4.85 x10^6/uL (3.50-5.40) Hemoglobin 14.5 g/dL (12.0-15.5) Hematocrit 41.2 % (36.0-47.0) Mean Corpuscular Volume 85 fL (79-100) Mean Corpuscular Hemoglobin 30 pg (25-35) Mean Corpuscular Hemoglobin Concent 35 g/dL (31-37) Red Cell Distribution Width 12.9 % (11.5-14.5) Platelet Count 341 x10^3/uL (140-400) Neutrophils (%) (Auto) 79 % (31-73) H Lymphocytes (%) (Auto) 14 % (24-48) L Monocytes (%) (Auto) 6 % (0-9) Eosinophils (%) (Auto) 1 % (0-3) Basophils (%) (Auto) 1 % (0-3) Neutrophils # (Auto) 12.1 x10^3/uL (1.8-7.7) H Lymphocytes # (Auto) 2.1 x10^3/uL (1.0-4.8) Monocytes # (Auto) 0.9 x10^3/uL (0.0-1.1) Eosinophils # (Auto) 0.2 x10^3/uL (0.0-0.7) Basophils # (Auto) 0.1 x10^3/uL (0.0-0.2) Sodium Level 139 mmol/L (136-145) Potassium Level 4.3 mmol/L (3.5-5.1) Chloride Level 101 mmol/L (98-107) Carbon Dioxide Level 25 mmol/L (21-32) Anion Gap 13 (6-14) Blood Urea Nitrogen 11 mg/dL (7-20) Creatinine 0.9 mg/dL (0.6-1.0) Estimated GFR (Cockcroft-Gault) 63.4 BUN/Creatinine Ratio 12 (6-20) Glucose Level 232 mg/dL (70-99) H Lactic Acid Level 2.4 mmol/L (0.4-2.0) H Calcium Level 10.2 mg/dL (8.5-10.1) H Magnesium Level 1.7 mg/dL (1.8-2.4) L Total Bilirubin 0.5 mg/dL (0.2-1.0) Aspartate Amino Transferase (AST) 17 U/L (15-37) Alanine Aminotransferase (ALT) 28 U/L (14-59) Alkaline Phosphatase 122 U/L (46-116) H Creatine Kinase 93 U/L (26-192) Creatine Kinase MB (Mass) 2.0 ng/mL (0.0-3.6) Creatine Kinase MB Relative Index 2.2 % (0-4) Troponin I Quantitative < 0.017 ng/mL (0.000-0.055) Total Protein 8.2 g/dL (6.4-8.2) Albumin 4.1 g/dL (3.4-5.0) Albumin/Globulin Ratio 1.0 (1.0-1.7) Laboratory Tests 01/31/21 15:35 Laboratory Tests 01/31/21 15:35 Vital Signs: Vital Signs Date Time Temp Pulse Resp B/P (MAP) Pulse Ox O2 Delivery O2 Flow Rate FiO2 01/31/21 16:57 16 98 Room Air 01/31/21 16:57 101 238/105 01/31/21 14:39 97.8 97.8 EKG: EKG: [] Radiology/Procedures: Radiology/Procedures: [] Course & Med Decision Making: Course & Med Decision Making Pertinent Lab studies reviewed. (See chart for details) Patient stable for discharge with outpatient follow-up with PCP/pain management. Pain management referral provided. Discussed findings and plan with patient, who acknowledges understanding and agreement. Malu Disclaimer: Malu Disclaimer: This electronic medical record was generated, in whole or in part, using a voice recognition dictation system. Departure Departure Impression: Primary Impression: Acute exacerbation of chronic low back pain Additional Impressions: Hypertension Qualified Codes: I10 - Essential (primary) hypertension Lactic acidosis Disposition: HOME / SELF CARE / HOMELESS Condition: IMPROVED Referrals: BHAVANA TRAN MD (PCP) ALLISON LYNNE MD Patient Instructions: Chronic Back Pain, Chronic Pain Management Scripts Oxycodone/Apap 10-325 (PERCOCET 10-325 MG TABLET ) 1 Each Tablet 0.5-1 TAB PO PRN Q6HRS PRN for PAIN, #10 TAB 0 Refills Prov: DENYS LA DO 01/31/21 Orphenadrine Citrate (ORPHENADRINE CITRATE) 100 Mg Tablet.er 100 MG PO BID PRN for MUSCLE PAIN, #14 TAB Prov: DENYS LA DO 01/31/21 DENYS LA DO Jan 31, 2021 18:23
[2021-01-31] MEDS ORDERED: oxyCODONE/APAP 10/325 1 TAB TABLET PO ONE (18:30)
[2021-01-31] MEDS ORDERED: DEXAMETHASONE 4 MG TABLET PO ONE (18:30)
[2021-02-01] MEDS ORDERED: OXYC1TAB22 PO (14:40)
== END 2021-01-31 18:42 | disposition home or self-care (01) ==
LOC: ER 14:30
DX: G89.29 Other chronic pain (principal); M54.5 Low back pain; I10 Essential (primary) hypertension; E87.2 Acidosis; E11.9 Type 2 diabetes mellitus without complications; F41.9 Anxiety disorder, unspecified; F32.9 Major depressive disorder, single episode, unspecified; Z88.4 Allergy status to anesthetic agent; Z88.8 Allergy status to other drugs, medicaments and biological substances
CPT/HCPCS: 36415; 80053; 82553; 83605; 83735; 84484; 85025; 96361; 96374; 96375; 96376; 99285; J1170; J1885; J2360; J2405; J3490; J7030

== ENCOUNTER 2021-02-01 08:07 | Day surgery (SDC) | payer OTHER, MEDICAID ==
[~2021-02-01] VITALS: Ht 172.7 cm; Wt 65.9 kg
[~2021-02-01 08:07] MED LIST changes: -ceFAZolin SODIUM IV Push 1 GM VIAL. IVP PRN
[2021-02-01] MEDS ORDERED: ONDANSETRON PF 4 MG/2 ML VIAL. ONE ×2 (08:56→11:23)
[2021-02-01] MEDS ORDERED: KETOROLAC 15 MG/ML VIAL. ONE (08:56)
[2021-02-01] MEDS ORDERED: ORPHENADRINE CITRATE 60 MG/2 ML VIAL. ONE (08:56)
[2021-02-01] MEDS ORDERED: HYDROmorphone 2 MG/ML VIAL ONE ×2 (08:57→14:41)
[2021-02-01] MEDS ORDERED: HYDROmorphone 2 MG/ML VIAL IVP ONE ×2 (09:00→10:30)
[2021-02-01] MEDS ORDERED: ONDANSETRON PF 4 MG/2 ML VIAL. IVP ONE (09:00)
[2021-02-01] MEDS ORDERED: IV NORMAL SALINE 1000ML BAG 1,000 ML IV ONE (09:00)
[2021-02-01] MEDS ORDERED: ORPHENADRINE CITRATE 60 MG/2 ML VIAL. IV ONE (09:00)
[2021-02-01] MEDS ORDERED: LABETALOL 20 MG/4 ML DISP.SYRIN. IVP ONE (09:00)
[2021-02-01] MEDS ORDERED: KETOROLAC 15 MG/ML VIAL. IVP ONE (09:00)
[2021-02-01] MEDS ORDERED: MORPHINE SULFATE 2 MG/ML INJ. IVP PRN ×2 (10:00→13:15)
[2021-02-01] MEDS ORDERED: IV RINGERS,LACTATED 1000ML 1,000 ML IV SCH ×2 (10:00→13:15)
[2021-02-01] MEDS ORDERED: BACLOFEN 10 MG TABLET. PO ONE (10:30)
[2021-02-01 10:35] LABS: BILIRUBIN,URINE NEGATIVE (NEG); CLARITY,URINE CLEAR; COLOR,URINE YELLOW; NITRITE,URINE NEGATIVE (NEG); PH,URINE 5.5 (<5.0-8.0); PROTEIN,URINE >=300 mg/dL (NEG-TRACE); UROBILINOGEN,URINE 0.2 mg/dL (0.2 mg/dL)
[2021-02-01 10:38] LABS: BASO % 0 % (0-3); EOS % 0 % (0-3); HEMATOCRIT 40.3 % (36.0-47.0); LYMPH % 12 % (24-48); MEAN CORPUSCULAR HEMOGLOBIN 30 pg (25-35); MEAN CORPUSCULAR HGB CONC 35 g/dL (31-37); MEAN CORPUSCULAR VOLUME 85 fL (79-100); MONO # 0.7 x10^3/uL (0.0-1.1); MONO % 8 % (0-9); NEUT # 7.1 x10^3/uL (1.8-7.7); NEUT % 80 % (31-73); PLATELET COUNT 346 x10^3/uL (140-400); RED BLOOD COUNT 4.72 x10^6/uL (3.50-5.40); RED CELL DISTRIBUTION WIDTH 13.1 % (11.5-14.5); WHITE BLOOD COUNT 8.8 x10^3/uL (4.0-11.0)
[2021-02-01 10:41] LABS: CREATININE 1.1 mg/dL (0.6-1.0); GFR 50.3; POTASSIUM 3.8 mmol/L (3.5-5.1)
--- NOTE | 2021-02-01 10:46 | PHYS DOC ---
Past Medical History Past Medical History: Anxiety, Depression, Diabetes-Type II, Hypertension, Other Additional Past Medical Histor: shingles, back pain Past Surgical History: , Other Additional Past Surgical Histo: pain pump insertion, CARPEL TUNNEL, 4 BACK SURGERIES Smoking Status: Never Smoker Alcohol Use: None Drug Use: Marijuana General Adult EDM: Chief Complaint: BACK PAIN - NO INJURY HPI: HPI: 60-year-old female with chronic low back pain who is on a pain pump presents with worsening pain over the last several days. Patient reports she thinks her pain pump is not functioning. Patient was seen yesterday for same. Patient wi th full laboratory evaluation. Pain medications were provided with interval improvement of her symptoms. Patient had presented to the pain management clinic today and was seen with findings that her pain pump motor was not functioning. Patient was also noted to be hypertensive and therefore sent to the emergency department for pain management and to control her blood pressure. Patient denies any loss of bowel or bladder. Denies fever or chills. Patient does report associated nausea and vomiting. Review of Systems: Review of Systems: Constitutional: Denies fever or chills Eyes: Denies redness or eye pain HENT: Denies nasal congestion or sore throat Respiratory: Denies cough or shortness of breath Cardiovascular: Denies chest pain or palpitations GI: Reports nausea and vomiting : Denies dysuria or hematuria Musculoskeletal: Reports low back pain and muscle spasms in legs Integument: Denies rash or skin lesions Neurologic: Denies headache, focal weakness or sensory changes; denies loss of bowel or bladder Complete systems were reviewed and found to be within normal limits, except as documented in this note. Heart Score: C/O Chest Pain: N/A Current Medications: Current Medications Medications (Trade) Dose Ordered Sig/Yudi Start Time Stop Time Status Last Admin Dose Admin Baclofen (Lioresal) 10 mg 1X ONCE 02/01/21 10:30 02/01/21 10:36 DC Hydromorphone HCl (Dilaudid) 1 mg 1X ONCE 02/01/21 10:30 02/01/21 10:31 DC Ketorolac Tromethamine (Toradol 15mg Vial) 15 mg STK-MED ONCE 02/01/21 08:56 02/01/21 08:56 DC Labetalol HCl (Normodyne Iv Push) 10 mg 1X ONCE 02/01/21 09:00 02/01/21 09:01 DC 02/01/21 10:16 10 MG Morphine Sulfate (Morphine Sulfate) 1 mg PRN Q10MIN PRN 02/01/21 10:00 02/02/21 09:59 Ondansetron HCl (Zofran) 4 mg STK-MED ONCE 02/01/21 08:56 02/01/21 08:56 DC Orphenadrine Citrate (Norflex) 60 mg STK-MED ONCE 02/01/21 08:56 02/01/21 08:57 DC Prochlorperazine Edisylate (Compazine) 5 mg PACU PRN PRN 02/01/21 10:00 02/02/21 09:59 Ringer's Solution 1,000 ml @ 30 mls/hr Q24H 02/01/21 10:00 02/01/21 21:59 Sodium Chloride 1,000 ml @ 1,000 mls/hr 1X ONCE 02/01/21 09:00 02/01/21 09:59 DC 02/01/21 09:26 1,000 MLS/HR Allergies: Allergies: Allergies Coded Allergies Type Severity Reaction Last Updated Verified fentanyl Allergy Severe Anaphylaxis 01/16/15 Yes iodine Allergy Intermediate 01/16/15 Yes lorazepam Allergy Intermediate CRAZY FEELINGS 01/16/15 Yes Physical Exam: PE: Constitutional: Well developed, well nourished, patient appears uncomfortable and in pain HENT: Normocephalic, atraumatic Eyes: Conjunctiva normal, no discharge Neck: Normal range of motion, supple Lungs & Thorax: No respiratory distress, equal chest rise and fall Abdomen: Soft, no tenderness, no guarding Skin: Warm, dry, no erythema, no rash Back: Low lumbar paraspinal tenderness, no CVA tenderness Extremities: No tenderness, ROM intact, no edema Neurologic: Alert and oriented X 3, no focal deficits noted Psychologic: Affect anxious, judgment normal Current Patient Data: Vital Signs: Vital Signs Date Time Temp Pulse Resp B/P (MAP) Pulse Ox O2 Delivery O2 Flow Rate FiO2 02/01/21 10:22 101 27 177/78 (111) 96 02/01/21 09:27 Room Air 02/01/21 08:42 98.6 98.6 EKG: EKG: @1032 NSR at 99bpm, NO ST elevation, QRS 96ms, QT/QTc 376/488ms, q waves noted to I-II, aVF, V3-V6. Radiology/Procedures: Radiology/Procedures: PROCEDURE: CHEST AP ONLY AP chest. HISTORY: Preoperative for back surgery AP view was taken of the chest. Lungs are clear. Heart is normal in size. There is no effusion. IMPRESSION: 1. No acute chest disease. Electronically signed by: Delmar Velasco MD (02/01/2021 10:50 AM) [facility] Course & Med Decision Making: Course & Med Decision Making Pertinent Labs and Imaging studies reviewed. (See chart for details) Patient presents for acute exacerbation of chronic back pain which is secondary to her pain pump not currently functioning. Patient noted to be hypertensive. Hypertension addressed. Pain addressed. Patient requiring to go back to surgery for replacement of her pain pump. Presurgical labs, EKG, and chest x-ray obtained. Patient stable for discharge to OR with pain management for Baclofen pain pump replacement with Dr. Dallas Glass. Discussed findings and plan with patient, who acknowledges understanding and agreement. Malu Disclaimer: Malu Disclaimer: This electronic medical record was generated, in whole or in part, using a voice recognition dictation system. Departure Departure Impression: Primary Impression: Chronic back pain Qualified Codes: M54.5 - Low back pain; G89.29 - Other chronic pain Additional Impression: Baclofen pump failure Qualified Codes: T85.610A - Breakdown (mechanical) of cranial or spinal infusion catheter, initial encounter Disposition: 01 HOME / SELF CARE / HOMELESS (Discharged to OR- Dr. Dallas Glass) Condition: STABLE Referrals: BHAVANA TRAN MD (PCP) DENYS LA DO Feb 01, 2021 10:46
[2021-02-01 10:48] LABS: ALBUMIN 4.3 g/dL (3.4-5.0); MAGNESIUM 1.6 mg/dL (1.8-2.4); TOTAL BILIRUBIN 0.7 mg/dL (0.2-1.0); TOTAL PROTEIN 8.4 g/dL (6.4-8.2)
--- NOTE | 2021-02-01 10:53 | RAD ---
AP chest. HISTORY: Preoperative for back surgery AP view was taken of the chest. Lungs are clear. Heart is normal in size. There is no effusion. IMPRESSION: 1. No acute chest disease. Electronically signed by: Delmar Velasco MD (02/01/2021 10:50 AM) [facility]
[2021-02-01 10:57] LABS: BACTERIA,URINE FEW /HPF (0-FEW)
[2021-02-01 10:58] LABS: AMORPHOUS SEDIMENT,UR PRESENT /HPF; HYALINE CASTS, URINE FEW /HPF
[2021-02-01] MEDS ORDERED: PROPOFOL 10 MG/ML (20ML) VIAL. IV ONE (11:23)
[2021-02-01] MEDS ORDERED: LIDOCAINE 2% PF 5 ML VIAL. ONE (11:23)
[2021-02-01] MEDS ORDERED: DEXAMETHASONE SOD PHOS 4 MG/ML VIAL ONE (11:23)
--- NOTE | 2021-02-01 12:11 | EKG ---
[facility] [address] [place] [address] Test Date: 2021-02-01 Test Time: 10:32:34 Pat Name: MAT FALK Department: Room: Gender: F [employer] Account Executive: : 1960 Requested By: DENYS LA Order Number: [id number] Reading MD: Measurements Intervals [place] Rate: 99 P: 75 DE: 184 QRS: 36 QRSD: 96 T: 20 QT: 376 QTc: 488 Interpretive Statements SINUS RHYTHM PROLONGED QT NO SPECIFIC ECG ABNORMALITIES RI6.02 No previous ECG available for comparison
[2021-02-01] MEDS ORDERED: MORPHINE SULFATE 4 MG/ML INJ. ONE (12:30)
[2021-02-01] MEDS ORDERED: MIDAZOLAM HCL/PF 2 MG/2 ML VIAL. ONE (12:30)
[2021-02-01] MEDS ORDERED: LIDOCAINE 1%/EPI 1:100,000 20 ML VIAL. ONE (12:38)
[2021-02-01] MEDS ORDERED: MORPHINE SULFATE 4 MG/ML INJ. IVP ONE (12:45)
[2021-02-01] MEDS ORDERED: MIDAZOLAM HCL/PF 2 MG/2 ML VIAL. IV ONE (12:45)
[2021-02-01] MEDS ORDERED: INSULIN LISPRO 100 UNIT/ML 3ML VIAL for OP,RR ONLY. SQ PRN (13:15)
[2021-02-01] MEDS ORDERED: PROCHLORPERAZINE 10 MG/2 ML VIAL. IVP PRN (13:15)
[2021-02-01] MEDS ORDERED: HYDROmorphone 2 MG/ML VIAL IVP PRN (13:15)
[2021-02-01] MEDS ORDERED: BUPIVACAINE-EPI 0.5% 30 ML VIAL KIT. ONE (13:15)
[2021-02-01] MEDS ORDERED: FAMOTIDINE 20 MG/2 ML VIAL ONE (13:22)
[2021-02-01] MEDS ORDERED: KETAMINE HCL IN NACL, ISO-OSM 50 MG/5 ML SYRINGE ONE (13:26)
[2021-02-01] MEDS ORDERED: SEVOFLURANE 61 TO 120 MINUTES. IH ONE (13:28)
[2021-02-01] MEDS ORDERED: ceFAZolin SODIUM IV Push 1 GM VIAL. IVP ONE (13:38)
[2021-02-01] MEDS ORDERED: PROCHLORPERAZINE 10 MG/2 ML VIAL. ONE (14:33)
[2021-02-01] MEDS: PROCHLORPERAZINE 10 MG/2 ML VIAL. IVP PRN ×2 (14:40→14:45)
[2021-02-01] MEDS ORDERED: OXYC1TAB22 PO (14:40)
[2021-02-01] MEDS: HYDROmorphone 2 MG/ML VIAL IVP PRN ×2 (14:46→15:11)
[2021-02-01 15:43] VITALS: BP 164/63
[2021-02-01] MEDS ORDERED: oxyCODONE/APAP 10/325 1 TAB TABLET PO ONE (16:00)
--- NOTE | 2021-02-02 18:09 | NUR ---
IP: Informed pt of negative covid test. Pt verbalized understanding.
== END 2021-02-01 17:00 | disposition home or self-care (01) ==
LOC: ER 08:07 → OPSVCIP 08:49 → ER 12:15 → SURHOP 12:15 → SURG 12:15 → ER 16:50 → OPSVCIP 16:50 → SURG 17:00
PROVIDERS: ATTEND Anesthesiology
DX: T85.610A Breakdown (mechanical) of cranial or spinal infusion catheter, initial encounter (principal); M54.5 Low back pain; Z20.822 Contact with and (suspected) exposure to COVID-19; I10 Essential (primary) hypertension; E11.9 Type 2 diabetes mellitus without complications; F41.9 Anxiety disorder, unspecified; F32.9 Major depressive disorder, single episode, unspecified; Z79.899 Other long term (current) drug therapy; Y83.8 Other surgical procedures as the cause of abnormal reaction of the patient, or of later complication, without mention of misadventure at the time of the procedure
CPT/HCPCS: 62360; 71045; 80053; 81001; 82553; 82962; 83735; 84484; 85025; 87426; 93005; A4206; A4213; A4220; A4364; A6402; C1772; J0690; J0780; J1100; J1170; J1815; J1885; J2250; J2270; J2360; J2405; J2704; J3490; J7030; J7120; U0003; U0005; A4452

== ENCOUNTER → 2021-02-01 | Outpatient (CLI) | payer OTHER, MEDICAID ==
[2021-01-31 18:00] VITALS: BP 189/81
[~2021-02-01] MED LIST changes: +ORPH100T PO; +OXYC1TAB22 PO; +ceFAZolin SODIUM IV Push 1 GM VIAL. IVP PRN
--- NOTE | 2021-02-01 08:39 | PDOC ---
Progress Note - Pain Clinic Date of Service: DOS: DATE: 02/01/21 TIME: 08:35 Diagnosis: Dx: Chronic pain syndrome Post lumbar laminectomy syndrome Intrathecal pump therapy History or Present Illness: HPI: 60-year-old female presents unscheduled initially this morning reporting the last 24 hours or so significant spasticity and pain in the low back and bilateral lower extremity burning quality is becoming unbearable patient had presented to the emergency room at 11 AM yesterday morning was stabilized and sent home patient reports he got much worse since that time and now returns to our office again unscheduled this morning approximate 730 with 10 out of 10 pain in the low back and bilateral lower extremities patient is have difficulty sitting still in her seat her blood pressure is excessively elevated and upon interrogation of her intrathecal pump shows that his pump stall has occurred. Patient reports she has not been any near any magnets or any MRI scans and the pump is stalled by interrogation. We contacted [facility] herbicide service sales representative who will see her soon as possible to try and evaluate and reset the patient's pump as we are unable to do it on 2 attempts with the software we have in the office. Physical Exam: VS: Blood pressure 210/124 pulse 89 respirations 20 temperature 98.2 F PE: PHYSICAL EXAMINATION: GENERAL: The patient is awake, alert, oriented, appropriate, writhing in pain unable to sit still reports burning and aching in the low back and legs. HEENT: Shows normocephalic, atraumatic. Extraocular movements are intact and symmetrical. NECK: Shows anterior throat supple without palpable lymphadenopathy noted. Swallow reflex symmetrical. CHEST: Shows normal on inspection. Breath sounds are clear bilaterally. HEART: Shows S1, S2 clear. No murmurs auscultated. ABDOMEN: Soft, nontender, nondistended. No palpable organomegaly is noted. Easily palpable intrathecal pump in the right lower quadrant is noted with well- healed surgical scarring. BACK: Shows spine grossly in the midline. Normal-appearing cervical lordotic curvature. There is slightly increased thoracic kyphosis, some minor flattening of the lumbar lordotic curvature. Lumbar paraspinous muscles show symmetrical on inspection, on palpation shows some moderate tenderness diffusely throughout the upper, middle and lower distribution of the paraspinous muscles, but without specific trigger points, without radiation of pain. The patient has good rotational motion of the lumbar spine, both laterally as well as extension and flexion without significant difficulty. No tenderness over the spinous processes, sacrum or sacroiliac regions. SKIN: Shows warm and dry, good turgor. No edema. No sores, rashes or bruising throughout. Procedure: Procedure: Options were discussed with the patient, we contacted the emergency department and will have her a bed held in the department cell for IV access blood pressure control potential IV baclofen as well as clonidine until [employer] services can have patient's pump reset and potentially bolused. Medication Injected: Med Injected: None Condition at Discharge: Condition at Discharge: Patient was discharged to emergency department for stabilization of blood pressure control potential clonidine and baclofen IV administration until [employer] pump can be reset by factory representatives. ALLISON LYNNE MD Feb 01, 2021 08:39
--- NOTE | 2021-02-01 14:35 | DISCH ---
DISCHARGE INSTRUCTIONS Condition on Discharge Condition on Discharge: Stable Activity After Discharge Activity Instructions for Disc: Activity as tolerated Bathing Instructions: No Tub Bath until see Lifting Instructions after Dis: No heavy lifting Exercise Instruction after Dis: Progress as tolerated Driving Instructions after Dis: Do not drive today Weight Bearing Status after Di: As tolerated Diet after Discharge Diet after Discharge: Regular Diet Texture: Regular Liquid Texture: Thin Liquid Wound Incision Care Wound/Incision Care: Reinforce dressing PRN Checks after Discharge Checks after discharge: Check blood press - daily, Check blood sugar, ac/hs Contacting the DRRuben after DC Call your doctor for: If your condition worsens Treatment/Equipment after DC Adaptive Equipment Issued: None ALLISON LYNNE MD Feb 01, 2021 14:35
--- NOTE | 2021-02-01 15:14 | PDOC4 ---
OPERATIVE NOTE Date: Date: Feb 01, 2021 Pre-Op Diagnosis: Chronic pain syndrome Postlaminectomy syndrome lumbosacral Failure intrathecal pump device Post-Op Diagnosis: Same Procedure Performed: Removal and replacement intrathecal pump Surgeon: Quan Anesthesia Type: GeneralLMA Blood Loss: 5 cc approximate Specimans Obtained: Old intrathecal pump Findings: See dictation Complications: None Operative Note: Patient was consented for intrathecal pump removal and replacement secondary to intrathecal pump device malfunction. Risk were discussed including but not limited to bleeding infection possibility of necessary revision of pocket as well as catheter revision and/or replacement as well. Patient understands wishes to proceed. Patient was taken to operating Ruel. 6 and in supine position, general anesthesia was induced with ASA monitors in place. Patient's abdomen was sterilely prepped and draped in usual fashion allowing 3 minutes of drying time for the prep. At this time the area overlying the intrathecal pump in the right lower quadrant was identified using 1% lidocaine with 1-200,000 epinephrine, was injected along the transverse path of the desired incision site just below the previous surgical scar over the intrathecal pump. This time using a 15 blade scalpel incision was made through the anesthetized skin and a transverse oblique fashion continued with blunt and dull dissection to expose the intrathecal pump which was expressed from the pocket without difficulty. Pump and tubing was inspected pump was then disconnected from the quick connector on the intrathecal catheter. New pump had been primed over 19-minute. With new medication containing clonidine baclofen and bupivacaine with continuous and PTM settings to identical to previous pump settings. Pump was attached to the quick connect intrathecal catheter interface without difficulty and was noted to be secured and rotated easily without dislodgment. This time pocket was inspected once again irrigated x3 with bacitracin irrigation and ins pected for local hemorrhage which was controlled using electrocautery. This time pump was then replaced into the pocket without difficulty and oriented in a similar fashion to the old pump with ease of tension on the intrathecal catheter. At this time the wound was then closed using 2-0 Vicryl for subcutaneous fashions layer in an interrupted fashion, followed by skin closure subcuticular 3-0 Vicryl in a running fashion. Mastisol and Steri-Strips were then applied, followed by sterile island dressing. Patient tolerated procedure well and had no immediate complications was transferred to the recovery room in good stable and awake condition. ALLISON LYNNE MD Feb 01, 2021 15:14
== END | disposition home or self-care (01) ==
LOC: PNCL 07:58
PROVIDERS: ATTEND Anesthesiology
DX: G89.29 Other chronic pain (principal); M96.1 Postlaminectomy syndrome, not elsewhere classified; I11.0 Hypertensive heart disease with heart failure; I50.9 Heart failure, unspecified; E78.00 Pure hypercholesterolemia, unspecified; J43.9 Emphysema, unspecified; E66.9 Obesity, unspecified; E11.9 Type 2 diabetes mellitus without complications; K21.9 Gastro-esophageal reflux disease without esophagitis; F41.9 Anxiety disorder, unspecified; F32.9 Major depressive disorder, single episode, unspecified; Z87.891 Personal history of nicotine dependence; Z79.82 Long term (current) use of aspirin; Z79.84 Long term (current) use of oral hypoglycemic drugs; Z79.899 Other long term (current) drug therapy; Z98.890 Other specified postprocedural states; Z82.49 Family history of ischemic heart disease and other diseases of the circulatory system; Z88.6 Allergy status to analgesic agent; Z88.8 Allergy status to other drugs, medicaments and biological substances
CPT/HCPCS: 99212; G0463

== ENCOUNTER → 2021-02-09 | Outpatient (CLI) | payer OTHER, MEDICAID ==
[2021-02-01 15:43] VITALS: BP 164/63
[~2021-02-09] MED LIST changes: +BACLOFEN IT ONE; +BUPIVACAINE MPF 0.75% 30 ML VIAL. ONE; +[UNRECOGNIZED DRUG - OTHER] IT ONE; +cloNIDine PF 5,000 MCG/10 ML VIAL EP ONE
--- NOTE | 2021-02-09 12:59 | PDOC ---
Progress Note - Pain Clinic Date of Service: DOS: DATE: 02/09/21 TIME: 12:56 Diagnosis: Dx: Chronic pain syndrome Post lumbar laminectomy syndrome History or Present Illness: HPI: 60-year-old female returns for follow-up status post intrathecal pump replacement February 01, 2021. Patient is pump and now function with battery not working and stumbling with semiurgent pump replacement on that date. Patient reports now she is near 100% improved where she was pain decreased significantly after the pump was replaced and did have bolused. Patient returns today for pump interrogation check and adjustment as necessary as well as wound check. Patient reports doing very well some soreness in the abdomen or the surgical wound was otherwise not significant. Patient reports no new motor or sensory deficits reports her spasticity is decreased and she is feeling much better at this time. Physical Exam: VS: Blood pressure is 133/66 pulse 81 respirations 18 temperature is 90.4 F height is 5 foot 8 inches weight is 143 pounds PE: PHYSICAL EXAMINATION: GENERAL: The patient is awake, alert, oriented, appropriate, very pleasant in demeanor HEENT: Shows normocephalic, atraumatic. Extraocular movements are intact and symmetrical. Oral cavity: Mucous membranes moist and pink. NECK: Shows anterior throat supple without palpable lymphadenopathy noted. Swallow reflex symmetrical. CHEST: Shows normal on inspection. Breath sounds are clear bilaterally, distant but no rales or rhonchi. HEART: Shows S1, S2 clear. No murmurs auscultated. ABDOMEN: Soft, nontender, nondistended, obese. No palpable organomegaly is noted. Healing surgical scar noted to right lower quadrant at site of intrathecal pump which is easily palpable Steri-Strips still in place no erythema no drainage no tenderness significantly with palpation. BACK: Shows spine grossly in the midline. Normal-appearing cervical lordotic curvature. There is slightly increased thoracic kyphosis, some minor flattening of the lumbar lordotic curvature. Lumbar paraspinous muscles show symmetrical on inspection, on palpation shows some moderate tenderness diffusely throughout the upper, middle and lower distribution of the paraspinous muscles without specific trigger points, without radiation of pain. The patient has good rotational motion of the lumbar spine, both laterally as well as extension and flexion without significant difficulty. No tenderness over the spinous processes, sacrum or sacroiliac regions. EXTREMITIES: Lower extremities show deep tendon reflexes 1 in the patellar and tendo calcaneus tendons. Motor exam is 4 on a scale of 5 with right dorsiflexion, extension, quadriceps and hamstring flexion and 4/5 on the left. Peripheral pulses are 1 posterior tibial. No peripheral edema is noted bilaterally. Lower extremities are warm and dry. SKIN: Shows warm and dry, good turgor. No edema. No sores, rashes or bruising throughout. Procedure: Procedure: Options discussed with patient. Patient chart was reviewed as her current medication regimen updated current review of systems updated today as well. We will take down dressing and redress as noted under sterile technique pump was interrogated and analyzed with good function thus far and refill date March 17, 2021. Medication Injected: Med Injected: None Condition at Discharge: Condition at Discharge: Condition at discharge is stable. ALLISON LYNNE MD Feb 09, 2021 12:59
== END | disposition home or self-care (01) ==
LOC: PNCL 11:36
PROVIDERS: ATTEND Anesthesiology
DX: G89.4 Chronic pain syndrome (principal); M96.1 Postlaminectomy syndrome, not elsewhere classified; I11.0 Hypertensive heart disease with heart failure; I50.9 Heart failure, unspecified; E78.00 Pure hypercholesterolemia, unspecified; J43.9 Emphysema, unspecified; E66.9 Obesity, unspecified; G47.30 Sleep apnea, unspecified; K21.9 Gastro-esophageal reflux disease without esophagitis; F41.9 Anxiety disorder, unspecified; F32.9 Major depressive disorder, single episode, unspecified; E11.9 Type 2 diabetes mellitus without complications; Z87.891 Personal history of nicotine dependence; Z79.82 Long term (current) use of aspirin; Z79.4 Long term (current) use of insulin; Z79.899 Other long term (current) drug therapy; Z98.890 Other specified postprocedural states; Z88.6 Allergy status to analgesic agent; Z91.041 Radiographic dye allergy status; Z88.8 Allergy status to other drugs, medicaments and biological substances
CPT/HCPCS: G0463; J0475; J0735; J3490; 99212

== ENCOUNTER → 2021-02-22 | Outpatient (CLI) | payer OTHER, MEDICAID ==
[2021-02-01 15:43] VITALS: BP 164/63
[~2021-02-22] MED LIST changes: -BACLOFEN IT ONE; -BUPIVACAINE MPF 0.75% 30 ML VIAL. ONE; +REGADENOSON 0.4 MG/5 ML DISP.SYRIN. IV ONE; -[UNRECOGNIZED DRUG - OTHER] IT ONE; -cloNIDine PF 5,000 MCG/10 ML VIAL EP ONE
--- NOTE | 2021-02-22 16:49 | RAD ---
MR#: [id number] Date of Study: 02/22/2021 Ordering Physician: SAMARA SULLIVAN, Referring Physician: BOZENA VALERIO Tech: RT Brenda (R) (N) APPROVED REPORT Test Type: Pharmacological Stress Nurse/Tech: Susan Galdamez R.N. Test Indications: chest pain, tachycardia Cardiac History: copd, htn, dm, Medications: See Electronic Medical Record Medical History: See Electronic Medical Record Resting ECG: sr, prolonged QT Resting Heart Rate: 65 bpm Resting Blood Pressure: 146/55mmHg Pretest Chest Pain: No chest pain Nurse/Tech Notes lungs cta, heart tones regular Consent: The procedure was explained to the patient in lay terms. Informed consent was witnessed. Vincenzo eout was entered into [employer]. History and Stress Test performed by RAJAT Mauro, CRISTOPHER (R) (N) Pharm. Details Pharmacologic stress testing was performed using 0.4mg per 5ml of regadenoson given intravenously ove r 7-10 seconds. Stress Symptoms No chest pain or symptoms. POST EXERCISE Reason for Termination: Infusion complete Max HR: 118 bpm Max Blood Pressure: 156/55mmHg Chest Pain: No. Arrhythmia: No. ST Change: No. INTERPRETATION Stress EKG Conclusion: Baseline EKG showed sinus rhythm. No ischemic changes at peak stress. No arr hythmias. Imaging Protocol IMAGE PROTOCOL: Rest Tc-99m/stress Tc-99m 1 day Rest: Stress: Viability: Radiopharm.Tc99m JyqzyawhmHv26n Sestamibi Nxse41eGe 31mCi Duration 15min. 10min. Img Date 02/22/2021 02/22/2021 Inj-Img Piqe45cch. 60min. Rest Admin Site:IV - Right AntecubitalAdministrator:RAJAT Mauro ARRT (R)(N) Stress Admin Site: IV - Right AntecubitalAdministrator: RAJAT Mauro, CRISTOPHER (R)(N) STRESS DATA End Diast. Vol.84.0mlAv. Heart Rate73.0bpm End Syst. Vol.27.0mlCO Index BSA0.0L/min Myocardial Sjha435.0gEject. Edlkabuw93.0% Stress Rates Pk. Fill Rate2.32EDV/secLVtime Pk. Fill 99.56msec Pk. Empty Rate3.03ESV/secLVtime Pk. Nkhds901.59msec 1/3 Pk. Fill1.77EDV/sec Stress Scores Regional WT3.00Summed WT30.00 Regional WM0.00Summed WM1.00 Study quality was good. Left Ventricular size was Normal at Rest and Stress. Lung uptake was . Left Ventricular ejection fraction is 67%. The rest and stress images show normal perfusion, normal contraction and thickening. LV Perf. Quant 17 Seg. SSS1.00 17 Seg. SRS1.00 17 Seg. SDS0.00 Stress Defect Extent (% LAD)0.00Rest Defect Extent (% LAD)0.00Rev. Defect Extent (% LAD)0.00 Stress Defect Extent (% LCX) 0.00Rest Defect Extent (% LCX)0.00Rev. Defect Extent (% LCX)0.00 Stress Defect Extent (% RCA)0.00Rest Defect Extent (% RCA)0.00Rev. Defect Extent (% RCA)0.00 Stress Defect Extent (% JUNIOR)0.00Rest Defect Extent (% JUNIOR)0.00Rev. Defect Extent (% JUNIOR)0.00 Conclusion 1. Regadenoson cardioisotope stress test did not show any evidence of ischemia or infarct. 2. Normal left ventricular systolic function with ejection fraction calculated at 67%. 3. Low risk for cardiac events. Signed by : Declan Alexandra, Electronically Approved : 02/22/2021 16:48:47
== END ==
LOC: NM 08:20
PROVIDERS: ATTEND Internal Medicine Cardiovascular Disease
DX: R06.00 Dyspnea, unspecified (principal)
CPT/HCPCS: 78452; 93017; A9500; J2785

== ENCOUNTER → 2021-03-16 | Outpatient (CLI) | payer OTHER, MEDICAID ==
[~2021-03-16] MED LIST changes: +BACLOFEN IT ONE; +BUPIVACAINE MPF 0.75% 30 ML VIAL. ONE; -CITA40TA5 PO; +CITA40TA6 PO; +CYCL10TA19 PO; -CYCL10TA2 PO; -REGADENOSON 0.4 MG/5 ML DISP.SYRIN. IV ONE; +[UNRECOGNIZED DRUG - OTHER] IT ONE; +cloNIDine PF 5,000 MCG/10 ML VIAL EP ONE
== END | disposition home or self-care (01) ==
LOC: PNCL 11:15
PROVIDERS: ATTEND Anesthesiology Hospice and Palliative Medicine
DX: M54.59 Other low back pain (principal); M79.18 Myalgia, other site; I11.0 Hypertensive heart disease with heart failure; I50.9 Heart failure, unspecified; E78.00 Pure hypercholesterolemia, unspecified; M19.90 Unspecified osteoarthritis, unspecified site; E66.9 Obesity, unspecified; K21.9 Gastro-esophageal reflux disease without esophagitis; F41.9 Anxiety disorder, unspecified; F32.9 Major depressive disorder, single episode, unspecified; J43.9 Emphysema, unspecified; G47.30 Sleep apnea, unspecified; Z87.891 Personal history of nicotine dependence; Z79.899 Other long term (current) drug therapy; Z98.890 Other specified postprocedural states; Z79.82 Long term (current) use of aspirin; Z79.4 Long term (current) use of insulin; Z88.6 Allergy status to analgesic agent; Z91.041 Radiographic dye allergy status; Z88.8 Allergy status to other drugs, medicaments and biological substances
CPT/HCPCS: 62370; J0475; J0735; J3490

== ENCOUNTER → 2021-04-01 | Outpatient (CLI) | payer OTHER, MEDICAID ==
[~2021-04-01] MED LIST changes: -BACLOFEN IT ONE; -BUPIVACAINE MPF 0.75% 30 ML VIAL. ONE; -[UNRECOGNIZED DRUG - OTHER] IT ONE; -cloNIDine PF 5,000 MCG/10 ML VIAL EP ONE
--- NOTE | 2021-04-01 12:55 | PDOC ---
Progress Note - Pain Clinic Date of Service: DOS: DATE: 04/01/21 TIME: 12:51 Diagnosis: Dx: Chronic pain syndrome Post lumbar laminectomy syndrome History or Present Illness: HPI: 60-year-old female returns for follow-up status post intrathecal pump refill and reprogramming March 16, 2021. Patient called this morning reporting that she feels that the dose is too high that she is having some increased muscle relaxation and flaccidity of the muscles that difficulty getting up and around feels generally malaised and tired as well as week patient reports mostly in the back and lower extremities but overall feels weak and as though the baclofen level is too high. Patient reports still significant pain in the low back and the lower extremities but rates the flaccidity at an 8 on a scale out of 10 patient reports is aching and dull in the back cramping as well worse with attempted movements change positions and etc. but she has been sleeping more than normal and this does not feel right to her as well. Patient reports no other side effects at this time no nausea vomiting no itching, constipation or other complaints. Physical Exam: VS: Blood pressure is 144/52 pulse 62 respirations 18 temperature 98.1 F height 5 foot 8 inches weight is 142 pounds. PE: PHYSICAL EXAMINATION: GENERAL: The patient is awake, alert, oriented, appropriate, very pleasant in demeanor HEENT: Shows normocephalic, atraumatic. Extraocular movements are intact and symmetrical. Oral cavity: Mucous membranes moist and pink. Dentition is intact. NECK: Shows anterior throat supple without palpable lymphadenopathy noted. Swallow reflex symmetrical. CHEST: Shows normal on inspection. Breath sounds clear bilaterally. HEART: Shows S1, S2 clear. No murmurs auscultated. ABDOMEN: Soft, nontender, nondistended. No palpable organomegaly is noted. Easily palpable intrathecal pump in the right lower quadrant with well-healed surgical scarring. BACK: Shows spine grossly in the midline. Normal-appearing cervical lordotic curvature. There is slightly increased thoracic kyphosis, some flattening of the lumbar lordotic curvature. Lumbar paraspinous muscles show symmetrical on inspection, on palpation shows some moderate tenderness diffusely throughout the upper, middle and lower distribution of the paraspinous muscles, but without specific trigger points, without radiation of pain. The patient has good rotational motion of the lumbar spine, both laterally as well as extension and flexion without significant difficulty. No tenderness over the spinous processes, sacrum or sacroiliac regions. EXTREMITIES: Lower extremities show deep tendon reflexes 1+ in the patellar and tendo calcaneus tendons. Motor exam is 4 on a scale of 5 with right dorsiflexion, extension, quadriceps and hamstring flexion and 4/5 on the left. Peripheral pulses are 1+ posterior tibial. No peripheral edema is noted watson aterally. Lower extremities are warm and dry. SKIN: Shows warm and dry, good turgor. No edema. No sores, rashes or bruising throughout. Procedure: Procedure: Options were discussed with the patient. Patient chart reviews her current medication regimen updated current review of systems updated today as well. We will interrogate patient's pump today and changed by decrease of 10% from a rate of 21.02 mg/day baclofen to 19.8 mg/day baclofen. PTM was reprogrammed as well as well as large volumes for patient's pump. At this time, patient will return May for pump refill and reevaluation. Patient was asked to call the clinic in the next 24 hours if not significantly improved. Medication Injected: Med Injected: None Condition at Discharge: Condition at Discharge: Condition at discharge is stable. ALLISON LYNNE MD Apr 01, 2021 12:55
== END | disposition home or self-care (01) ==
LOC: PNCL 11:49
PROVIDERS: ATTEND Anesthesiology
DX: G89.4 Chronic pain syndrome (principal); M96.1 Postlaminectomy syndrome, not elsewhere classified; I11.0 Hypertensive heart disease with heart failure; I50.9 Heart failure, unspecified; E78.00 Pure hypercholesterolemia, unspecified; I10 Essential (primary) hypertension; J43.9 Emphysema, unspecified; G47.30 Sleep apnea, unspecified; E66.9 Obesity, unspecified; K21.9 Gastro-esophageal reflux disease without esophagitis; E11.9 Type 2 diabetes mellitus without complications; F41.9 Anxiety disorder, unspecified; F32.9 Major depressive disorder, single episode, unspecified; Z87.891 Personal history of nicotine dependence; Z79.82 Long term (current) use of aspirin; Z79.899 Other long term (current) drug therapy; Z98.890 Other specified postprocedural states; Z82.49 Family history of ischemic heart disease and other diseases of the circulatory system; Z83.3 Family history of diabetes mellitus; Z88.6 Allergy status to analgesic agent; Z91.041 Radiographic dye allergy status; Z88.8 Allergy status to other drugs, medicaments and biological substances
CPT/HCPCS: 62368

== ENCOUNTER → 2021-05-10 | Outpatient (CLI) | payer OTHER, MEDICAID ==
[~2021-05-10] MED LIST changes: +LIDOCAINE/PRILOCAINE TOPICAL CREAM 5GM TUBE. TP ONE
--- NOTE | 2021-05-10 11:41 | PDOC ---
Progress Note - Pain Clinic Date of Service: DOS: DATE: 05/10/21 TIME: 11:37 Diagnosis: Dx: Chronic pain syndrome Post lumbar laminectomy syndrome History or Present Illness: HPI: 60-year-old female returns for follow-up status post intrathecal pump management with very good results patient reports still significant pain in the low back bilateral lower extremities left greater than right but much better than on her last visit she was having some flaccidity and felt tired we decreased her pump by approximately 10% and she is reporting today that that feeling is gone now and she still has a good reduction in pain but without the tired feeling in the flaccidity patient reports her pain still in the low back and the bilateral lower extremities is a 7 on scale 10 is worse over the past week 5 on average 5 its least is a 5 today patient scribes aching and burning cramping in the back and legs but she is alert what activities she can and cannot do which will exacerbate the pain and avoids the ones that are exacerbated to the most part patient reports is still better with laying down or sitting generally not awaken her from sleep at night although she does not sleep well generally. Patient reports no new side effects with medication patient reports no bowel or bladder incontinence no new weakness Physical Exam: VS: Blood pressure is 141/79 pulse 88 respirations are 20 temperature 97.9 F weight 138 pounds. PE: PHYSICAL EXAMINATION: GENERAL: The patient is awake, alert, oriented, appropriate, very pleasant in demeanor HEENT: Shows normocephalic, atraumatic. Extraocular movements are intact and symmetrical. Oral cavity: Mucous membranes moist and pink. Dentition is intact. NECK: Shows anterior throat supple without palpable lymphadenopathy noted. Swallow reflex symmetrical. CHEST: Shows normal on inspection. Breath sounds are clear bilaterally, distant but no rales or. HEART: Shows S1, S2 clear. No murmurs auscultated. ABDOMEN: Soft, nontender, nondistended, well-healed surgical scar easily palpable intrathecal pump in the right lower quadrant.. No palpable organomegaly is noted. BACK: Shows spine grossly in the midline. Normal-appearing cervical lordotic curvature. There is increased thoracic kyphosis, some flattening of the lumbar lordotic curvature, with well-healed surgical scar noted. Lumbar paraspinous muscles show symmetrical on inspection, on palpation shows some moderate tenderness diffusely throughout the upper, middle and lower distribution of the paraspinous muscles, but without specific trigger points, without radiation of pain. The patient has good rotational motion of the lumbar spine, both laterally as well as extension and flexion without significant difficulty. No tenderness over the spinous processes, sacrum or sacroiliac regions. EXTREMITIES: Lower extremities show deep tendon reflexes 1+ in the patellar and tendo calcaneus tendons. Motor exam is 4 on a scale of 5 with right dorsiflexion, extension, quadriceps and hamstring flexion and 4/5 on the left. Peripheral pulses are 1+ posterior tibial. No peripheral edema is noted bilaterally. Lower extremities are warm and dry to touch, equal in color and appearance. SKIN: Shows warm and dry, good turgor. No edema. No sores, rashes or bruising throughout. Procedure: Procedure: Options discussed with patient. Patient's old chart was reviewed as her current medication regimen updated review of systems updated today as well. We will refill patient's intrathecal pump today and reprogram, risk were discussed including not limited to bleeding infection possibility of extravasation of medication resuscitative measures necessary as well as poor results regarding pain control. Patient understands wished to proceed. Patient will return for refill prior to July 01, 2021. Patient also be started on new medication of naproxen 500 mg twice daily patient's medication was called into her pharmacy, we discussed medication as well as instructions as side effects to be aware of. Medication Injected: Med Injected: Under sterile prep and drape patient's abdomen was prepped over the intrathecal pump, using a 22-gauge noncutting [employer] brand needle the pump was entered without difficulty. Aspiration showed removal of 2 cc of old medication which was discarded. 40 cc of new medication containing bupivacaine clonidine and baclofen was then replaced. Needle was withdrawn and sterile bandage was applied;pump was then reprogrammed for volume as well as alarm settings and PTM reprogrammed as well. Patient tolerated procedure well had no complications. Condition at Discharge: Condition at Discharge: Condition at discharge is stable, patient tolerated procedure well and had no complications. ALLISON LYNNE MD May 10, 2021 11:41
--- NOTE | 2021-05-10 11:42 | PDOC4 ---
Procedure Note: ICD 10 Code: ICD 10 Code: G8 9.4 M 96.1 Procedure Note: Patient was consented for intrathecal pump refill and reprogramming. Risk were discussed including but not limited to bleeding infection possibility of extravasation of medication and possible resuscitative measures as well as poor results regarding pain control. Patient understands wished to proceed. Under sterile prep and drape patient's abdomen was prepped over the intrathecal pump, using a 22-gauge noncutting [employer] brand needle the pump was entered without difficulty. Aspiration showed removal of 2 cc of old medication which was discarded. 40 cc of new medication containing bupivacaine clonidine and baclofen was then replaced. Needle was withdrawn and sterile bandage was applied;pump was then reprogrammed for volume as well as alarm settings and PTM reprogrammed as well. Patient tolerated procedure well had no complications. ALLISON LYNNE MD May 10, 2021 11:42
== END | disposition home or self-care (01) ==
LOC: PNCL 10:54
PROVIDERS: ATTEND Anesthesiology
DX: G89.4 Chronic pain syndrome (principal); M96.1 Postlaminectomy syndrome, not elsewhere classified; I11.0 Hypertensive heart disease with heart failure; I50.9 Heart failure, unspecified; E78.00 Pure hypercholesterolemia, unspecified; J43.9 Emphysema, unspecified; E11.9 Type 2 diabetes mellitus without complications; E66.9 Obesity, unspecified; K21.9 Gastro-esophageal reflux disease without esophagitis; G47.30 Sleep apnea, unspecified; F41.9 Anxiety disorder, unspecified; F32.9 Major depressive disorder, single episode, unspecified; Z87.891 Personal history of nicotine dependence; Z79.899 Other long term (current) drug therapy; Z98.890 Other specified postprocedural states; Z88.6 Allergy status to analgesic agent; Z88.8 Allergy status to other drugs, medicaments and biological substances; Z82.49 Family history of ischemic heart disease and other diseases of the circulatory system; Z83.3 Family history of diabetes mellitus
CPT/HCPCS: 62370

== ENCOUNTER → 2021-07-09 | Outpatient (CLI) | payer OTHER, MEDICAID ==
[~2021-07-09] MED LIST changes: +BACLOFEN IT ONE; +BUPIVACAINE MPF 0.75% 30 ML VIAL. ONE; -FENO134C PO; +FENO134C22 PO; +[UNRECOGNIZED DRUG - OTHER] IT ONE; +cloNIDine PF 5,000 MCG/10 ML VIAL EP ONE
== END | disposition home or self-care (01) ==
LOC: PNCL 08:00
PROVIDERS: ATTEND Anesthesiology
DX: G89.4 Chronic pain syndrome (principal); M96.1 Postlaminectomy syndrome, not elsewhere classified; I11.0 Hypertensive heart disease with heart failure; I50.9 Heart failure, unspecified; E78.00 Pure hypercholesterolemia, unspecified; J43.9 Emphysema, unspecified; E66.9 Obesity, unspecified; K21.9 Gastro-esophageal reflux disease without esophagitis; F41.9 Anxiety disorder, unspecified; F32.9 Major depressive disorder, single episode, unspecified; G47.30 Sleep apnea, unspecified; F17.210 Nicotine dependence, cigarettes, uncomplicated; Z79.899 Other long term (current) drug therapy; Z98.890 Other specified postprocedural states; Z88.6 Allergy status to analgesic agent; Z91.041 Radiographic dye allergy status; Z88.8 Allergy status to other drugs, medicaments and biological substances
CPT/HCPCS: 62370; J0475; J0735; J3490

== ENCOUNTER → 2021-08-30 | Outpatient (CLI) | payer OTHER, MEDICAID ==
[~2021-08-30] MED LIST changes: -BACLOFEN IT ONE; -BUPIVACAINE MPF 0.75% 30 ML VIAL. ONE; -[UNRECOGNIZED DRUG - OTHER] IT ONE; -cloNIDine PF 5,000 MCG/10 ML VIAL EP ONE
--- NOTE | 2021-08-30 11:14 | PDOC ---
Progress Note - Pain Clinic Date of Service: DOS: DATE: 08/30/21 TIME: 11:10 Diagnosis: Dx: Chronic pain syndrome Post lumbar laminectomy syndrome History or Present Illness: HPI: 61-year-old female returns for follow-up status post intrathecal pump management with clonidine baclofen and bupivacaine. Patient reports he is doing fairly well been on very stable regimen with the medication ranges 8 on scale 10 is worst over the past week 6 on average 4 to [place] is a 4 today patient reports pain in the low back mainly and some in the right shoulder as well patient reports cramping and aching dull in the back but tolerable with the medication at its current level patient reports no side effects with medication reports her pain today is a 4. Patient reports no new motor or sensory deficits no bowel or bladder incontinence some cramping sensation in the low back as well more recently only with extended walking or standing. Patient reports she has a new dog that she has been helping train for her grandson and is becoming more stressful on her back but knows when to decrease the activity to best keep her back rested. Patient returns for intrathecal pump refill and reprogramming today. Physical Exam: VS: Blood pressure is 172/90 pulse 79 respirations 16 temperature 98.4 F weight is 138 pounds. PE: PHYSICAL EXAMINATION: GENERAL: The patient is awake, alert, oriented, appropriate, very pleasant in demeanor HEENT: Shows normocephalic, atraumatic. Extraocular movements are intact and symmetrical. Patient wearing eyeglasses. Oral cavity: Mucous membranes moist and pink. Dentition is intact. NECK: Shows anterior throat supple without palpable lymphadenopathy noted. Swallow reflex symmetrical. CHEST: Shows normal on inspection. Breath sounds are clear bilaterally, no rales or rhonchi. HEART: Shows S1, S2 clear. No murmurs auscultated. ABDOMEN: Soft, nontender, nondistended. No palpable organomegaly is noted. Easily palpable intrathecal pump with well-healed surgical scar on the right lower quadrant. BACK: Shows spine grossly in the midline. Normal-appearing cervical lordotic curvature. There is mildly increased thoracic kyphosis, some flattening of the lumbar lordotic curvature. Lumbar paraspinous muscles show symmetrical on inspection, on palpation shows some moderate tenderness diffusely throughout the upper, middle and lower distribution of the paraspinous muscles, but without specific trigger points, without radiation of pain. The patient has good rotational motion of the lumbar spine, both laterally as well as extension and flexion without significant difficulty. No tenderness over the spinous processes, sacrum or sacroiliac regions. EXTREMITIES: Lower extremities show deep tendon reflexes 1+ in the patellar and tendo calcaneus tendons. Motor exam is 4 on a scale of 5 with right dorsiflexion, extension, quadriceps and hamstring flexion and 4/5 on the left. Peripheral pulses are 1+ posterior tibial. No peripheral edema is noted bilaterally. Lower extremities are warm and dry. SKIN: Shows warm and dry, good turgor. No edema. No sores, rashes or bruising throughout. Procedure: Procedure: Options were discussed with the patient. Patient chart was reviewed as her current medication regimen updated current review of systems updated today as well. We will proceed with intrathecal pump refill and reprogramming. Risk were discussed including but limited to bleeding infection possibility of extravasation of medication and resuscitative measures if necessary as well as poor results regarding pain control. Patient understands wishes to proceed. Patient will return to clinic prior to October 21 to be her pump refill date as scheduled currently. Medication Injected: Med Injected: Under sterile prep and drape patient's abdomen was prepped over the intrathecal pump, using a 22-gauge noncutting [employer] brand needle the pump was entered without difficulty. Aspiration showed removal of 6 cc of old medication which was discarded. 40 cc of new medication containing bupivacaine clonidine and baclofen was then replaced. Needle was withdrawn and sterile bandage was applied;pump was then reprogrammed for volume as well as alarm settings and PTM reprogrammed as well. Patient tolerated procedure well had no complications. Condition at Discharge: Condition at Discharge: Condition at discharge is stable, paced tolerated the procedure well and had no complications. ALLISON LYNNE MD Aug 30, 2021 11:14
--- NOTE | 2021-08-30 11:15 | PDOC4 ---
Procedure Note: ICD 10 Code: ICD 10 Code: G8 9.4 M 96.1 Procedure Note: Patient was consented for intrathecal pump refill and reprogramming. Risks discussed included but not limited to bleeding infection possibility of intravascular injection sequelae spread of local anesthetic and numbness extravasation of the pump medication and resuscitative measures if necessary as well as poor results regarding pain control. Patient understands and wished to proceed. Under sterile prep and drape patient's abdomen was prepped over the intrathecal pump, using a 22-gauge noncutting [employer] brand needle the pump was entered without difficulty. Aspiration showed removal of 6 cc of old medication which was discarded. 40 cc of new medication containing bupivacaine clonidine and baclofen was then replaced. Needle was withdrawn and sterile bandage was applied;pump was then reprogrammed for volume as well as alarm settings and PTM reprogrammed as well. Patient tolerated procedure well had no complications. ALLISON LYNNE MD Aug 30, 2021 11:15
== END | disposition home or self-care (01) ==
LOC: PNCL 10:03
PROVIDERS: ATTEND Anesthesiology
DX: G89.4 Chronic pain syndrome (principal); M96.1 Postlaminectomy syndrome, not elsewhere classified; I11.0 Hypertensive heart disease with heart failure; I50.9 Heart failure, unspecified; E78.00 Pure hypercholesterolemia, unspecified; E11.9 Type 2 diabetes mellitus without complications; E66.9 Obesity, unspecified; J43.9 Emphysema, unspecified; K21.9 Gastro-esophageal reflux disease without esophagitis; F41.9 Anxiety disorder, unspecified; F32.9 Major depressive disorder, single episode, unspecified; Z87.891 Personal history of nicotine dependence; Z79.899 Other long term (current) drug therapy; Z98.890 Other specified postprocedural states; Z88.6 Allergy status to analgesic agent; Z88.8 Allergy status to other drugs, medicaments and biological substances
CPT/HCPCS: 62370

== ENCOUNTER → 2021-10-22 | Outpatient (CLI) | payer OTHER, MEDICAID ==
[~2021-10-22] MED LIST changes: +BACLOFEN IT ONE; +BUPIVACAINE MPF 0.75% 30 ML VIAL. ONE; -LIDOCAINE/PRILOCAINE TOPICAL CREAM 5GM TUBE. TP ONE; +[UNRECOGNIZED DRUG - OTHER] IT ONE; +cloNIDine PF 5,000 MCG/10 ML VIAL EP ONE
--- NOTE | 2021-10-22 08:33 | PDOC ---
Progress Note - Pain Clinic Date of Service: DOS: DATE: 10/22/21 TIME: 08:30 Diagnosis: Dx: Pain syndrome Post lumbar laminectomy syndrome History or Present Illness: HPI: 61-year-old female returns for follow-up status post intrathecal pump therapy patient reports he is doing very well with about 75% improvement overall with the intrathecal pump medication patient reports of some pain in the low back and bilateral lower extremities but very well managed with her current medication regimen patient reports is a 7 on scale 10 is worse over the past week 5 on average 5 to [place] is a 5 today patient report is aching and dull cramping in the back into the lower extremities posterior gluteus lateral thighs anterior thighs and into the posterior thighs as well patient reports better with sitting or laying down but does awaken from sleep about once or twice a night patient reports no bowel or bladder incontinence no loss of motor function but some easy fatigability lower extremities bilaterally. Patient reports again no side eff ects with medication and is doing fairly well on a stable regimen with her pump at this time. Physical Exam: VS: Blood pressure is 145/86 pulse 67 respirations 18 temperature 98.5 F weight is 141 pounds. PE: PHYSICAL EXAMINATION: GENERAL: The patient is awake, alert, oriented, appropriate, very pleasant in demeanor HEENT: Shows normocephalic, atraumatic. Extraocular movements are intact and symmetrical. Oral cavity: Mucous membranes moist and pink. Dentition is intact. NECK: Shows anterior throat supple without palpable lymphadenopathy noted. Swallow reflex symmetrical. CHEST: Shows normal on inspection. Breath sounds are clear bilaterally, distant but no rales or rhonchi auscultated. HEART: Shows S1, S2 clear. No murmurs auscultated. ABDOMEN: Soft, nontender, nondistended. No palpable organomegaly is noted. Easily palpable intrathecal pump in the right lower quadrant with well-healed surgical scar. BACK: Shows spine grossly in the midline. Normal-appearing cervical lordotic curvature. There is slightly increased thoracic kyphosis, some flattening of the lumbar lordotic curvature with well-healed surgical scarring noted. Lumbar paraspinous muscles show symmetrical on inspection, on palpation shows some moderate tenderness diffusely throughout the upper, middle and lower distribution of the paraspinous muscles, without specific trigger points, without radiation of pain. The patient has good rotational motion of the lumbar spine, both laterally as well as extension and flexion without significant difficulty. No tenderness over the spinous processes, sacrum or sacroiliac regions. EXTREMITIES: Lower extremities show deep tendon reflexes 1+ in the patellar and tendo calcaneus tendons. Motor exam is 4 on a scale of 5 with right dorsiflexion, extension, quadriceps and hamstring flexion and 4/5 on the left. Peripheral pulses are 1+ posterior tibial. No peripheral edema is noted bilaterally. Lower extremities are warm and dry to touch, equal in color and appearance. SKIN: Shows warm and dry, good turgor. No edema. No sores, rashes or bruising throughout. Procedure: Procedure: Options discussed with the patient. Patient's chart was reviewed as her current medication regimen updated current review of systems updated today as well. We will proceed with intrathecal pump refill and reprogramming. Risks are discussed including but not limited to bleeding infection possibility of extravasation of medication and possible resuscitative measures necessary as well as poor results regarding pain control. Patient understands wished to proceed. Patient return prior to December 13 ventricular next refill date at full use. Medication Injected: Med Injected: Under sterile prep and drape patient's abdomen was prepped over the intrathecal pump, using a 22-gauge noncutting T3 [employer] brand needle the pump was entered without difficulty. Aspiration showed removal of 6 cc of old medication which was discarded. 40 cc of new medication containing bupivacaine clonidine and baclofen was then replaced. Needle was withdrawn and sterile bandage was applied;pump was then reprogrammed for volume as well as alarm settings and PTM reprogrammed as well. Patient tolerated procedure well had no complications. Condition at Discharge: Condition at Discharge: Condition at discharge stable, patient tolerated the procedure well and had no complications. ALLISON LYNNE MD October 22, 2021 08:33
--- NOTE | 2021-10-22 08:34 | PDOC4 ---
Procedure Note: ICD 10 Code: ICD 10 Code: G8 9.4 M96.1 Procedure Note: Patient was consented for intrathecal pump refill and reprogramming, risk discussed including but not limited to bleeding infection possibility of extravasation of medication as well as resuscitative measures if necessary as well as poor results regarding pain control. Patient understands wished to proceed. Under sterile prep and drape patient's abdomen was prepped over the intrathecal pump, using a 22-gauge noncutting [employer] brand needle the pump was entered without difficulty. Aspiration showed removal of 6 cc of old medication which was discarded. 40 cc of new medication containing bupivacaine clonidine and baclofen was then replaced. Needle was withdrawn and sterile bandage was applied;pump was then reprogrammed for volume as well as alarm settings and PTM reprogrammed as well. Patient tolerated procedure well had no complications. ALLISON LYNNE MD October 22, 2021 08:33
== END | disposition home or self-care (01) ==
LOC: PNCL 07:47
PROVIDERS: ATTEND Anesthesiology
DX: G89.4 Chronic pain syndrome (principal); M96.1 Postlaminectomy syndrome, not elsewhere classified; I11.0 Hypertensive heart disease with heart failure; I50.9 Heart failure, unspecified; E78.00 Pure hypercholesterolemia, unspecified; J43.9 Emphysema, unspecified; E11.9 Type 2 diabetes mellitus without complications; G47.30 Sleep apnea, unspecified; E66.9 Obesity, unspecified; M19.90 Unspecified osteoarthritis, unspecified site; F41.9 Anxiety disorder, unspecified; F32.9 Major depressive disorder, single episode, unspecified; Z79.84 Long term (current) use of oral hypoglycemic drugs; Z79.899 Other long term (current) drug therapy; Z98.890 Other specified postprocedural states
CPT/HCPCS: 62369; J0475; J0735; J3490; 95991